=== PATIENT | male | born 1950 | race Two or more races ===

== ENCOUNTER 2016-09-22 08:16 | Outpatient (CLI) | payer OTHER ==
[2016-09-22] MEDS ORDERED: CEFTRIAXONE 1 G VIAL IM ONE (11:00)
[2016-09-23] MEDS ORDERED: HYDR25TA4 PO (12:36)
== END 2016-09-22 23:59 | disposition home or self-care (01) ==
LOC: WOU 08:16
PROVIDERS: ATTEND Podiatrist Foot & Ankle Surgery
DX: L89.624 Pressure ulcer of left heel, stage 4 (principal); B35.1 Tinea unguium; M20.5X2 Other deformities of toe(s) (acquired), left foot; R26.9 Unspecified abnormalities of gait and mobility; L03.116 Cellulitis of left lower limb; M10.9 Gout, unspecified; K50.90 Crohn's disease, unspecified, without complications
CPT/HCPCS: 11044; 11047; 87070; 87077; 87186 ×2; 96372; A6402; J0696; J3490

== ENCOUNTER 2016-09-23 09:22 | Inpatient (IN) | payer MEDICARE, OTHER ==
[~2016-09-23] VITALS: Ht 182.9 cm; Wt 99.8 kg
--- NOTE | 2016-09-23 09:41 | NUR ---
pt came in from home, BRIB self c/o L heel ulcer, noted 6x6 ulcer without discharge, VS stable, a/o x 4, Addendum: 09/23/16 at 1112 by HFOX skin warm, non diaphoretic, resp even/unlabored, ambulatory with pain, pulses intact, noted with ortho boot
[2016-09-23] MEDS ORDERED: VANCOMYCIN 1 GM in IV D5W 250 ML IV ONE (10:00)
[2016-09-23] MEDS ORDERED: PIPERACILLIN /TAZOBACTAM 3.375 G in IV D5W 50 ML IV ONE (10:00)
[2016-09-23] MEDS ORDERED: IV NS 0.9% 1,000 ML BAG IV ONE (10:00)
[2016-09-23 10:14] LABS: BASOPHILS % (AUTO) 0.7 % (0.0-2.0); EOSINOPHILS # (AUTO) 0.1 /CMM (0.0-0.7); EOSINOPHILS % (AUTO) 2.5 % (0.0-6.0); HEMATOCRIT 31 % (39-51); HEMOGLOBIN 10.3 g/dL (13.5-17.5); LYMPHOCYTES # (AUTO) 0.4 /CMM (0.8-4.8); LYMPHOCYTES % (AUTO) 16.9 % (20.0-44.0); MEAN CORPUSCULAR HEMOGLOBIN 27 PG (26.0-33.0); MEAN CORPUSCULAR HGB CONC 33 g/dl (31.0-36.0); MEAN CORPUSCULAR VOLUME 82 fL (80-96); MONOCYTES # (AUTO) 0.7 /CMM (0.1-1.30); MONOCYTES % (AUTO) 29.1 % (2.0-12.0); NEUTROPHILS # (AUTO) 1.1 /CMM (1.8-8.9); NEUTROPHILS % (AUTO) 50.8 % (43.0-81.0); PLATELET COUNT (AUTO) 166 /CMM (150-450); RDW COEFFICIENT OF VARIATION 19.8 (11.5-15.0); RED BLOOD CELL COUNT(AUTO) 3.81 MIL/uL (4.5-6.0); WHITE BLOOD COUNT (AUTO) 2.3 K/uL (4.3-11.0)
[2016-09-23] MEDS ORDERED: IV SET PRIMARY 1 EA INFUS.SET MC ONE (10:16)
[2016-09-23] MEDS ORDERED: IV NS 0.9% 3,000 ML ONE (10:16)
[2016-09-23] MEDS ORDERED: IV SET PRIMARY PUMP SET 1 EA INFUS.SET MC ONE (10:16)
[2016-09-23 10:21] LABS: CALCIUM, SERUM 7.7 mg/dL (8.5-10.1); CREATININE 0.9 mg/dL (0.6-1.3); POTASSIUM 3.8 mmol/L (3.5-5.1)
[2016-09-23 10:25] LABS: INR 1.2 (0.87-1.13); PROTHROMBIN TIME 12.6 SECS (9.5-12.7)
--- NOTE | 2016-09-23 10:35 | NUR ---
[facility] P[employer]ATE COMMUNICATIONS SPECIALIST IS DR ROBERTSON
[2016-09-23 10:52] LABS: BAND % (MANUAL) 2 % (0.0-5.0); EOSINOPHILS % (MANUAL) 1 % (0-4); LYMPHOCYTES % (MANUAL) 20 % (16-48); MONOCYTES % (MANUAL) 15 % (0-11.0); NEUTROPHILS % (MANUAL) 62 (42-76)
--- NOTE | 2016-09-23 10:53 | NUR ---
pt dispo: to 203, report to Reema MOJICA verbalized understnading, breating even/unlabored, VS stable, all belongings went with pt to room
--- NOTE | 2016-09-23 11:03 | NUR ---
pt transported to 203, VS stable, NAD noted, all belongings went with pt to room, IVF/ABX on going
[2016-09-23] MEDS ORDERED: FEE PK DOSING 1 MIN EA MC ONE (11:53)
[2016-09-23 12:00] VITALS: BP 133/74
[2016-09-23] MEDS ORDERED: MAGNESIUM HYDROXIDE 30 ML UDC PO PRN (12:00)
[2016-09-23] MEDS ORDERED: Z GUARD REMEDY 2 OZ OINT TP PRN (12:00)
[2016-09-23] MEDS ORDERED: MAG HYDROX/AL HYDROX/SIMETH 30 ML UDC PO PRN (12:00)
[2016-09-23] MEDS ORDERED: ONDANSETRON HCL/PF 4 MG/2 ML VIAL IVP PRN (12:00)
[2016-09-23] MEDS ORDERED: ZOLPIDEM TARTRATE 5 MG TABLET PO PRN (12:00)
[2016-09-23] MEDS ORDERED: ACETAMINOPHEN 325 MG TABLET PO PRN (12:00)
[2016-09-23] MEDS: HYDROCODONE/APAP 5/325MG 1 EACH TABLET PO PRN ×3 (12:19→20:31)
[2016-09-23] MEDS: ENOXAPARIN SODIUM 40 MG/0.4 ML DISP.SYRIN SQ SCH (12:21)
[2016-09-23] MEDS: IV NS 0.9% 1,000 ML IV PRN (12:21)
--- NOTE | 2016-09-23 12:30 | NUR ---
MS RN INITIAL NOTES PATIENT RECEIVED FROM ER IN STABLE CONDITION, NO SOB OR DISTRESS NOTED AT THIS TIME. PATIENT REPORTS TOLERABLE PAIN. PATIENT ORIENTED TO ROOM AND CALL LIGHT. BELONGINGS CHECKED AND VERIFIED. PATIENT HAS 300$ KUHN AND IS REFUSING HAVING HIS WALLET PLACED IN THE SAFE. HE STATES THAT WHEN HIS COMES TO SEE HIM LATER THAT HE WILL SEND IT HOME WITH HER. BED IS IN A LOW POSITION, CALL LIGHT WITHIN PATIENT REACH. WILL CONTINUE TO MONITOR.
[2016-09-23] MEDS ORDERED: HYDR25TA4 PO (12:36)
[2016-09-23] MEDS ORDERED: VANCOMYCIN 1.25 GM in IV D5W 500 ML IV SCH (13:00)
[2016-09-23 16:00] VITALS: BP 146/74
--- NOTE | 2016-09-23 16:06 | NUR ---
RN NOTES CALLED DR ROBERTSON AND INFORMED HER THAT THE MED REC NURSE WAS ABLE TO VERIFY THE PATIENT'S ONE HOME MED. RECEIVED TELEPHONE ORDER TO CONTINUE THE MED. FAXED HOME MED SHEET WITH ORDERS TO PHARMACY.
[2016-09-23] MEDS ORDERED: SECONDARY IV SET 1 EA INFUS.SET MC ONE ×2 (17:50→20:14)
[2016-09-23] MEDS: PIPERACILLIN /TAZOBACTAM 3.375 G in IV D5W 50 ML IV SCH ×2 (18:08→23:18)
--- NOTE | 2016-09-23 18:36 | NUR ---
MS RN CLOSING NOTES NO SIGNIFICANT CHANGES IN PATIENT CONDITION THROUGHOUT THE SHIFT. NO SOB OR DISTRESS NOTED AT THIS TIME. PATIENT DENIES SIGNIFICANT PAIN. BED IN A LOW POSITION, CALL LIGHT WITHIN PATIENT REACH. HAS NOT YET COME TO ASSISTANT ATTORNEY GENERAL PATIENT'S WALLET. WILL ENDORSE FOR KEV.
--- NOTE | 2016-09-23 19:15 | NUR ---
RN INITIAL NOTES: RECEIVED REPORT FROM LALO MOJICA, PT IN BED, SLEEPING, AROUSES TO TACTILE STIMULI, RESPIRATION EVEN AND UNLABORED, RIGHT FA IV ACCESS PATENT AND FLUSHING WELL, INFUSING WITH NS AT 75ML/HR, NO S/S OF REDNESS OR INFILTRATION NOTED, LEFT HEEL WOUND COVERED WITH DRESSING, ELEVATED ON PILLOW, PER DAY RN MRI LEFT FOOT DONE AWAITING RESULT, URINAL WITHIN REACH, SAFETY PRECAUTIONS FOR FALL INITIATED CALL LIGHT IN REACH WILL CONTINUE TO MONITOR
[2016-09-23 20:00] VITALS: BP 116/57
[2016-09-23] MEDS ORDERED: SET RED CAP 1 EA INFUS.SET MC ONE (20:14)
[2016-09-23] MEDS: VANCOMYCIN 1.25 GM in IV D5W 500 ML IV SCH (20:16)
[2016-09-23] MEDS: GENTAMICIN 0.1% OINT 15 GM TUBE TP SCH ×2 (20:17→21:07)
--- NOTE | 2016-09-23 20:17 | NUR ---
REFUSAL FOR DRESSING CHANGE AND GENTAMICIN OINTMENT: INFORMED PT ABOUT OINTMENT CALLED GENTAMICIN TO BE APPLIED TO THE WOUND, AND THE NEED FOR NEW DRESSING CHANGE, PER PT DAY YUNIOR JURADO DID DRESSING CHANGED TWICE TODAY AND HE DOESNT WANT ANOTHER DRESSING CHANGE AT THIS TIME, INFORMED PT ABOUT IMPORTANCE OF CLEANING THE WOUND AND MEDICATION COMPLIANCE BUT PT REFUSED, PT IS ALERT ORIENTED X4, WILL OFFER AGAIN DRESSING CHANGE AND OINTMENT LATER
--- NOTE | 2016-09-23 20:31 | NUR ---
PRN NORCO: PT C/O 10/05 PAIN ON LEFT FOOT AND HEEL, REQUESTING FOR NORCO, PRN NORCO 5/325 MG TAB PO ADMINISTERED TO THE PT AT TIS TIME, EDUCATE PT REGARDING MEDICATION SIDE EFFECT, WILL CONTINUE TO MONITOR AND REASSESS
--- NOTE | 2016-09-23 21:24 | NUR ---
WOUND CARE: WOUND CARE DONE ORDERED, PT TOLERATED DRESSING CHANGE WELL, KEPT LLE OFFLOADED ON PILLOW
--- NOTE | 2016-09-23 21:36 | NUR ---
reassessment: pt stated he's pain is lessened from 10/05 to 07/06, after norco and dressing changed, but he's requesting for his a stronger medication to help alleviate his pain in left foot and heel
--- NOTE | 2016-09-23 22:14 | NUR ---
EPIC LOOM FIXER HELPER: CONTACTED DR STOKES REGARDING PT'S C/O PAIN DESPITE GETTING NORCO PRN Q4HR, PER MD TO GIVE MORPHINE 2MG IVP Q4HR PRN FOR PAIN -01/05
--- NOTE | 2016-09-23 23:00 | NUR ---
rn notes: seen pt sleeping at this time, appears calm and comfortable
[2016-09-24] MEDS: HYDROCODONE/APAP 5/325MG 1 EACH TABLET PO PRN ×5 (04:33→21:20)
--- NOTE | 2016-09-24 04:33 | NUR ---
prn norco: pt c/o 09/05 pain on his left foot requesting for pain medication, prn norco 5/325 mg tab po administered to the pt at this time, will cotninue to monitor and reasses
--- NOTE | 2016-09-24 04:53 | NUR ---
hearing aid left ear: pt noted to have hearing aid on left ear, he removed it when sleeping, and put it back on when awake, informed pt to put it in a cap to make sure its not misplace or something, but pt stated its okay for him to put the hearing aid in the bed side table,
[2016-09-24] MEDS: PIPERACILLIN /TAZOBACTAM 3.375 G in IV D5W 50 ML IV SCH ×3 (05:00→17:19)
[2016-09-24 06:42] LABS: BASOPHILS % (AUTO) 0.8 % (0.0-2.0); EOSINOPHILS # (AUTO) 0.1 /CMM (0.0-0.7); EOSINOPHILS % (AUTO) 6.9 % (0.0-6.0); HEMATOCRIT 30 % (39-51); HEMOGLOBIN 9.9 g/dL (13.5-17.5); LYMPHOCYTES # (AUTO) 0.4 /CMM (0.8-4.8); LYMPHOCYTES % (AUTO) 20.9 % (20.0-44.0); MEAN CORPUSCULAR HEMOGLOBIN 27 PG (26.0-33.0); MEAN CORPUSCULAR HGB CONC 34 g/dl (31.0-36.0); MEAN CORPUSCULAR VOLUME 82 fL (80-96); MONOCYTES # (AUTO) 0.5 /CMM (0.1-1.30); MONOCYTES % (AUTO) 28.5 % (2.0-12.0); NEUTROPHILS # (AUTO) 0.7 /CMM (1.8-8.9); NEUTROPHILS % (AUTO) 42.9 % (43.0-81.0); PLATELET COUNT (AUTO) 124 /CMM (150-450); RDW COEFFICIENT OF VARIATION 21.3 (11.5-15.0); RED BLOOD CELL COUNT(AUTO) 3.62 MIL/uL (4.5-6.0)
--- NOTE | 2016-09-24 06:43 | NUR ---
RN CLOSING NOTES: PT IN BED, AWAKE, LAST PAIN MEDS GIVEN AT 0433am, NO SOB NOTED, RFA IV ACCESS REMAINS PATENT AND FLUSHING WELL, ON HL, PT STILL REFUSED TO BE CONNECTED TO IVF,EDUCATION PROVIDED TO THE PT, LEFT FOOT REMAINS ELEVATED ON PILLOW, NO UNTOWARD EVENT HAPPENED THROUGHOUT THE SHIFT, VS REMAINS STABLE, NEEDS ATTENDED, SAFETY PRECAUTIONS FOR FALL REMAINS ENGAGED, CALL LIGHT IN REACH, WILL ENDORSE TO DAY RN FOR KEV.
[2016-09-24 06:57] LABS: CALCIUM, SERUM 7.7 mg/dL (8.5-10.1); CREATININE 0.8 mg/dL (0.6-1.3); MAGNESIUM 1.5 mg/dL (1.8-2.4); PHOSPHORUS 3.6 mg/dL (2.5-4.9); POTASSIUM 3.5 mmol/L (3.5-5.1)
--- NOTE | 2016-09-24 07:03 | NUR ---
CRITICAL LAB: SEEN LAB RESULT WBC 1.7, PREVIOUS RESULT FROM YESTERDAY WAS 2.3, NO CALL RECEIVE FROM LAB REGARDING RESULT, RN JUST SAW THE RESULT IN THE COMPUTER, CONTACTED [facility] ENDODONTIST, DR ROBERTSON FOR THIS AM, AWAITING FOR CALL BACK
[2016-09-24 07:25] LABS: WHITE BLOOD COUNT (AUTO) 1.7 K/uL (4.3-11.0)
--- NOTE | 2016-09-24 07:26 | NUR ---
RN NOTES RECEIVED CALL FROM LAB ON THE CRITICAL LAB RESULT OF WBC OF 1.7. [facility] WAS CALLED AT 0703 BY MERGERS AND ACQUISITIONS CONSULTANT. STILL NO CALL BACK FROM DR ROBERTSON. WILL ATTEMPT SECOND CALL.
--- NOTE | 2016-09-24 07:38 | NUR ---
MS RN NOTES CALLED [facility] AGAIN AND THEY ARE PAGING DR ROBERTSON ABOUT THE CRITICAL WBC OF 1.7. WAITING FOR A RETURN CALL.
--- NOTE | 2016-09-24 07:41 | NUR ---
RN NOTES RECEIVED CALL FROM DR ROBERTSON. STATES THAT SHE WILL HAVE DR PERALTA SEE THE PATIENT ABOUT THE DROP IN WHITE BLOOD CELLS. NO NEW ORDERS. Addendum: 09/24/16 at 0743 by SAY PATRICK RN PLACED CONSULT FOR DR PERALTA
[2016-09-24 07:58] VITALS: BP 144/74
[2016-09-24] MEDS: PANTOPRAZOLE 40 MG TABLET.DR PO SCH (08:03)
[2016-09-24] MEDS: ENOXAPARIN SODIUM 40 MG/0.4 ML DISP.SYRIN SQ SCH (08:03)
[2016-09-24] MEDS: HYDROCHLOROTHIAZIDE 25 MG TABLET PO SCH (08:03)
[2016-09-24] MEDS: FLUCONAZOLE (100 MG) 100 MG TABLET PO SCH (08:03)
[2016-09-24] MEDS: VANCOMYCIN 1.25 GM in IV D5W 500 ML IV SCH (08:03)
[2016-09-24] MEDS: DAKINS QUARTER STRENGTH (0.125%) 480 ML BOTTLE TOP SCH (08:04)
[2016-09-24] MEDS: MUPIROCIN OINT 2% 22 GM TUBE TP SCH (08:05)
[2016-09-24 08:15] LABS: BAND % (MANUAL) 3 % (0.0-5.0); EOSINOPHILS % (MANUAL) 6 % (0-4); LYMPHOCYTES % (MANUAL) 22 % (16-48); MONOCYTES % (MANUAL) 17 % (0-11.0); NEUTROPHILS % (MANUAL) 52 (42-76)
[2016-09-24] MEDS ORDERED: GENTAMICIN 0.1% OINT 15 GM TUBE TP SCH (09:00)
[2016-09-24] MEDS: IV NS 0.9% 1,000 ML IV PRN (11:16)
[2016-09-24] MEDS ORDERED: SECONDARY IV SET 1 EA INFUS.SET MC ONE ×3 (12:02→18:13)
[2016-09-24] MEDS: Magnesium 1GM/D5W 100ML PREMIX 100 ML IV SCH ×2 (12:07→13:07)
[2016-09-24] MEDS: SOD FERRIC GLUC 125 MG in IV NS 0.9% 100 ML IV SCH (14:53)
[2016-09-24 16:00] VITALS: BP 150/80
[2016-09-24] MEDS: LEVOFLOXACIN (500MG) 500 MG TABLET PO SCH (18:47)
--- NOTE | 2016-09-24 19:08 | NUR ---
MS RN CLOSING NOTES NO SIGNIFICANT CHANGES IN PATIENT CONDITION THROUGHOUT THE SHIFT. NO SOB OR DISTRESS NOTED, PATIENT DENIES PAIN AT THIS TIME. BED IN A LOW POSITION, CALL LIGHT WITHIN PATIENT REACH. WILL ENDORSE FOR KEV. STILL WAITING FOR PHARMACY TO DELIVER ROCEPHIN DUE AT 1830. WILL HANG IF DELIVERED BEFORE 1930.
--- NOTE | 2016-09-24 19:20 | NUR ---
RN INITIAL NOTES: RECEIVED REPORT FROM SAY MOJICA, PT IS AWAKE, A/O X4, C/O 4/10 PAIN ON LEFT FOOT, STATED HE WILL WAIT FOR HIS PAIN MEDS AT 2100. RESPIRATION EVEN AND UNLABORED, RIGHT FA IV ACCESS PATENT AND FLUSHING WELL, INFUSING WITH NS AT 75ML/HR, NO S/S OF REDNESS OR INFILTRATION NOTED, LEFT HEEL WOUND COVERED WITH DRESSING, ELEVATED ON PILLOW, URINAL WITHIN REACH, SAFETY PRECAUTIONS FOR FALL INITIATED CALL LIGHT IN REACH WILL CONTINUE TO MONITOR
[2016-09-24] MEDS: CEFTRIAXONE 1 G in IV D5W 50 ML IV SCH (19:32)
--- NOTE | 2016-09-24 19:59 | NUR ---
dr rodrigues coinsultation: dr rodrigues came to see the pt, with new orders for labs and us abdomen complete for tomorrow 09/25/16
[2016-09-24 20:00] VITALS: BP 142/70
--- NOTE | 2016-09-24 21:21 | NUR ---
PRN NORCO: PT C/O 09/05 LEFT FOOT PAIN REQUESTING FOR NOROC, PRN NORCO 5/325 MG TAB PO ADMINISTERED TO THE PT AT THIS TIME, EDUCATE PT REGARDING MEDICATION SIDE EFFECT, WILL CONTINUE TO MONITOR AND REASSESS
--- NOTE | 2016-09-24 21:56 | NUR ---
REFUSAL FOR IVF: PT REFUSED TO BE CONNECTED WITH IVF, EXPLAINED TO THE PT ABOUT IMPORTANCE RISK AND BENEFITS OF IV HYDRATION, PER PT HE DOESNT NEED IT AND HE'S DRINKING WELL, ADEQUATE, INFORMED PT HE WILL BE NPO XMEDS AT MEDNIGHT AND THUS HE NEEDS IVF HYDRATION, PER PT HE DOESNT WANT IT,
[2016-09-24] MEDS: GENTAMICIN 0.1% OINT 15 GM TUBE TP SCH (22:06)
[2016-09-25] VITALS (9 sets, daily range): BP systolic 148–176; BP diastolic 69–94
--- NOTE | 2016-09-25 | NUR ---
RN NOTES: SEEN PT SLEEPING AT THIS TIME, APPEARS COMFORTABLE, NO FACIAL GRIMACE NOTED NOT IN ANY APPARENT DISTRESS WILL CONTINUE TO MONITOR
[2016-09-25] MEDS: HYDROCODONE/APAP 5/325MG 1 EACH TABLET PO PRN ×3 (04:20→15:44)
--- NOTE | 2016-09-25 04:20 | NUR ---
PRN NORCO: PT C/O 10/05 PAIN IN HIS LEFT FOOT REQUESTING FOR MEDICATION, PRN NORCO 5/325 MG TAB PO ADMINISTERED TO THE PT AT THIS TIME, WILL CONTINUE TO MONITOR AND REASSESS
--- NOTE | 2016-09-25 05:02 | NUR ---
WOUND CARE: WOUND CARE DONE ORDERED, PT REQUESTED FOR DRESSING CHANGE
[2016-09-25 06:30] LABS: EOSINOPHILS # (AUTO) 0.1 /CMM (0.0-0.7); EOSINOPHILS % (AUTO) 6.4 % (0.0-6.0); HEMATOCRIT 31 % (39-51); HEMOGLOBIN 10.3 g/dL (13.5-17.5); LYMPHOCYTES # (AUTO) 0.4 /CMM (0.8-4.8); LYMPHOCYTES % (AUTO) 27.5 % (20.0-44.0); MEAN CORPUSCULAR HEMOGLOBIN 28 PG (26.0-33.0); MEAN CORPUSCULAR HGB CONC 34 g/dl (31.0-36.0); MEAN CORPUSCULAR VOLUME 82 fL (80-96); MONOCYTES # (AUTO) 0.4 /CMM (0.1-1.30); MONOCYTES % (AUTO) 24.6 % (2.0-12.0); NEUTROPHILS # (AUTO) 0.6 /CMM (1.8-8.9); NEUTROPHILS % (AUTO) 40.5 % (43.0-81.0); PLATELET COUNT (AUTO) 133 /CMM (150-450); RDW COEFFICIENT OF VARIATION 20.8 (11.5-15.0); RED BLOOD CELL COUNT(AUTO) 3.73 MIL/uL (4.5-6.0)
--- NOTE | 2016-09-25 06:30 | NUR ---
STOOL OB: PT HAD BM, TOOK SAMPLE AND SEND IT TO LAB,
--- NOTE | 2016-09-25 06:39 | NUR ---
RN CLOSING NOTES: PT IN BED, AWAKE, DENIES ANY SOB AT THIS TIME, LAST PAIN MEDS GIVEN AT 0430, PT KEPT REFUSING FOR IVF, PT NPO EXCEPT MEDS, FOR LEFT FOOT DEBRIDEMENT WITH POSSIBLE WOUND VAC PLACEMENT AND ALLOGRAFT, CONSENT SECURED AND CHECKLIST COMPLETED, VS REMAINS STABLE, NEEDS ATTENDED, SAFETY PRECAUTIONS FOR FALL REMAINS ENGAGED, CALL LIGHT IN REACH, WILL ENDORSE TO DAY RN FOR KEV.
[2016-09-25 06:47] LABS: ALBUMIN 2.4 g/dL (3.4-5.0); BILIRUBIN,DIRECT 0.2 mg/dL (0.0-0.2); BILIRUBIN,TOTAL 0.5 mg/dL (0.2-1.0); TOTAL PROTEIN, SERUM 7.1 g/dL (6.4-8.2)
[2016-09-25 06:55] LABS: CALCIUM, SERUM 8.1 mg/dL (8.5-10.1); CREATININE 0.8 mg/dL (0.6-1.3); MAGNESIUM 1.7 mg/dL (1.8-2.4); POTASSIUM 3.4 mmol/L (3.5-5.1)
[2016-09-25 07:12] LABS: WHITE BLOOD COUNT (AUTO) 1.6 K/uL (4.3-11.0)
--- NOTE | 2016-09-25 07:12 | NUR ---
CRITICAL LAB: RECEIVED CRITICAL LAB RESULT FOR WBC OF 1.6, REPORTED BY LAB DRAKE JAIMES, PT ALREADY HAVE CONSULT WITH DR PERALTA REGARDING THIS PROBLEM (WBC LOW), DR PERALTA HAVE ORDERED LABS FOR TODAY INCLUDING PANCYTOPENIA WORK UP, LFT'S STOOL OB, TSH B12 FERRITIN FREE T4 AND US ABDOMEN COMPLETE, ENDORSED TO DAY YUNIOR LOGAN
--- NOTE | 2016-09-25 07:46 | NUR ---
RN MS NOTES PATIENT IS IN BED, ALERT AND ORIENTED, AMBULATE INDEPENDENTLY, NPO EXCEPT MEDS TODAY FOR WOUND DEBRIDEMENT WITH DR. JUNE, CONSENT AND CHECKLIST COMPLETED, PATIENT WITH NO COMPLAINT OF PAIN AT THIS TIME, ASSISTED WITH ADLS, PIV ON RFA PATENT AND INTACT, FLUSHES WELL, NO S/SX OF INFILTRATION, ALL NEEDS ATTENDED, CALL LIGHT WITHIN REACH, WILL CONTINUE TO MONITOR.
[2016-09-25 08:17] LABS: INR 1.2 (0.87-1.13)
[2016-09-25] MEDS: ENOXAPARIN SODIUM 40 MG/0.4 ML DISP.SYRIN SQ SCH (08:20)
[2016-09-25] MEDS: HYDROCHLOROTHIAZIDE 25 MG TABLET PO SCH (08:23)
[2016-09-25] MEDS: PANTOPRAZOLE 40 MG TABLET.DR PO SCH (08:23)
[2016-09-25] MEDS: MUPIROCIN OINT 2% 22 GM TUBE TP SCH (08:24)
[2016-09-25] MEDS: DAKINS QUARTER STRENGTH (0.125%) 480 ML BOTTLE TOP SCH (08:24)
[2016-09-25] MEDS: FLUCONAZOLE (100 MG) 100 MG TABLET PO SCH (08:27)
--- NOTE | 2016-09-25 09:43 | NUR ---
WOUND CARE CONSULT: PT NOT SEEN YET FOR SKIN ASSESSMENT DUE TO PT HAVING PROCEDURE AT THIS TIME. NELLY SCORE CURRENTLY 19. PT AMBULATORY PER NURSING NOTE. DEFER TO DR JUNE FOR LEFT HEEL WOUND. WILL SEE PRN.
[2016-09-25 10:03] LABS: EOSINOPHILS % (MANUAL) 4 % (0-4); LYMPHOCYTES % (MANUAL) 29 % (16-48); MONOCYTES % (MANUAL) 26 % (0-11.0); NEUTROPHILS % (MANUAL) 41 (42-76)
[2016-09-25 10:10] LABS: THYROID STIMULATING HORMONE 2.067 uIU/mL (0.358-3.74)
[2016-09-25] MEDS ORDERED: LIDOCAINE HCL/PF 1% 30 ML SDV ONE (11:39)
[2016-09-25] MEDS ORDERED: BUPIVACAINE MPF 0.5% W/EPI INJ 30 ML VIAL ONE (11:39)
--- NOTE | 2016-09-25 11:50 | NUR ---
RN MS NOTES PATIENT BROUGHT TO OR FOR WOUND DEBRIDEMENT, STABLE CONDITION. PRE-OP CHECKLIST COMPLETED, LAB RESULTS TO ALCOHOL STILL OPERATOR AND WILL RELAY TO DR. JUNE.
[2016-09-25] MEDS ORDERED: HYDROGEN PEROXIDE 480 ML BOTTLE ONE (12:30)
[2016-09-25] MEDS ORDERED: VANCOMYCIN 1 GM VIAL ONE (12:30)
[2016-09-25] MEDS ORDERED: POTASSIUM CHLORIDE 20 MEQ TAB.PRT.SR PO SCH (12:30)
--- NOTE | 2016-09-25 13:30 | NUR ---
RN MS NOTES PATIENT CAME BACK FROM OR IN STABLE CONDITION, ALERT AND ORIENTED, DENIES PAIN AT THIS TIME, VITAL SIGNS STABLE AND WILL BE MONITORED, PLACED COMFORTABLY IN BED, LEFT FOOT ELEVATED, RECEIVED NEW ORDERS FROM DR. JUNE, ORDER NOTED AND TANK WHARTON.
--- NOTE | 2016-09-25 14:50 | NUR ---
RN MS NOTES DRESSING ON LEFT FOOT REINFORCED, PHOTO TAKEN WITH XEROFORM DUE TO THE ALLOGRAFT PLACEMENT, INSTRUCTED PATIENT NOT TO BEAR WEIGHT ON LEFT FOOT, AND VERBALIZED UNDERSTANDING, ELEVATED WITH PILLOWS. CALL LIGHT WITHIN REACH, SAFETY MEASURES IN PLACED, WILL CONTINUE TO MONITOR.
[2016-09-25] MEDS ORDERED: SECONDARY IV SET 1 EA INFUS.SET MC ONE (14:55)
[2016-09-25] MEDS ORDERED: LIDOCAINE 1% INJ 50 ML MDV IJ ONE (15:00)
[2016-09-25] MEDS: Magnesium 1GM/D5W 100ML PREMIX 100 ML IV SCH ×2 (15:09→16:45)
[2016-09-25] MEDS ORDERED: CT SWABBABLE VALVE TRANS SET 1 EA INFUS.SET MC ONE (15:15)
[2016-09-25] MEDS ORDERED: IOHEXOL-300 100 ML VIAL IV ONE (15:15)
[2016-09-25] MEDS ORDERED: IV NS 0.9% 250 ML IV ONE (15:15)
--- NOTE | 2016-09-25 15:15 | NUR ---
YUNIOR MATHEW NOTES PATIENT SEEN BY DR. PERALTA WITH NEW ORDERS, ORDER NOTED AND CARRIED OUT, DISCUSSED CT SCAN OF ABDOMEN AND PELVIC WITH CONTRAST TODAY AND A BONE MARROW BIOPSY FOR TOMORROW. PATIENT AGREED AND SIGNED CONSENT, PATIENT WAS THEN BROUGHT DOWN TO RADIOLOGY FOR CT SCAN VIA WHEELCHAIR. Addendum: 09/25/16 at 1632 by VANESA PATRICIA RN WRONG TIME DOCUMENTED: CORRECT TIME IS 1400.
[2016-09-25] MEDS: SOD FERRIC GLUC 125 MG in IV NS 0.9% 100 ML IV SCH (16:42)
--- NOTE | 2016-09-25 17:37 | NUR ---
RN MS NOTES RESULT OF CT SCAN OF ABDOMEN AND PELVIC RELAYED TO DR. PERALTA AND DR. ROBERTSON, NO NEW ORDER AT THIS TIME.
--- NOTE | 2016-09-25 18:48 | NUR ---
RN MS NOTES PATIENT IN BED, LEFT FOOT ELEVATED, KEPT DRESSING C/D/I, DENIES PAIN OR DISCOMFORT AT THIS TIME, PIV ON RFA PATENT AND INTACT, ATE DINNER AND TOLERATED WELL, ALL NEEDS ATTENDED, CALL LIGHT WITHIN REACH, SAFETY MEASURES IN PLACED, WALKER AND CRUTCHES AT BEDSIDE AVAILABLE FOR USE, WILL ENDORSE TO PLANT AND INSTRUMENT ENGINEER FOR KEV.
[2016-09-25] MEDS: LEVOFLOXACIN (500MG) 500 MG TABLET PO SCH (18:59)
[2016-09-25] MEDS: CEFTRIAXONE 1 G in IV D5W 50 ML IV SCH (18:59)
--- NOTE | 2016-09-25 19:30 | NUR ---
MS RN OPENING NOTES: PATIENT IN BED, AOX4, ON ROOM AIR, BREATHING EVEN AND UNLABORED, APPEARS CALM AND IN NO DISTRESS, JUST STATED THAT HE HAS SLIGHT TINGLING PAIN OVER HIS LEFT FOOT SCALED AT 2/10. NOTED LEFT FOOT WITH CLEAN, INTACT DRESSING, ELEVATED ON PILLOW. PIV OVER RFA G 18 INTACT AND PATENT, INFUSING WELL WITH NS RUNNING AT 75 ML/HR. PROVIDED FOR COMFORT AND SAFETY. ADVISED ON NWB AT ALL TIMES FOR LEFT FOOT. WILL CONT TO MONITOR.
[2016-09-25] MEDS: MORPHINE SULFATE INJ 2 MG/ML DISP.SYRIN IV PRN (20:59)
--- NOTE | 2016-09-25 21:05 | NUR ---
RN NOTES: PATIENT COMPLAINED OF 8/10 PAIN OVER LEFT FOOT. ADMINISTERED MORPHINE 2 MG IV PRN. NON PHARM MEASURES FOR PAIN RELIEF ALSO GIVEN (DISTRACTION, SNACKS AND POSITIONED FOR COMFORT). WILL CONT TO MONITOR.
[2016-09-25] MEDS: GENTAMICIN 0.1% OINT 15 GM TUBE TP SCH (21:45)
[2016-09-26] MEDS: IV NS 0.9% 1,000 ML IV PRN (03:18)
[2016-09-26] MEDS: HYDROCODONE/APAP 5/325MG 1 EACH TABLET PO PRN (05:15)
--- NOTE | 2016-09-26 05:15 | NUR ---
RN NOTES: PATIENT C/O 6/10 PAIN OVER LEFT FOOT, AND ASKED FOR NORCO, SAYING THAT HE FEELS THAT ITS ANALGESIC EFFECT LASTS LONGER THAN THE MORPHINE. ADMINISTERED NORCO 5-325 MG 1 TAB PO PRN.
--- NOTE | 2016-09-26 06:37 | NUR ---
MS RN CLOSING NOTES: PATIENT IN BED, AOX4, ON ROOM AIR, BREATHING EVEN AND UNLABORED. PIV OVER RFA G 18 INTACT AND PATENT , INFUSING WELL WITH NS RUNNING AT 75 ML/HR. REPLACED DRESSING ON LEFT FOOT, MAINTAINED ON NWB STATUS. PROVIDED FOR COMFORT AND SAFETY. DUE MEDS GIVEN. NO ACUTE CHANGE IN CONDITION NOTED THROUGH SHIFT. WILL ENDORSE TO AM RN FOR KEV.
[2016-09-26 06:47] LABS: BASOPHILS % (AUTO) 0.3 % (0.0-2.0); EOSINOPHILS % (AUTO) 2.4 % (0.0-6.0); HEMATOCRIT 31 % (39-51); HEMOGLOBIN 10.2 g/dL (13.5-17.5); LYMPHOCYTES # (AUTO) 0.5 /CMM (0.8-4.8); LYMPHOCYTES % (AUTO) 33.6 % (20.0-44.0); MEAN CORPUSCULAR HEMOGLOBIN 27 PG (26.0-33.0); MEAN CORPUSCULAR HGB CONC 33 g/dl (31.0-36.0); MEAN CORPUSCULAR VOLUME 82 fL (80-96); MONOCYTES # (AUTO) 0.3 /CMM (0.1-1.30); MONOCYTES % (AUTO) 19.8 % (2.0-12.0); NEUTROPHILS # (AUTO) 0.7 /CMM (1.8-8.9); NEUTROPHILS % (AUTO) 43.9 % (43.0-81.0); PLATELET COUNT (AUTO) 131 /CMM (150-450); RDW COEFFICIENT OF VARIATION 21.2 (11.5-15.0); RED BLOOD CELL COUNT(AUTO) 3.75 MIL/uL (4.5-6.0)
[2016-09-26 06:53] LABS: CALCIUM, SERUM 8.1 mg/dL (8.5-10.1); CREATININE 0.8 mg/dL (0.6-1.3); MAGNESIUM 1.8 mg/dL (1.8-2.4); PHOSPHORUS 4.3 mg/dL (2.5-4.9); POTASSIUM 3.6 mmol/L (3.5-5.1)
[2016-09-26 06:58] LABS: INR 1.19 (0.87-1.13); PROTHROMBIN TIME 12.9 SECS (9.5-12.7)
--- NOTE | 2016-09-26 07:15 | NUR ---
ms rn initial notes Received patient in bed, awake, head of bed elevated, no SOB or distress noted, on room air and tolerated well. IV intact with IVF infusing well. Alert and oriented x 4 verbally responsive and able to make needs known. Kept patient clean and comfortable in bed call light with in patient reach, will continue to monitor accordingly.
[2016-09-26 07:45] LABS: WHITE BLOOD COUNT (AUTO) 1.6 K/uL (4.3-11.0)
[2016-09-26 08:00] VITALS: BP 148/71
[2016-09-26] MEDS: HYDROCHLOROTHIAZIDE 25 MG TABLET PO SCH (08:14)
[2016-09-26] MEDS: PANTOPRAZOLE 40 MG TABLET.DR PO SCH (08:14)
[2016-09-26] MEDS: FLUCONAZOLE (100 MG) 100 MG TABLET PO SCH (08:15)
[2016-09-26] MEDS: ENOXAPARIN SODIUM 40 MG/0.4 ML DISP.SYRIN SQ SCH (08:17)
[2016-09-26] MEDS: DAKINS QUARTER STRENGTH (0.125%) 480 ML BOTTLE TOP SCH (08:18)
[2016-09-26] MEDS: MUPIROCIN OINT 2% 22 GM TUBE TP SCH (08:18)
[2016-09-26 08:26] LABS: BAND % (MANUAL) 3 % (0.0-5.0); EOSINOPHILS % (MANUAL) 3 % (0-4); LYMPHOCYTES % (MANUAL) 32 % (16-48); MONOCYTES % (MANUAL) 15 % (0-11.0); NEUTROPHILS % (MANUAL) 45 (42-76); REACTIVE LYMPHOCYTES 2 % (0-0)
[2016-09-26] MEDS ORDERED: FLUCONAZOLE (100 MG) 100 MG TABLET PO SCH (09:00)
[2016-09-26] MEDS: SOD FERRIC GLUC 125 MG in IV NS 0.9% 100 ML IV SCH (14:23)
[2016-09-26 16:00] VITALS: BP 157/79
[2016-09-26] MEDS: LEVOFLOXACIN (500MG) 500 MG TABLET PO SCH (16:58)
[2016-09-26] MEDS: CEFTRIAXONE 1 G in IV D5W 50 ML IV SCH (17:43)
[2016-09-26] MEDS: MORPHINE SULFATE INJ 2 MG/ML DISP.SYRIN IV PRN ×2 (17:44→21:46)
--- NOTE | 2016-09-26 19:12 | NUR ---
ms rn closing notes All needs provided, attended, and anticipated. Kept patient clean and comfortable in bed, call light with in patient reach. Endorsed to next shift RN to continue care.
--- NOTE | 2016-09-26 19:35 | NUR ---
RN INITIAL NOTES: RECEIVED REPORT FROM OEF MOJICA, PT IS AWAKE, A/O X4, S/P BONE MARROW BIOPSY TODAY, WITH DRESSING IN PLACED, WITH SCANTY AMOUNT OF FRESH BLOOD, RESPIRATION EVEN AND UNLABORED, RIGHT FA IV ACCESS PATENT AND FLUSHING WELL, ON HL, PT HAS PICC LINE ON BRAN, WITH DOUBLE LUMEN, INFUSING WITH NS AT 75ML/HR, NO S/S OF REDNESS OR INFILTRATION NOTED, S/P LEFT FOOT DEBRIDEMENT ON Wednesday09/25/[address]UNE, LEFT FOOT COVERED WITH DRESSING,C/D/I, NO ACTIVE BLEEDING NOTED, ELEVATED ON PILLOW, URINAL WITHIN REACH, SAFETY PRECAUTIONS FOR FALL INITIATED CALL LIGHT IN REACH WILL CONTINUE TO MONITOR
[2016-09-26 20:00] VITALS: BP 166/86
--- NOTE | 2016-09-26 20:20 | NUR ---
S/P BONE MARROW BIOPSY: PT S/P BONE MARROW BIOPSY AT 1300, DRESSING CAME OFF, NOTED SOME BLEEDING, AND DRY BLOOD IN THE LINEN, INSTRUCTED PT TO BE FLAT ON BED FOR 8HRS TILL 2100, PT AGREE, DRESSING ON LOWER BACK WAS CHANGED, WILL CONTINUE TO MONITOR FOR ANY BLEEDING
[2016-09-26] MEDS: GENTAMICIN 0.1% OINT 15 GM TUBE TP SCH (21:47)
--- NOTE | 2016-09-26 21:49 | NUR ---
PRN MORPHINE: PT C/O 11/05 PAIN ON HIS LEFT FOOT, REQUESTING FOR MORPHINE, PRN MORPHINE 2MG IVP ADMINISTERED TO THE PT AT THIS TIME, EDUCATE PT REGARDING MEDICATION SIDE EFFECT, WILL COTNINUE TO MONITOR AND REASSESS
[2016-09-26 23:00] VITALS: BP 156/79
[2016-09-27] MEDS: MORPHINE SULFATE INJ 2 MG/ML DISP.SYRIN IV PRN (01:51)
--- NOTE | 2016-09-27 01:51 | NUR ---
PRN MORPHINE: PT C/O 11/05 LEFT FOOT PAIN REQUESTING FOR MORPHINE, PRN MORPHINE 2MG IVP ADMINISTERED TO THE PT AT THIS TIME, WILL CONTINUE TO MONITOR AND REASSESS
[2016-09-27 06:41] LABS: CALCIUM, SERUM 7.9 mg/dL (8.5-10.1); CREATININE 0.9 mg/dL (0.6-1.3); POTASSIUM 3.5 mmol/L (3.5-5.1)
--- NOTE | 2016-09-27 06:50 | NUR ---
RN CLOSING NOTES: PT IN BED, AWAKE, LAST PAIN MEDS ADMINISTERED AT 0146AM, BRAN PICC LINE REMAINS PATENT AND FLUSHING WELL, INFUSING WITH NS AT 75ML/HR, LEFT FOOT DRESSING REMAINS C/D/I, NO ACTIVE BLEEDING NOTED, LEG ELEVATED ON PILLOW, LEFT POSTERIOR ILIAC CREST DRESSING REMAINS IN PLACED, NO ACTIVE BLEEDING NOTED, VS REMAINS STABLE, NEEDS ATTENDED, NO UNTOWARD EVENT HAPPENED THROUGHOUT THE SHIFT, BED BRAKES ENGAGED, CALL LIGHT IN REACH, WILL ENDORSE TO DAY RN FOR KEV.
--- NOTE | 2016-09-27 07:15 | NUR ---
ms rn initial notes Received patient in bed, asleep, head of bed elevated, no SOB or distress noted. On room air and tolerated well. Alert and oriented x 4, verbally responsive and able to make needs known. Dressing intact on the left foot. BRAN picc line in placed and patent. Kept patient clean and comfortable in bed, call light with in patient reach, will continue to monitor accordingly.
[2016-09-27 08:00] VITALS: BP 144/72
[2016-09-27 08:06] LABS: IMMUNOGLOBULIN G, SERUM 1228 mg/dL (700-1600); IMMUNOGLOBULIN M, SERUM 296 mg/dL (20-172)
[2016-09-27] MEDS: HYDROCHLOROTHIAZIDE 25 MG TABLET PO SCH (08:17)
[2016-09-27] MEDS: PANTOPRAZOLE 40 MG TABLET.DR PO SCH (08:17)
[2016-09-27] MEDS: ENOXAPARIN SODIUM 40 MG/0.4 ML DISP.SYRIN SQ SCH (08:18)
[2016-09-27] MEDS: FLUCONAZOLE (100 MG) 100 MG TABLET PO SCH (08:18)
[2016-09-27] MEDS: MUPIROCIN OINT 2% 22 GM TUBE TP SCH (08:19)
[2016-09-27] MEDS: DAKINS QUARTER STRENGTH (0.125%) 480 ML BOTTLE TOP SCH (08:19)
[2016-09-27] MEDS: HYDROCODONE/APAP 5/325MG 1 EACH TABLET PO PRN ×2 (08:37→14:40)
[2016-09-27] MEDS: SOD FERRIC GLUC 125 MG in IV NS 0.9% 100 ML IV SCH (14:28)
[2016-09-27 16:00] VITALS: BP 152/78
[2016-09-27] MEDS: LEVOFLOXACIN (500MG) 500 MG TABLET PO SCH (17:31)
[2016-09-27] MEDS: IV NS 0.9% 1,000 ML IV PRN (17:31)
[2016-09-27] MEDS: CEFTRIAXONE 1 G in IV D5W 50 ML IV SCH (17:31)
[2016-09-27 18:34] VITALS: BP 152/78
--- NOTE | 2016-09-27 19:20 | NUR ---
RN INITIAL NOTES: RECEIVED REPORT FROM OFE MOJICA, PT IS AWAKE, A/O X4, S/P LEFT LEG CAST APPLICATION TODAY 09/27/16, CAST C/D/I, LEG ELEVATED ON PILLOW, RESPIRATION EVEN AND UNLABORED, PT HAS PICC LINE ON BRAN, WITH DOUBLE LUMEN, PT REFUSED IVF, EDUCATE PT REGARDING RISK AND BENEFIT, URINAL WITHIN REACH, SAFETY PRECAUTIONS FOR FALL INITIATED CALL LIGHT IN REACH WILL CONTINUE TO MONITOR
[2016-09-27 20:00] VITALS: BP 179/82
--- NOTE | 2016-09-27 21:00 | NUR ---
PAIN ASSESSMENT: PER PATIENT, HE DOESN'T HAVE ANY PAIN AT THIS TIME, ALSO RECHECK VS PLEASE SEE VITAL SIGN SHORT FORM
[2016-09-27 21:58] VITALS: BP 166/72
[2016-09-27] MEDS: GENTAMICIN 0.1% OINT 15 GM TUBE TP SCH (22:00)
--- NOTE | 2016-09-27 22:22 | NUR ---
NON ADMINISTRATION OF GENTAMICIN OINTMENT: GENTAMICIN OINTMENT NOT ADMINISTERED AT THIS TIME PT'S LEFT FOOT AND LEG ON A CAST, PT S/P LEFT LEG CAST APPLICATION AT THIS TIME,
[2016-09-28] VITALS: BP 152/86
[2016-09-28] MEDS: MORPHINE SULFATE INJ 2 MG/ML DISP.SYRIN IV PRN (05:55)
[2016-09-28 06:35] LABS: BASOPHILS % (AUTO) 0.9 % (0.0-2.0); EOSINOPHILS # (AUTO) 0.1 /CMM (0.0-0.7); EOSINOPHILS % (AUTO) 5.2 % (0.0-6.0); HEMATOCRIT 30 % (39-51); HEMOGLOBIN 10.2 g/dL (13.5-17.5); LYMPHOCYTES # (AUTO) 0.5 /CMM (0.8-4.8); LYMPHOCYTES % (AUTO) 29.1 % (20.0-44.0); MEAN CORPUSCULAR HEMOGLOBIN 28 PG (26.0-33.0); MEAN CORPUSCULAR HGB CONC 34 g/dl (31.0-36.0); MEAN CORPUSCULAR VOLUME 83 fL (80-96); MONOCYTES # (AUTO) 0.3 /CMM (0.1-1.30); MONOCYTES % (AUTO) 18.4 % (2.0-12.0); NEUTROPHILS # (AUTO) 0.8 /CMM (1.8-8.9); NEUTROPHILS % (AUTO) 46.4 % (43.0-81.0); PLATELET COUNT (AUTO) 135 /CMM (150-450); RED BLOOD CELL COUNT(AUTO) 3.64 MIL/uL (4.5-6.0)
--- NOTE | 2016-09-28 06:40 | NUR ---
RN CLOSING NOTES: PT IN BED, AWAKE, DENIES ANY PAIN OR DISCOMFORT AT THIS TIME, DENIES ANY SOB, BRAN PICC LINE REMAINS PATENT AND FLUSHING WELL, ON HL, PT REFUSED IVF, LEFT CAST REMAINS IN PLACED , PT DENIES ANY TINGLING NUMBNESS IN THE LEG, KEPT OFFLOADED ON PILLOW. VS REMAINS STABLE, NEEDS ATTENDED, SAFETY PRECAUTIONS FOR FALL REMAINS ENGAGED, CALL LIGHT IN REACH, WILL ENDORSE TO DAY RN FOR KEV.
[2016-09-28 06:50] LABS: CALCIUM, SERUM 8.4 mg/dL (8.5-10.1); CREATININE 0.9 mg/dL (0.6-1.3); MAGNESIUM 1.6 mg/dL (1.8-2.4); PHOSPHORUS 3.9 mg/dL (2.5-4.9); POTASSIUM 3.5 mmol/L (3.5-5.1)
--- NOTE | 2016-09-28 07:30 | NUR ---
RN AM NOTES: RECEIVED PT IN BED, AWAKE, A/O X4, S/P LEFT LEG CAST APPLICATION TODAY 09/27/16, C/D/I, LEG ELEVATED ON PILLOW, ON ROOM AIR, DENIES SOB OR ANY PAIN, PICC LINE ON BRAN, WITH DOUBLE LUMEN, FLUSHES WELL, SITE CLEAR, CDI DRESSING, PT REFUSED IVF, EDUCATE PT REGARDING RISK AND BENEFIT, ON CCHO DIET. URINAL WITHIN REACH, SAFETY PRECAUTIONS IN PLACE, CALL LIGHT IN REACH WILL CONTINUE TO MONITOR
[2016-09-28 07:47] LABS: WHITE BLOOD COUNT (AUTO) 1.8 K/uL (4.3-11.0)
[2016-09-28 08:00] VITALS: BP 157/74
[2016-09-28] MEDS: PANTOPRAZOLE 40 MG TABLET.DR PO SCH (08:35)
[2016-09-28] MEDS: HYDROCHLOROTHIAZIDE 25 MG TABLET PO SCH (08:35)
[2016-09-28] MEDS: FLUCONAZOLE (100 MG) 100 MG TABLET PO SCH (08:35)
[2016-09-28] MEDS: MUPIROCIN OINT 2% 22 GM TUBE TP SCH (08:36)
[2016-09-28] MEDS: DAKINS QUARTER STRENGTH (0.125%) 480 ML BOTTLE TOP SCH (08:36)
[2016-09-28] MEDS: ENOXAPARIN SODIUM 40 MG/0.4 ML DISP.SYRIN SQ SCH (08:37)
--- NOTE | 2016-09-28 09:30 | NUR ---
MS RN NOTES ADMINISTERED DUE MEDS.
[2016-09-28 09:31] LABS: LYMPHOCYTES % (MANUAL) 30 % (16-48); MONOCYTES % (MANUAL) 14 % (0-11.0); NEUTROPHILS % (MANUAL) 48 (42-76)
[2016-09-28 09:32] LABS: EOSINOPHILS % (MANUAL) 8 % (0-4)
[2016-09-28] MEDS ORDERED: SECONDARY IV SET 1 EA INFUS.SET MC ONE ×2 (11:53→15:23)
[2016-09-28] MEDS: Magnesium 1GM/D5W 100ML PREMIX 100 ML IV SCH ×2 (12:00→13:05)
--- NOTE | 2016-09-28 12:00 | NUR ---
RN NOTES STARTED MAGNESIUM IV BAG #1.
[2016-09-28 12:11] LABS: *SPE A/G RATIO 0.8 (0.7-1.7); *SPE ALBUMIN 2.9 g/dL (2.9-4.4); *SPE ALPHA-1-GLOBULIN 0.3 g/dL (0.0-0.4); *SPE ALPHA-2-GLOBULIN 0.6 g/dL (0.4-1.0); *SPE BETA GLOBULIN 0.9 g/dL (0.7-1.3); *SPE GLOBULIN, TOTAL 3.6 g/dL (2.2-3.9); *SPE M-SPIKE Not Observed g/dL (Not Observed); *SPE PROTEIN TOTAL 6.5 g/dL (6.0-8.5); *SPEGAMMA GLOBULIN 1.8 g/dL (0.4-1.8)
--- NOTE | 2016-09-28 13:05 | NUR ---
RN NOTES STARTED MAGNESIUM IV BAG #2.
--- NOTE | 2016-09-28 14:45 | NUR ---
RN NOTES 2ND CALL [place] [facility] [place] SCHED AT 1400.
[2016-09-28] MEDS: SOD FERRIC GLUC 125 MG in IV NS 0.9% 100 ML IV SCH (15:27)
--- NOTE | 2016-09-28 15:27 | NUR ---
RN NOTES STARTED BHAVYAIT IV.
[2016-09-28 16:00] VITALS: BP 174/79
--- NOTE | 2016-09-28 16:19 | NUR ---
RN NOTES PATIENT REFUSED FURTHER TREATMENT. WENT AMA TODAY, DESPITE EXPLAINING THE RISK, PER PATIENT HE HAS HIS OWN GI DOCTOR AND WILL GO FOR COLONOSCOPY AND STATED THAT HE CAME HERE FOR HIS FOOT AND NOT FOR HIS GI PROBLEM. PROVIDED DC INSTRUCTIONS, HEALTH TEACHINGS. PATIENT REFUSED TO HAVE HIS PICC LINE REMOVED AND SAID THAT SOMEONE WILL GO TO HIM FOR HIS IV ANTIBIOTICS. MD AWARE. ALL BELONGINGS CHECKED AND RETURNED. ALL PAPERWORKS SIGNED. ADVISED PATIENT TO SEE HIS PRIMARY DOCTOR CALVIN. UNABLE TO TAKE PHOTOS OF HIS WOUND DUE TO CAST PRESENT. DR MJ DEAL AND NURSING EXTRUDING DEPARTMENT SUPERVISOR AWARE. Addendum: 09/28/16 at 1624 by RAMIRO GARCIA RN ADDENDUM: PATIENT WILL GO HOME VIA PRIVATE CAR BY . Addendum: 09/28/16 at 1639 by RAMIRO GARCIA RN INCIDENT REPORT ON FILE Unique Id: [id number]
[2016-09-30 12:13] LABS: IMMUNOGLOBULIN A, SERUM 961 mg/dL (61-437)
== END 2016-09-28 16:40 | disposition left against medical advice (07) | DRG 464 ==
LOC: EDUNIT# 09:22 → ER 09:24 → MEDSG2 10:32
PROVIDERS: ADMIT Internal Medicine; ATTEND Internal Medicine
PROC: 0QBM0ZZ Excision of Left Tarsal, Open Approach (ICD-10-PCS; 2016-09-25)
PROC: 0HRNXK3 Replacement of Left Foot Skin with Nonautologous Tissue Substitute, Full Thickness, External Approach (ICD-10-PCS; principal; 2016-09-25 12:24)
PROC: 07DR0ZX Extraction of Iliac Bone Marrow, Open Approach, Diagnostic (ICD-10-PCS; 2016-09-26)
PROC: 02HV33Z Insertion of Infusion Device into Superior Vena Cava, Percutaneous Approach (ICD-10-PCS; 2016-09-26)
PROC: B548ZZA Ultrasonography of Superior Vena Cava, Guidance (ICD-10-PCS; 2016-09-26)
DX: M86.8X7 Other osteomyelitis, ankle and foot (principal); E44.1 Mild protein-calorie malnutrition; E87.1 Hypo-osmolality and hyponatremia; D61.818 Other pancytopenia; L03.116 Cellulitis of left lower limb; L97.529 Non-pressure chronic ulcer of other part of left foot with unspecified severity; E66.9 Obesity, unspecified; I73.9 Peripheral vascular disease, unspecified; E78.5 Hyperlipidemia, unspecified; I10 Essential (primary) hypertension; D63.8 Anemia in other chronic diseases classified elsewhere; Z68.29 Body mass index [BMI] 29.0-29.9, adult; R70.0 Elevated erythrocyte sedimentation rate; F10.10 Alcohol abuse, uncomplicated; B95.62 Methicillin resistant Staphylococcus aureus infection as the cause of diseases classified elsewhere; B96.20 Unspecified Escherichia coli [E. coli] as the cause of diseases classified elsewhere; B96.89 Other specified bacterial agents as the cause of diseases classified elsewhere; D72.821 Monocytosis (symptomatic); E53.8 Deficiency of other specified B group vitamins; E83.42 Hypomagnesemia; K70.10 Alcoholic hepatitis without ascites; R26.9 Unspecified abnormalities of gait and mobility; K76.9 Liver disease, unspecified
CPT/HCPCS: 36415; 36569; 71010-TC; 73630-TC; 73718-TC; 76700-TC; 80048-TC; 80061-TC; 80076-TC; 82272-TC; 82728-TC; 82746; 82784; 83540-TC; 83605-TC; 83735-TC; 84100-TC; 84155; 84165; 84439-TC; 84443-TC; 85025-TC; 85610-TC; 85652-TC; 85730-TC; 86140-TC; 86334; 87040-TC; 87070-TC; 87081-TC; 88305-TC; 88311-TC; 93925-TC; 97001-TC; A4606; A6209; A6253; A6402; A6403; J0696; J1100; J1650; J2001; J2270; J2405; J2543; J2704; J2916; J3370; J3475; J3490; J7030; J7050; J7060; Q9967; Z7610

== ENCOUNTER 2016-09-30 14:00 | Outpatient (CLI) | payer OTHER, MEDICARE ==
[~2016-09-30 14:00] MED LIST: HYDR25TA4 PO
== END 2016-09-30 23:59 | disposition home or self-care (01) ==
LOC: WOU 14:00
PROVIDERS: ATTEND Specialist
DX: L89.624 Pressure ulcer of left heel, stage 4 (principal); K50.90 Crohn's disease, unspecified, without complications; Z87.891 Personal history of nicotine dependence; D61.818 Other pancytopenia; M86.372 Chronic multifocal osteomyelitis, left ankle and foot
CPT/HCPCS: 29730; A6402; G0463

== ENCOUNTER 2016-10-15 12:50 | Outpatient (CLI) | payer OTHER, MEDICARE | END 2016-10-15 23:59 | disposition home or self-care (01) | LOC: WOU 12:50 | PROVIDERS: ATTEND Podiatrist Foot & Ankle Surgery | DX: M86.671 Other chronic osteomyelitis, right ankle and foot (principal); T85.628A Displacement of other specified internal prosthetic devices, implants and grafts, initial encounter | CPT/HCPCS: 36569; C1751 ==

== ENCOUNTER 2016-10-21 08:00 | Outpatient (CLI) | payer OTHER, MEDICARE | END 2016-10-21 23:59 | disposition home health service (06) | LOC: WOU 08:00 | PROVIDERS: ATTEND Podiatrist Foot & Ankle Surgery | DX: L89.624 Pressure ulcer of left heel, stage 4 (principal); G62.9 Polyneuropathy, unspecified; L97.521 Non-pressure chronic ulcer of other part of left foot limited to breakdown of skin; M86.672 Other chronic osteomyelitis, left ankle and foot; Z87.891 Personal history of nicotine dependence; Z83.3 Family history of diabetes mellitus; Z80.9 Family history of malignant neoplasm, unspecified; D61.818 Other pancytopenia; K50.018 Crohn's disease of small intestine with other complication | CPT/HCPCS: 11042; A6402 ==

== ENCOUNTER 2016-10-28 09:24 | Outpatient (CLI) | payer OTHER, MEDICARE | END 2016-10-28 23:59 | disposition home health service (06) | LOC: WOU 09:24 | PROVIDERS: ATTEND Podiatrist Foot & Ankle Surgery | DX: L89.624 Pressure ulcer of left heel, stage 4 (principal); L97.521 Non-pressure chronic ulcer of other part of left foot limited to breakdown of skin; Z87.891 Personal history of nicotine dependence; M86.372 Chronic multifocal osteomyelitis, left ankle and foot; D61.818 Other pancytopenia; K50.018 Crohn's disease of small intestine with other complication | CPT/HCPCS: 11042; A6402; G0463 ==

== ENCOUNTER 2016-11-11 13:36 | Outpatient (CLI) | payer OTHER, MEDICARE | END 2016-11-11 23:59 | disposition home health service (06) | LOC: WOU 13:36 | PROVIDERS: ATTEND Podiatrist Foot & Ankle Surgery | DX: G62.9 Polyneuropathy, unspecified (principal); L97.521 Non-pressure chronic ulcer of other part of left foot limited to breakdown of skin; L89.624 Pressure ulcer of left heel, stage 4; M20.42 Other hammer toe(s) (acquired), left foot; L03.032 Cellulitis of left toe; M86.672 Other chronic osteomyelitis, left ankle and foot | CPT/HCPCS: 11042; A6402 ==

== ENCOUNTER 2016-11-18 10:51 | Outpatient (CLI) | payer OTHER, MEDICARE | END 2016-11-18 23:59 | disposition home or self-care (01) | LOC: MRI 10:51 | PROVIDERS: ATTEND Podiatrist Foot & Ankle Surgery | DX: Z75.3 Unavailability and inaccessibility of health-care facilities (principal) ==

== ENCOUNTER 2016-11-18 12:28 | Outpatient (CLI) | payer OTHER, MEDICARE | END 2016-11-18 23:59 | disposition home health service (06) | LOC: WOU 12:28 | PROVIDERS: ATTEND Podiatrist Foot & Ankle Surgery | DX: G62.9 Polyneuropathy, unspecified (principal); L89.624 Pressure ulcer of left heel, stage 4; L97.521 Non-pressure chronic ulcer of other part of left foot limited to breakdown of skin; M20.42 Other hammer toe(s) (acquired), left foot; L03.032 Cellulitis of left toe; B35.3 Tinea pedis | CPT/HCPCS: 11042; 73718; A6402 ×2 ==

== ENCOUNTER 2016-11-25 10:00 | Outpatient (CLI) | payer OTHER, MEDICARE | END 2016-11-25 23:59 | disposition home or self-care (01) | LOC: WOU 10:00 | PROVIDERS: ATTEND Podiatrist Foot & Ankle Surgery | DX: L89.624 Pressure ulcer of left heel, stage 4 (principal); M20.5X9 Other deformities of toe(s) (acquired), unspecified foot; Z87.891 Personal history of nicotine dependence; M86.372 Chronic multifocal osteomyelitis, left ankle and foot; K50.018 Crohn's disease of small intestine with other complication; G62.9 Polyneuropathy, unspecified | CPT/HCPCS: 11042; 87070-TC; 87186-TC; A6209; A6402; G0463 ==

== ENCOUNTER 2016-12-04 09:46 | Outpatient (CLI) | payer OTHER, MEDICARE | END 2016-12-04 23:59 | disposition home health service (06) | LOC: WOU 09:46 | PROVIDERS: ATTEND Podiatrist Foot & Ankle Surgery | DX: L89.624 Pressure ulcer of left heel, stage 4 (principal); L89.891 Pressure ulcer of other site, stage 1; M20.5X9 Other deformities of toe(s) (acquired), unspecified foot; M86.672 Other chronic osteomyelitis, left ankle and foot; B35.1 Tinea unguium | CPT/HCPCS: 11042; A6209; A6402 ==

== ENCOUNTER 2016-12-11 10:08 | Outpatient (CLI) | payer OTHER, MEDICARE | END 2016-12-11 23:59 | disposition home health service (06) | LOC: WOU 10:08 | PROVIDERS: ATTEND Podiatrist Foot & Ankle Surgery | DX: L89.624 Pressure ulcer of left heel, stage 4 (principal); M86.372 Chronic multifocal osteomyelitis, left ankle and foot; G62.9 Polyneuropathy, unspecified; M20.5X9 Other deformities of toe(s) (acquired), unspecified foot; B35.1 Tinea unguium; L84 Corns and callosities; R26.9 Unspecified abnormalities of gait and mobility; S91.205A Unspecified open wound of left lesser toe(s) with damage to nail, initial encounter; X58.XXXA Exposure to other specified factors, initial encounter; Y92.89 Other specified places as the place of occurrence of the external cause; K50.018 Crohn's disease of small intestine with other complication; D61.818 Other pancytopenia | CPT/HCPCS: 11042; A6207; A6209 ×2; A6402 ==

== ENCOUNTER 2016-12-18 09:59 | Outpatient (CLI) | payer OTHER, MEDICARE | END 2016-12-18 23:59 | disposition home health service (06) | LOC: WOU 09:59 | PROVIDERS: ATTEND Podiatrist Foot & Ankle Surgery | DX: L89.624 Pressure ulcer of left heel, stage 4 (principal); M86.372 Chronic multifocal osteomyelitis, left ankle and foot; R53.1 Weakness | CPT/HCPCS: 11043; 87070; 87075; 87077; 87186 ×2; A6209; A6402 ×2 ==

== ENCOUNTER 2016-12-25 08:12 | Outpatient (CLI) | payer OTHER, MEDICARE | END 2016-12-25 23:59 | disposition home health service (06) | LOC: WOU 08:12 | PROVIDERS: ATTEND Podiatrist Foot & Ankle Surgery | DX: L89.624 Pressure ulcer of left heel, stage 4 (principal); L89.894 Pressure ulcer of other site, stage 4; L03.031 Cellulitis of right toe; M20.5X2 Other deformities of toe(s) (acquired), left foot; M20.5X1 Other deformities of toe(s) (acquired), right foot; R26.9 Unspecified abnormalities of gait and mobility; L60.0 Ingrowing nail; B95.2 Enterococcus as the cause of diseases classified elsewhere; B95.7 Other staphylococcus as the cause of diseases classified elsewhere; M86.8X7 Other osteomyelitis, ankle and foot | CPT/HCPCS: 11043; 11730; 87070-TC; 87186-TC; A6209; A6402; J3490 ==

== ENCOUNTER 2016-12-28 08:20 | Outpatient (CLI) | payer OTHER, MEDICARE ==
[2016-12-28 08:56] LABS: BASOPHILS % (AUTO) 0.7 % (0.0-2.0); EOSINOPHILS # (AUTO) 0.1 /CMM (0.0-0.7); EOSINOPHILS % (AUTO) 5.1 % (0.0-6.0); HEMATOCRIT 37 % (39-51); HEMOGLOBIN 12.8 g/dL (13.5-17.5); LYMPHOCYTES # (AUTO) 0.7 /CMM (0.8-4.8); LYMPHOCYTES % (AUTO) 23.8 % (20.0-44.0); MEAN CORPUSCULAR HEMOGLOBIN 33 PG (26.0-33.0); MEAN CORPUSCULAR HGB CONC 35 g/dl (31.0-36.0); MEAN CORPUSCULAR VOLUME 95 fL (80-96); MONOCYTES # (AUTO) 0.5 /CMM (0.1-1.30); MONOCYTES % (AUTO) 17.1 % (2.0-12.0); NEUTROPHILS # (AUTO) 1.5 /CMM (1.8-8.9); NEUTROPHILS % (AUTO) 53.3 % (43.0-81.0); PLATELET COUNT (AUTO) 153 /CMM (150-450); RDW COEFFICIENT OF VARIATION 15.5 (11.5-15.0); RED BLOOD CELL COUNT(AUTO) 3.83 MIL/uL (4.5-6.0); WHITE BLOOD COUNT (AUTO) 2.8 K/uL (4.3-11.0)
[2016-12-28 08:58] LABS: C-REACTIVE PROTEIN 0.4 mg/dL (0.0-0.9)
[2016-12-28 09:06] LABS: ALBUMIN 3.2 g/dL (3.4-5.0); BILIRUBIN,TOTAL 0.5 mg/dL (0.2-1.0); CALCIUM, SERUM 8.3 mg/dL (8.5-10.1); CREATININE 0.8 mg/dL (0.6-1.3); POTASSIUM 4.1 mmol/L (3.5-5.1); TOTAL PROTEIN, SERUM 7.9 g/dL (6.4-8.2)
[2016-12-28 10:41] LABS: EOSINOPHILS % (MANUAL) 5 % (0-4); LYMPHOCYTES % (MANUAL) 26 % (16-48); MONOCYTES % (MANUAL) 11 % (0-11.0); NEUTROPHILS % (MANUAL) 58 (42-76)
== END 2016-12-28 23:59 | disposition home or self-care (01) ==
LOC: LAB 08:20
PROVIDERS: ATTEND Podiatrist Foot & Ankle Surgery
DX: M86.8X7 Other osteomyelitis, ankle and foot (principal); R79.89 Other specified abnormal findings of blood chemistry
CPT/HCPCS: 36415; 80053-TC; 85025-TC; 85652-TC; 86140-TC

== ENCOUNTER 2016-12-30 08:00 | Outpatient (CLI) | payer OTHER, MEDICARE | END 2016-12-30 23:59 | disposition home health service (06) | LOC: WOU 08:00 | PROVIDERS: ATTEND Podiatrist Foot & Ankle Surgery | DX: L89.624 Pressure ulcer of left heel, stage 4 (principal); L89.894 Pressure ulcer of other site, stage 4; L89.893 Pressure ulcer of other site, stage 3; L60.0 Ingrowing nail; M86.8X7 Other osteomyelitis, ankle and foot; M20.5X2 Other deformities of toe(s) (acquired), left foot; L03.032 Cellulitis of left toe | CPT/HCPCS: 11042; 11045; A6209; A6253; A6402 ==

== ENCOUNTER 2016-12-31 08:51 | Outpatient (CLI) | payer OTHER, MEDICARE | END 2016-12-31 23:59 | disposition home or self-care (01) | LOC: MRI 08:51 | PROVIDERS: ATTEND Podiatrist Foot & Ankle Surgery | DX: M25.475 Effusion, left foot (principal); L97.421 Non-pressure chronic ulcer of left heel and midfoot limited to breakdown of skin; M19.072 Primary osteoarthritis, left ankle and foot; M89.8X7 Other specified disorders of bone, ankle and foot; R60.0 Localized edema | CPT/HCPCS: 73718-TC ==

== ENCOUNTER 2017-01-08 08:00 | Outpatient (CLI) | payer OTHER, MEDICARE | END 2017-01-08 23:59 | disposition home health service (06) | LOC: WOU 08:00 | PROVIDERS: ATTEND Podiatrist Foot & Ankle Surgery | DX: L89.624 Pressure ulcer of left heel, stage 4 (principal); L89.894 Pressure ulcer of other site, stage 4; G60.9 Hereditary and idiopathic neuropathy, unspecified; M86.8X7 Other osteomyelitis, ankle and foot; R26.9 Unspecified abnormalities of gait and mobility; M20.5X2 Other deformities of toe(s) (acquired), left foot; M20.5X1 Other deformities of toe(s) (acquired), right foot | CPT/HCPCS: 11043; 11046; A6197; A6253; A6402; A6452 ==

== ENCOUNTER 2017-01-10 08:34 | Inpatient (IN) | payer OTHER, MEDICARE ==
[~2017-01-10] VITALS: Ht 182.9 cm; Wt 99.3 kg
--- NOTE | 2017-01-10 08:50 | NUR ---
PRESENTS SELF TO ED DT LEFT FOOT OPEN WOUND-- SENT HERE BY MD TERRELL FOR ADMISSION. PT IS AAO4. APPEARS IN NO APPARENT DISTRESS. RESPIRATION EVEN AND UNLABORED. VS S
[2017-01-10] MEDS ORDERED: PIPERACILLIN /TAZOBACTAM 3.375 G in IV D5W 50 ML IV ONE (09:00)
[2017-01-10] MEDS ORDERED: LEVO500T15 PO (09:10)
[2017-01-10] MEDS ORDERED: HYDR25TA4 PO (09:10)
[2017-01-10 09:14] LABS: BASOPHILS % (AUTO) 0.5 % (0.0-2.0); EOSINOPHILS # (AUTO) 0.3 /CMM (0.0-0.7); EOSINOPHILS % (AUTO) 7.8 % (0.0-6.0); HEMATOCRIT 38 % (39-51); HEMOGLOBIN 12.9 g/dL (13.5-17.5); LYMPHOCYTES # (AUTO) 0.7 /CMM (0.8-4.8); LYMPHOCYTES % (AUTO) 21.5 % (20.0-44.0); MEAN CORPUSCULAR HEMOGLOBIN 33 PG (26.0-33.0); MEAN CORPUSCULAR HGB CONC 34 g/dl (31.0-36.0); MEAN CORPUSCULAR VOLUME 97 fL (80-96); MONOCYTES # (AUTO) 0.6 /CMM (0.1-1.30); MONOCYTES % (AUTO) 17.9 % (2.0-12.0); NEUTROPHILS # (AUTO) 1.7 /CMM (1.8-8.9); NEUTROPHILS % (AUTO) 52.3 % (43.0-81.0); PLATELET COUNT (AUTO) 139 /CMM (150-450); RDW COEFFICIENT OF VARIATION 14.5 (11.5-15.0); RED BLOOD CELL COUNT(AUTO) 3.88 MIL/uL (4.5-6.0); WHITE BLOOD COUNT (AUTO) 3.2 K/uL (4.3-11.0)
[2017-01-10 09:28] LABS: CALCIUM, SERUM 8.2 mg/dL (8.5-10.1); CREATININE 0.8 mg/dL (0.6-1.3); POTASSIUM 3.7 mmol/L (3.5-5.1)
[2017-01-10 09:31] LABS: INR 1.11 (0.87-1.13); PROTHROMBIN TIME 11.6 SECS (9.5-12.7)
[2017-01-10 09:32] LABS: EOSINOPHILS % (MANUAL) 9 % (0-4); LYMPHOCYTES % (MANUAL) 16 % (16-48); MONOCYTES % (MANUAL) 14 % (0-11.0); NEUTROPHILS % (MANUAL) 61 (42-76)
--- NOTE | 2017-01-10 11:40 | NUR ---
MS RN OPENING NOTES RECEIVED PT FROM ER NURSE IN STABLE CONDITION. PT WAS GIVEN ZOSYN IN THE ER AND WILL BE ADMITTED UNDER DR. NANCE. HE IS A/O X4. NO SOB OR SIGNS OF DISTRESS NOTED. BREATHING IS EVEN AND UNLABORED. ULCER NOTED ON LEFT HEEL, CURRENTLY WRAPPED IN KERLIX BUT SOILED. WILL CHANGE DRESSING. HE DENIES ANY PAIN AT THIS TIME. IV PRESENT ON RIGHT FOREARM 20G. IV IS PATENT AND INTACT. NO REDNESS OR SIGNS OF INFILTRATION NOTED. PT WAS ORIENTED TO THE ROOM AND INSTRUCTED TO CALL FOR ASSISTANCE. HE VERBALIZED UNDERSTANDING OF INSTRUCTIONS. BED N LOW LOCKED POSITION, SIDE RAILS UP X2, CALL LIGHT WITHIN REACH. WILL CONTINUE TO MONITOR
[2017-01-10 12:00] VITALS: BP 128/70
[2017-01-10] MEDS ORDERED: ACETAMINOPHEN 325 MG TABLET PO PRN (12:00)
[2017-01-10] MEDS ORDERED: VANCOMYCIN 1 GM in IV D5W 250 ML IV ONE (12:00)
[2017-01-10] MEDS ORDERED: METOPROLOL TARTRATE 25 MG TABLET PO ONE (12:00)
[2017-01-10 12:30] VITALS: BP 128/71
[2017-01-10] MEDS ORDERED: FEE PK DOSING 1 MIN EA MC ONE (12:36)
[2017-01-10 12:41] LABS: IRON, SERUM 127 ug/dl (50-175); TOTAL IRON BINDING CAPACITY 313 ug/dl (250-450)
[2017-01-10 13:07] LABS: ALBUMIN 3.1 g/dL (3.4-5.0); BILIRUBIN,DIRECT 0.4 mg/dL (0.0-0.2); BILIRUBIN,TOTAL 0.9 mg/dL (0.2-1.0); CALCIUM, SERUM 8.4 mg/dL (8.5-10.1); CREATININE 0.8 mg/dL (0.6-1.3); POTASSIUM 4.4 mmol/L (3.5-5.1); TOTAL PROTEIN, SERUM 7.5 g/dL (6.4-8.2)
[2017-01-10] MEDS: MEROPENEM 1 G in IV NS 0.9% 100 ML IV SCH ×2 (13:58→20:34)
[2017-01-10] MEDS: IV NS 0.9% 1,000 ML IV PRN (13:59)
[2017-01-10] MEDS: VANCOMYCIN 1 GM in IV D5W 250 ML IV SCH (14:58)
[2017-01-10] MEDS: MORPHINE SULFATE INJ 2 MG/ML DISP.SYRIN IV PRN ×2 (15:42→20:42)
[2017-01-10 16:00] VITALS: BP 154/71
--- NOTE | 2017-01-10 18:06 | NUR ---
MS RN CLOSING NOTES PT REMAINS STABLE SINCE TIME OF ADMISSION. ALL NEEDS ANTICIPATED FOR AND MET. ALL DUE MEDS GIVEN. ALL SAFETY MEASURES IN PLACE. DRESSING CHANGED, DRY, AND INTACT. NS INFUSION RUNNING AT 75ML/HR. PT TOLERATING INFUSION WELL. NO REDNESS OR SIGNS OF INFILTRATION NOTED TO SITE. WILL ENDORSE TO NIGHTSHIFT NURSE FOR KEV
--- NOTE | 2017-01-10 19:45 | NUR ---
MS RN NOTE RECEIVED PATIENT FROM RN FOR KEV, PATIENT IS ALERT AND ORIENTEDX3, DENIES RESPIRATORY DISTRESS AND COMPLAINS OF MILD PAIN ON HIS FEET, DRESSINGS ARE COVERED AT THIS TIME. IV ON RIGHT FA IS PATENT AND INTACT, FLUID IS RUNNING. SRX2, BED IN LOW POSITION, CALL LIGHT WITHIN REACH, WILL CONTINUE TO MONITOR PATIENT.
[2017-01-10 19:51] VITALS: BP 133/62
--- NOTE | 2017-01-10 20:45 | NUR ---
MS RN NOTE PATIENT COMPLAINS OF PAIN ON HIS FEET DUE TO WOUNDS 11/05, MORPHINE 2MG IVP GIVEN PER PT'S REQUEST. WILL MONITOR EFFECTIVENESS.
[2017-01-11] MEDS: VANCOMYCIN 1 GM in IV D5W 250 ML IV SCH ×2 (00:32→13:13)
[2017-01-11] MEDS: MEROPENEM 1 G in IV NS 0.9% 100 ML IV SCH ×2 (05:01→11:53)
[2017-01-11] MEDS: IV NS 0.9% 1,000 ML IV PRN ×2 (05:14→20:48)
[2017-01-11 06:21] VITALS: BP 136/71
[2017-01-11 06:30] LABS: EOSINOPHILS # (AUTO) 0.2 /CMM (0.0-0.7); EOSINOPHILS % (AUTO) 11.2 % (0.0-6.0); HEMATOCRIT 37 % (39-51); HEMOGLOBIN 12.9 g/dL (13.5-17.5); LYMPHOCYTES # (AUTO) 0.6 /CMM (0.8-4.8); LYMPHOCYTES % (AUTO) 29.5 % (20.0-44.0); MEAN CORPUSCULAR HEMOGLOBIN 34 PG (26.0-33.0); MEAN CORPUSCULAR HGB CONC 35 g/dl (31.0-36.0); MEAN CORPUSCULAR VOLUME 96 fL (80-96); MONOCYTES # (AUTO) 0.4 /CMM (0.1-1.30); MONOCYTES % (AUTO) 18.8 % (2.0-12.0); NEUTROPHILS # (AUTO) 0.8 /CMM (1.8-8.9); NEUTROPHILS % (AUTO) 39.5 % (43.0-81.0); PLATELET COUNT (AUTO) 107 /CMM (150-450); RDW COEFFICIENT OF VARIATION 14.6 (11.5-15.0); RED BLOOD CELL COUNT(AUTO) 3.82 MIL/uL (4.5-6.0); WHITE BLOOD COUNT (AUTO) 2.1 K/uL (4.3-11.0)
[2017-01-11 06:49] LABS: APPEARANCE,URINE CLEAR (CLEAR); BILIRUBIN,URINE NEGATIVE (NEGATIVE); BLOOD, URINE NEGATIVE Ery/uL (NEGATIVE); COLOR,URINE YELLOW (YELLOW); KETONES,URINE NEGATIVE (NEGATIVE); LEUKOCYTE ESTERASE ,URINE NEGATIVE (NEGATIVE); NITRITE, URINE NEGATIVE (NEGATIVE); PROTEIN,URINE NEGATIVE (NEGATIVE); UGLUCOSE NEGATIVE (NEGATIVE); UROBILINOGEN,URINE 0.2 EU/dL (0.2)
--- NOTE | 2017-01-11 06:49 | NUR ---
MS RN NOTE PATIENT IS RESTING IN BED COMFORTABLY, DENIES RESPIRATORY DISTRESS OR PAIN AT THIS TIME. IV ON RIGHT FA IS PATENT AND INTACT, FLUID IS RUNNING. NO ACUTE EVENT NOTED THROUGHOUT THE SHIFT, WILL ENDORSE TO DAY SHIFT NURSE FOR KEV.
[2017-01-11 06:57] LABS: INR 1.15 (0.87-1.13)
[2017-01-11 07:04] LABS: ALBUMIN 2.8 g/dL (3.4-5.0); CALCIUM, SERUM 7.8 mg/dL (8.5-10.1); CREATININE 0.9 mg/dL (0.6-1.3); POTASSIUM 3.9 mmol/L (3.5-5.1); TOTAL PROTEIN, SERUM 6.9 g/dL (6.4-8.2)
--- NOTE | 2017-01-11 07:20 | NUR ---
ms rn initial notes Received patient in bed, awake, head of bed elevated, no SOB or distress noted, on room air and tolerated well. IV intact and patent with IVF infusing well. No complaint of pain or discomfort noted. Dressing intact on the left foot. Kept patient clean and comfortable in bed, call light with in patient reach, will continue to monitor accordingly.
[2017-01-11 08:00] VITALS: BP 127/72
[2017-01-11] MEDS: PANTOPRAZOLE 40 MG VIAL IV SCH (08:25)
[2017-01-11 09:38] LABS: CREATINE KINASE MB 0.7 ng/mL (0-3.6); FERRITIN 62 ng/mL (8-388)
[2017-01-11 11:33] LABS: EOSINOPHILS % (MANUAL) 4 % (0-4); LYMPHOCYTES % (MANUAL) 25 % (16-48); MONOCYTES % (MANUAL) 13 % (0-11.0); NEUTROPHILS % (MANUAL) 58 (42-76)
--- NOTE | 2017-01-11 11:51 | NUR ---
WOUND CARE CONSULT: PT REFUSED FULL SKIN ASSESSMENT. PT NOTED TO HAVE FOOT ULCERS INCLUDING LEFT HEEL, LEFT GREAT TOE AND RT 3RD TOE, PRESENT ON ADMISSION. PT TO BE SEEN BY DR JUNE. DEFER TO DPM. PT IS CONTINENT AND AMBULATORY. WILL SEE PRN. IN AGREEMENT WITH PLAN OF CARE. CURRENT NELLY SCORE IS 17.
[2017-01-11 11:56] LABS: RETICULOCYTE COUNT 1.8 % (0.6-2.5)
[2017-01-11] MEDS: MORPHINE SULFATE INJ 2 MG/ML DISP.SYRIN IV PRN ×2 (11:58→20:47)
[2017-01-11] MEDS ORDERED: HYDROGEL DRESSING 90 GM TUBE TP PRN (13:00)
[2017-01-11] MEDS: HYDROGEL DRESSING 90 GM TUBE TP SCH (13:14)
[2017-01-11 16:00] VITALS: BP 136/71
[2017-01-11] MEDS ORDERED: TBO-FILGRASTIM 480 MCG/0.8 ML ML SQ SCH (19:00)
--- NOTE | 2017-01-11 19:09 | NUR ---
ms rn closing notes All needs provided, attended, and anticipated. Kept patient clean and comfortable in bed, call light with in patient reach,endorsed to next shift RN to continue care.
--- NOTE | 2017-01-11 19:15 | NUR ---
MS/RN NOTES RECEIVED PT. LYING IN BED. AWAKE, ALERT AND ORIENTED X4. BREATHING EVEN AND UNLABORED ON ROOM AIR. NO SOB, RESPIRATORY DISTRESS OR COMPLAINTS OF PAIN NOTED AT THIS TIME. PT. WITH RIGHT FOREARM 20 GAUGE PERIPHERAL IV PRESENT, PATENT AND INTACT ADMINISTERING TO PT. NS @ 75 ML/HR. PT. WITH LEFT FOOT DRESSING PRESENT, CLEAN, DRY AND INTACT. NO BLEEDING OR DRAINAGE NOTED. PER DAYSHIFT NURSE PT. IS GOING FOR WOUND DEBRIDEMENT TOMORROW AND WILL BE NPO AFTER MIDNIGHT. EDUCATED PT. ON PLAN OF CARE. PT. VERBALIZED UNDERSTANDING. BED LOCKED AND IN LOWEST POSITION, SIDE RAILS UP X2, CALL LIGHT WITHIN REACH, WILL CONTINUE TO MONITOR.
[2017-01-11 20:00] VITALS: BP 136/70
[2017-01-12] MEDS: VANCOMYCIN 1 GM in IV D5W 250 ML IV SCH ×2 (01:41→14:36)
[2017-01-12] MEDS: MORPHINE SULFATE INJ 2 MG/ML DISP.SYRIN IV PRN ×4 (02:53→20:39)
--- NOTE | 2017-01-12 06:40 | NUR ---
MS/RN NOTES PT. IS LYING IN BED RESTING. BREATHING EVEN AND UNLABORED ON ROOM AIR. NO SOB, RESPIRATORY DISTRESS OR COMPLAINTS OF PAIN NOTED AT THIS TIME. PT. WITH RIGHT FOREARM 20 GAUGE PERIPHERAL IV PRESENT, PATENT AND INTACT ADMINISTERING TO PT. NS @ 75 ML/HR. PT. HAS BEEN NPO SINCE MIDNIGHT PENDING LEFT FOOT WOUND DEBRIDEMENT TODAY. ALL PT. NEEDS MET. BED LOCKED AND IN LOWEST POSITION, SIDE RAILS UP X2, CALL LIGHT WITHIN REACH, WILL ENDORSE TO DAYSHIFT NURSE FOR CONTINUITY OF CARE.
[2017-01-12 07:17] LABS: BASOPHILS % (AUTO) 0.2 % (0.0-2.0); EOSINOPHILS # (AUTO) 0.3 /CMM (0.0-0.7); EOSINOPHILS % (AUTO) 4.6 % (0.0-6.0); HEMATOCRIT 37 % (39-51); HEMOGLOBIN 12.7 g/dL (13.5-17.5); LYMPHOCYTES # (AUTO) 0.5 /CMM (0.8-4.8); LYMPHOCYTES % (AUTO) 8.2 % (20.0-44.0); MEAN CORPUSCULAR HEMOGLOBIN 33 PG (26.0-33.0); MEAN CORPUSCULAR HGB CONC 34 g/dl (31.0-36.0); MEAN CORPUSCULAR VOLUME 96 fL (80-96); MONOCYTES # (AUTO) 0.6 /CMM (0.1-1.30); NEUTROPHILS # (AUTO) 4.4 /CMM (1.8-8.9); PLATELET COUNT (AUTO) 105 /CMM (150-450); RDW COEFFICIENT OF VARIATION 14.3 (11.5-15.0); RED BLOOD CELL COUNT(AUTO) 3.83 MIL/uL (4.5-6.0); WHITE BLOOD COUNT (AUTO) 5.9 K/uL (4.3-11.0)
[2017-01-12 07:34] LABS: CALCIUM, SERUM 8.1 mg/dL (8.5-10.1); CREATININE 0.8 mg/dL (0.6-1.3); MAGNESIUM 1.7 mg/dL (1.8-2.4); PHOSPHORUS 3.8 mg/dL (2.5-4.9); POTASSIUM 3.7 mmol/L (3.5-5.1)
[2017-01-12 07:37] LABS: THYROID STIMULATING HORMONE 1.779 uIU/mL (0.358-3.74)
[2017-01-12 08:00] VITALS: BP 132/68
--- NOTE | 2017-01-12 08:00 | NUR ---
RN NOTES RECEIVED PATIENT IN THE BED, A/O X4, NO RESPIRATORY DISTRESS, IV LINE ON RIGHT FOREARM, INTACT, NO INFILTRATION, V/S TAKEN STABLE, PATIENT MED COMPLIANT, ENCOURAGED TO INCREASE FLUID INTAKE, ALSO EXPRESS FEELINGS AND CONCERNS. PATIENT C/O PAIN ON LEFT HEEL ON PAIN SCALE OF 3 REFUSED PAIN MEDICATION AT THIS TIME, CALL LIGHT WITHIN TO REACH, PATIENT USING URINAL, SAFETY PRECAUTION MAINTAINED ALL THE TIME.
--- NOTE | 2017-01-12 08:10 | NUR ---
RN NOTES CALLED DR. FERRERA TO CLARIFY TIME OF PROCEDURE PER DR. FERRERA PATIENT TO HAVE PROCEDURE TOMORROW 01/13/17 AT 0730 PATIENT TO BE NPO POST MIDNIGHT ON 01/12/17 WILL CONTINUE TO MONITOR AT THIS TIME AND INFORM PATIENT
[2017-01-12] MEDS: PANTOPRAZOLE 40 MG VIAL IV SCH (09:20)
--- NOTE | 2017-01-12 09:23 | NUR ---
RN NOTES ADMINISTERED MORPHINE 2MG/ML LEFT HEEL PAIN 7/10 PER SLIDING SCALE, V/S TAKE BP-132/68, P-77, CALL LIGHT WITHIN TO REACH, SAFETY PRECAUTION MAINTAINED ALL THE TIME.
[2017-01-12] MEDS: HYDROGEL DRESSING 90 GM TUBE TP SCH (10:35)
[2017-01-12] MEDS: Magnesium 1GM/D5W 100ML PREMIX 100 ML IV SCH ×2 (11:35→12:13)
--- NOTE | 2017-01-12 14:45 | NUR ---
RN NOTES PATIENT IN THE BED READING, NO ACUTE DISTRESS, C/O PAIN BILATERAL LOWER LEGS PAIN .ADMINISTERED MORPHINE 2 MG/ML IV PUSH PAIN SCALE OF 7/10 PER PATIENT REQUEST, V/S TAKE BP- 126/70, P-76, CONTINUED MONITORING. ENCOURAGED TO INCREASE FLUID INTAKE. CALL LIGHT WITHIN TO REACH, SAFETY PRECAUTION MAINTAINED ALL THE TIME.
[2017-01-12 16:00] VITALS: BP 126/70
--- NOTE | 2017-01-12 19:00 | NUR ---
RN NOTES PATIENT IN THE BED WATCHING TV, MEDICATION WERE ADMINISTERED FOR PAIN EFFECTIVE, DRESSING CHANGED BY WOUND MD, V/S STABLE, MED COMPLIANT. INFUSING IV ON RIGHT FOREARM, INTACT, NO RESPIRATORY DISTRESS, CALL LIGHT NEAR TO REACH, SAFETY PRECAUTION MAINTAINED ALL THE TIME. REPORT GIVEN ONCOMING NURSE FOR CONTINUATION OF CARE.
--- NOTE | 2017-01-12 19:15 | NUR ---
MS RN OPENING NOTES: RECEIVED PT AND IS IN BED ASLEEP AT THIS TIME. NO SOB NOTED AT THIS TIME. NO S/S OF DISTRESS NOTED AT THIS TIME. PT HAS R FOREARM #22G AND IS BEING INFUSED WITH NS AT 75ML/HR. CALL LIGHT WITHIN PT'S REACH. BED ALARM ACTIVATED. WALKER AND CRUTCHES AT BEDSIDE. BED KEPT IN LOW, LOCKED POSITION, AND SIDE RAILS X 2 UP. WILL CONTINUE TO MONITOR PT.
[2017-01-12 20:00] VITALS: BP 146/96
[2017-01-12 20:24] VITALS: BP 146/96
[2017-01-12] MEDS: MEROPENEM 500 MG in IV NS 0.9% 50 ML IV SCH (20:36)
--- NOTE | 2017-01-12 20:39 | NUR ---
MS RN NOTES: PT COMPLAINING OF 8/10 B FEET AND LOWER BACK PAIN. PT WAS ADMINISTERED MORPHINE 2MG VIA IV. PT'S BP WAS 146/96 HR 79. WILL CONTINUE TO MONITOR PT.
[2017-01-12] MEDS: IV NS 0.9% 1,000 ML IV PRN (21:29)
--- NOTE | 2017-01-12 22:45 | NUR ---
MS RN CLOSING NOTES: ALL NEEDS WERE ATTENDED AND ANTICIPATED FOR. PT IS ASLEEP AT THIS TIME. BLOOD TRANSFUSION CONSENT OBTAINED. NO SOB NOTED AT THIS TIME. NO S/S OF DISTRESS NOTED AT THIS TIME. PT HAS R FOREARM #22G AND IS BEING INFUSED WITH NS AT 75ML/HR. CALL LIGHT WITHIN PT'S REACH. WALKER AND CRUTCHES AT BEDSIDE. BED KEPT IN LOW, LOCKED POSITION, AND SIDE RAILS X 2 UP. ENDORSED TO YUNIOR GREEN, FOR KEV.
[2017-01-13] VITALS (10 sets, daily range): BP systolic 127–158; BP diastolic 63–87
[2017-01-13] MEDS: VANCOMYCIN 1.25 GM in IV D5W 500 ML IV SCH ×3 (00:34→20:26)
--- NOTE | 2017-01-13 02:24 | NUR ---
MS RN OPENING NOTES PT RECEIVED FROM YUNIOR PUENTE PT IN BED ASLEEP NO SOB NOTED AT THIS TIME. NO S/S OF DISTRESS NOTED AT THIS TIME. INFUSING NS AT 75ML/HR. IV SITE PATENT AND FLUSHED. CALL LIGHT WITHIN EASY TO REACH. BED KEPT IN LOW, LOCKED POSITION, AND SIDE RAILS X 2 UP. WILL CONTINUE TO MONITOR. Addendum: 01/13/17 at 0226 by NORMA RAY RN RECEIEVED AT 01/12/2017 AT 9697
[2017-01-13] MEDS: MEROPENEM 500 MG in IV NS 0.9% 50 ML IV SCH ×3 (05:10→20:00)
--- NOTE | 2017-01-13 06:23 | NUR ---
MS RN CLOSING NOTES PATIENT COMFORTABLY ASLEEP AND EASILY AWAKEN. HEAD OF BED ELEVATED FOR BETTER LUNG EXPANSION TOLERATING ROOM AIR 96% IV SITE NO S/S OF INFILTRATED PATENT AND FLUSHED, MAINTAINS NPO AT MIDNIGHT ORDERED. ON ATB WITH NO A/R NOTED. RESPIRATIONS EVEN AND UNLABORED. NO S/S OF ACUTE DISTRESS, AFEBRILE. NURSING CARE RENDERED, NEEDS ATTENDED AND ANTICIPATED, KEPT CLEAN AND DRY AND COMFORTABLE, GOOD SKIN CARE PROVIDED. FREQUENT VISUAL CHECK DONE FOR SAFETY EVERY 2 HOURS. SAFE HAZARD FREE ENVIRONMENT PROVIDED. CALL LIGHT WITHIN EASY TO REACH, ON LOW BED AT ALL TIMES TO ENSURE SAFETY, WILL ENDORSE TO THE NEXT SHIFT CONTINUE PLAN OF CARE. NO COMPLAINS OF PAIN
[2017-01-13 07:04] LABS: BASOPHILS % (AUTO) 0.5 % (0.0-2.0); EOSINOPHILS # (AUTO) 0.2 /CMM (0.0-0.7); EOSINOPHILS % (AUTO) 4.1 % (0.0-6.0); HEMATOCRIT 36 % (39-51); HEMOGLOBIN 12.5 g/dL (13.5-17.5); LYMPHOCYTES # (AUTO) 0.6 /CMM (0.8-4.8); LYMPHOCYTES % (AUTO) 11.7 % (20.0-44.0); MEAN CORPUSCULAR HEMOGLOBIN 34 PG (26.0-33.0); MEAN CORPUSCULAR HGB CONC 35 g/dl (31.0-36.0); MEAN CORPUSCULAR VOLUME 96 fL (80-96); MONOCYTES # (AUTO) 0.5 /CMM (0.1-1.30); MONOCYTES % (AUTO) 10.8 % (2.0-12.0); NEUTROPHILS # (AUTO) 3.6 /CMM (1.8-8.9); NEUTROPHILS % (AUTO) 72.9 % (43.0-81.0); PLATELET COUNT (AUTO) 92 /CMM (150-450); RDW COEFFICIENT OF VARIATION 14.4 (11.5-15.0); RED BLOOD CELL COUNT(AUTO) 3.74 MIL/uL (4.5-6.0)
--- NOTE | 2017-01-13 07:05 | NUR ---
OR NURSE CITRIX ARCHITECT THE PATIENT FROM ROOM 316-1 TO OR SURGERY PT IN STABLE CONDITION VS WNL. WILL ENDORSE TO THE NEXT SHIFT
[2017-01-13 07:18] LABS: CALCIUM, SERUM 8.1 mg/dL (8.5-10.1); CREATININE 0.7 mg/dL (0.6-1.3); MAGNESIUM 1.7 mg/dL (1.8-2.4); POTASSIUM 3.5 mmol/L (3.5-5.1)
[2017-01-13] MEDS ORDERED: LIDOCAINE 2% 50 ML MDV IJ ONE (07:23)
[2017-01-13] MEDS ORDERED: FENTANYL PF 100MCG/2ML AMPUL ONE (07:27)
--- NOTE | 2017-01-13 07:31 | NUR ---
RN NOTES PATIENT IN THE SURGERY AT THIS TIME.
[2017-01-13] MEDS ORDERED: HYDROGEN PEROXIDE 480 ML BOTTLE ONE (07:49)
[2017-01-13] MEDS ORDERED: GELATIN SPONGE,ABSORBABLE 1 SPONGE SPONGE TP ONE (07:51)
--- NOTE | 2017-01-13 09:00 | NUR ---
RN NOTES PATIENT BACK FROM SURGERY AT THIS TIME, A/O X3/4, NO RESPIRATORY DISTRESS, NO SOB, V/S TAKEN BP-127/63, P-68, O2-95 ROOM AIR, R-18, T-97.9, NO ACUTE DISTRESS, MD ORDER KEEP LEFT LEG ELEVATED WITH PILLOW, ACTIVITY WITHOUT WEIGH BARRING EFFECTED LEG, BACK TO CARDIAC DIET, ORDER TAKEN AND CARRIED OUT, PATIENT HAS NO C/O PAIN AT THIS TIME, IV LINE ON RIGHT FOREARM NS 75 ML /HR, INTACT, CALL BROWN WITHIN TO REACH, BED ALARM ON, PATIENT USING URINAL, SAFETY PRECAUTION MAINTAINED ALL THE TIME.
[2017-01-13] MEDS: CYANOCOBALAMIN 500 MCG TABLET PO SCH (09:06)
[2017-01-13] MEDS: PANTOPRAZOLE 40 MG VIAL IV SCH (09:06)
[2017-01-13] MEDS: HYDROGEL DRESSING 90 GM TUBE TP SCH (09:07)
[2017-01-13] MEDS: MORPHINE SULFATE INJ 2 MG/ML DISP.SYRIN IV PRN ×2 (09:49→19:51)
--- NOTE | 2017-01-13 09:49 | NUR ---
RN NOTES ADMINISTERED MORPHINE 2 MG/ML IV PUSH PER PATIENT REQUEST PAIN LEVEL PER SLIDING SCALE 6/10, V/S TAKE BP 158/33, P-77, NO RESPIRATORY DISTRESS, PATIENT WATCHING TV, ADMINISTERED SOME CLEAR LIQUID, PATIENT TOLERATED WELL, NO ASPIRATION PRECAUTION, CALL LIGHT WITHIN THE PATIENT, SAFETY PRECAUTION MAINTAINED ALL THE TIME.
[2017-01-13 10:10] LABS: EOSINOPHILS % (MANUAL) 5 % (0-4); LYMPHOCYTES % (MANUAL) 11 % (16-48); MONOCYTES % (MANUAL) 11 % (0-11.0); NEUTROPHILS % (MANUAL) 73 (42-76)
[2017-01-13] MEDS: Magnesium 1GM/D5W 100ML PREMIX 100 ML IV SCH ×2 (10:58→12:18)
--- NOTE | 2017-01-13 12:07 | NUR ---
RN NOTES PATIENT IN THE ROOM EATING, MEDICATION WERE ADMINISTERED FOR PAIN EFFECTIVE, LEFT LEG KEEP ELEVATED WITH PILLOW, PATIENT USING URINAL, V/S STABLE, IV INFUSING ON RIGHT FOREARM, INTACT, CALL LIGHT WITHIN TO REACH, SAFETY PRECAUTION MAINTAINED ALL THE TIME.
--- NOTE | 2017-01-13 18:38 | NUR ---
RN NOTES PATIENT IN THE ROOM, NO ACUTE DISTRESS, NO RESPIRATORY DISTRESS, REFUSED PAIN AT THIS TIME, IV ON LEFT FOREARM, INTACT, NEEDS ATTENDED AND ANTICIPATED, PATIENT USING URINAL, CALL LIGHT WITHIN TO REACH, SAFETY PRECAUTION MAINTAINED ALL THE TIME. ENDORSED ONCOMING NURSE FOR CONTINUATION OF CARE.
--- NOTE | 2017-01-13 19:00 | NUR ---
MS RN OPENING NOTES: RECEIVED PT AND IS IN BED AWAKE WATCHING TELEVISION AT THIS TIME. PT IS A/OX4. NO SOB NOTED AT THIS TIME. NO S/S OF DISTRESS NOTED AT THIS TIME. PT HAS R FOREARM #22G AND IS CURRENTLY H/L. CALL LIGHT WITHIN PT'S REACH. URINAL AT REACH. WALKER AND CRUTCHES AT BEDSIDE. PT COMPLAINING OF 8/10 L FOOT PAIN. PT IN FORMED NO WEIGHT BEARING EXERCISE/ACTIVITY ON L FOOT.BED KEPT IN LOW, LOCKED POSITION, AND SIDE RAILS X 2 UP. WILL CONTINUE TO MONITOR PT.
--- NOTE | 2017-01-13 19:51 | NUR ---
MS RN NOTES: PT IS COMPLAINING OF 8/10 L FOOT PAIN. PT WAS ADMINISTERED MORPHINE 2MG VIA IV. PT'S PIER HAND WAS 145/75 HR 76. WILL CONTINUE TO MONITOR PT.
[2017-01-14] MEDS: MEROPENEM 500 MG in IV NS 0.9% 50 ML IV SCH ×3 (04:44→21:13)
--- NOTE | 2017-01-14 06:58 | NUR ---
MS RN CLOSING NOTES: ALL NEEDS WERE ATTENDED AND ANTICIPATED FOR. PT IS IN BED AWAKE AND WATCHING TELEVISION AT THIS TIME. PT IS A/OX4. NO SOB NOTED AT THIS TIME. NO S/S OF DISTRESS NOTED AT THIS TIME. PT HAS R FOREARM #22G AND IS CURRENTLY H/L. CALL LIGHT WITHIN PT'S REACH. URINAL AT REACH. WALKER AND CRUTCHES AT BEDSIDE. URINE COLLECTED THIS AM. BED KEPT IN LOW, LOCKED POSITION, AND SIDE RAILS X 2 UP. WILL ENDORSE TO AM NURSE FOR KEV.
[2017-01-14 07:36] LABS: CALCIUM, SERUM 8.1 mg/dL (8.5-10.1); CREATININE 0.8 mg/dL (0.6-1.3); MAGNESIUM 1.8 mg/dL (1.8-2.4); POTASSIUM 3.8 mmol/L (3.5-5.1)
[2017-01-14 08:00] VITALS: BP 146/69
--- NOTE | 2017-01-14 08:05 | NUR ---
MS RN OPENING NOTE PATIENT IS ALERT AND ORIENTED X4. NO PAIN AT THIS TIME. NO SOB OR DISTRESS NOTED. CALL LIGHT WITHIN REACH. SAFETY MEASURES IMPLEMENTED. ABLE TO COMMUNICATE NEEDS. IV ON RIGHT FOREARM INTACT AND PATENT NO REDNESS OR SWELLING NOTED. S/P LEFT FOOT DEBRIDEMENT. POSSIBLE DISCHARGE TODAY. [facility]. WILL CONTINUE TO MONITOR
[2017-01-14] MEDS: HYDROGEL DRESSING 90 GM TUBE TP SCH (09:09)
[2017-01-14] MEDS: CYANOCOBALAMIN 500 MCG TABLET PO SCH (09:09)
[2017-01-14] MEDS: PANTOPRAZOLE 40 MG VIAL IV SCH (09:09)
[2017-01-14] MEDS: VANCOMYCIN 1.25 GM in IV D5W 500 ML IV SCH ×2 (11:45→22:56)
[2017-01-14 16:00] VITALS: BP 155/84
[2017-01-14 16:31] LABS: URINE SODIUM, RANDOM 67 mmol/l (40-220)
[2017-01-14 16:45] LABS: OSMOLALITY,URINE 270 mOS/kg (340-1090)
[2017-01-14] MEDS: MORPHINE SULFATE INJ 2 MG/ML DISP.SYRIN IV PRN ×2 (17:16→21:29)
--- NOTE | 2017-01-14 18:37 | NUR ---
MS RN CLOSING NOTE PATIENT IS ALERT AND ORIENTED X4. NO PAIN AT THIS TIME. NO SOB OR DISTRESS NOTED. CALL LIGHT WITHIN REACH AT ALL TIMES. SAFETY MEASURES IMPLEMENTED. ABLE TO COMMUNICATE NEEDS. IV INTACT AND PATENT NO REDNESS OR SWELLING NOTED. NO IV FLUIDS RUNNING AT THIS TIME. AWAITING FOR MIDLINE TO BE INSERTED FOR PENITENTIARY ANTIBIOTICS. LEFT FOOT WOUND DRESSING INTACT. WILL ENDORSE TO DIGITAL ANALYTICS MANAGER FOR KEV
[2017-01-14 20:00] VITALS: BP 123/70
--- NOTE | 2017-01-15 07:15 | NUR ---
RN OPEN NOTES RECEIVED REPORT FROM BRAZING MACHINE TENDER NURSE. WILL CONTINUE TO MONITOR AND ASSESS PATIENT THROUGH OUT MY SHIFT
[2017-01-15 08:00] VITALS: BP 144/76
[2017-01-15] MEDS ORDERED: ASCORBIC ACID 500 MG TABLET PO SCH (09:00)
[2017-01-15] MEDS ORDERED: MULTIVITAMINS,THERAGRAN 1 UDTAB TABLET PO SCH (09:00)
[2017-01-15] MEDS ORDERED: PROSOURCE / PROSTAT (PYXIS) 30 ML UDC PO SCH (09:00)
--- NOTE | 2017-01-15 09:45 | NUR ---
NO THERAGRAN AT Fwd: Power. PHARMACY NOTIFIED OF THERAGRAN NEEDED.
[2017-01-15] MEDS: CYANOCOBALAMIN 500 MCG TABLET PO SCH (09:46)
[2017-01-15] MEDS: PANTOPRAZOLE 40 MG VIAL IV SCH (09:46)
[2017-01-15] MEDS: HYDROGEL DRESSING 90 GM TUBE TP SCH (09:46)
--- NOTE | 2017-01-15 10:25 | NUR ---
MIDLINE NURSE AT BEDSIDE
[2017-01-15 10:35] LABS: CALCIUM, SERUM 8.3 mg/dL (8.5-10.1); CARBON DIOXIDE 21 mmol/L (21-32); CHLORIDE 101 mmol/L (98-107); CREATININE 0.8 mg/dL (0.6-1.3); GLUCOSE 106 mg/dL (74-106); POTASSIUM 3.7 mmol/L (3.5-5.1); SODIUM SERUM 135 mmol/L (136-145); UREA NITROGEN, BLOOD 7 mg/dL (7-18)
--- NOTE | 2017-01-15 10:45 | NUR ---
MIDLINE INSERTED. 18G ON RIGHT UPPER ARM
[2017-01-15 10:56] LABS: WHITE BLOOD COUNT (AUTO) 2.7 K/uL (4.3-11.0)
[2017-01-15 10:57] LABS: HEMATOCRIT 37 % (39-51); MEAN CORPUSCULAR HEMOGLOBIN 33 PG (26.0-33.0); MEAN CORPUSCULAR HGB CONC 35 g/dl (31.0-36.0); MEAN CORPUSCULAR VOLUME 96 fL (80-96); NEUTROPHILS % (AUTO) 46.9 % (43.0-81.0); PLATELET COUNT (AUTO) 100 /CMM (150-450); RDW COEFFICIENT OF VARIATION 14.3 (11.5-15.0); RED BLOOD CELL COUNT(AUTO) 3.88 MIL/uL (4.5-6.0)
[2017-01-15 10:58] LABS: BASOPHILS % (AUTO) 0.6 % (0.0-2.0); EOSINOPHILS % (AUTO) 11.7 % (0.0-6.0); LYMPHOCYTES % (AUTO) 24.8 % (20.0-44.0)
[2017-01-15] MEDS: VANCOMYCIN 1.25 GM in IV D5W 500 ML IV SCH (11:18)
[2017-01-15 13:10] LABS: EOSINOPHILS % (MANUAL) 9 % (0-4); LYMPHOCYTES % (MANUAL) 26 % (16-48); MONOCYTES % (MANUAL) 7 % (0-11.0); NEUTROPHILS % (MANUAL) 58 (42-76)
[2017-01-15] MEDS: MORPHINE SULFATE INJ 2 MG/ML DISP.SYRIN IV PRN (13:11)
[2017-01-15] MEDS: MEROPENEM 500 MG in IV NS 0.9% 50 ML IV SCH (13:29)
[2017-01-15 13:31] LABS: TROPONIN I < 0.017 ng/mL (0.00-0.056)
--- NOTE | 2017-01-15 13:45 | NUR ---
PHYSICAL THERAPY AT BEDSIDE
[2017-01-15 16:00] VITALS: BP 135/70
--- NOTE | 2017-01-15 16:24 | NUR ---
DR JUNE CALLED IN TO NOTIFY THAT HE WILL COME SHORTLY TO APPLY THE CAST
--- NOTE | 2017-01-15 16:50 | NUR ---
DR JUNE AT BEDSIDE TO APPLY CAST
--- NOTE | 2017-01-15 17:10 | NUR ---
NAOMI OHARA AT BEDSIDE
[2017-01-15] MEDS ORDERED: ERTA1VIA2 IV (17:20)
[2017-01-15] MEDS ORDERED: LACT1CAP57 PO (17:20)
[2017-01-15] MEDS ORDERED: DAPT500V2 IV (17:20)
--- NOTE | 2017-01-15 17:40 | NUR ---
FIRE ALARM DISPATCHER NOTE PATIENT DISCHARGE'S ORDER RECEIVED AND CARRIED OUT. PATIENT WAS CLEARED BY PHYSICAL THERAPY, DR. JUNE, AND LEV SALGADO. PATIENT IS LEAVING AT A STABLE CONDITION. NO SIGNS AND SYMPTOMS OF DISTRESS. DENIED PAIN. ALL DISCHARGE INSTRUCTIONS EXPLAINED TO PATIENT AND PATIENT VERBALIZED UNDERSTANDING. PATIENT ADVISED TO START PROBIOTIC TWICE A DAY TILL ANTIBIOTIC COMPLETED. PATIENT IS GOING HOME WITH [facility]. [employer] [facility]: [employer] [phone] Y870. AND PHARMACY: [facility]. ALL PERSONAL BELONGING WITH PATIENT AT TIME OF DISCHARGE. BOTH PATIENT INSTRUCTION AND BELONGING LIST SIGNED BY PATIENT AND PLACED IN THE CHART. PATIENT IS LEAVING WITH A MIDLINE FOR ANTIBIOTIC ADMINISTRATION BY HOME HEALTH NURSE. ID BAND REMOVED. PATIENT ESC[facility]ED TO [facility] VIA A WHEELCHAIR ACCOMPANIED BY FILM WAXER. PATIENT TRANSPORTED HOME VIA A TAXI PROVIDED AND PAID BY PATIENT. Addendum: 01/15/17 at 1750 by DIXIE BATES RN PATIENT REFUSED INFLUENZA AND PNEUMONIA VACCINE. RISKS AND BENEFITS EXPLAINED TO PATIENT THREE TIMES AND PATIENT STILL REFUSED. EDUCATION MATERIAL GAVE TO PATIENT IN REGARDING TO THE VACCINES. Addendum: 01/15/17 at 1754 by DIXIE BATES RN PICTURES WERE TAKEN AND PLACED IN THE CHART
== END 2017-01-15 18:07 | disposition home health service (06) | DRG 478 ==
LOC: ER 08:35 → MED 12:16 → TELE 01-11 05:00 → MED 01-11 06:54
PROVIDERS: ADMIT Internal Medicine; ATTEND Internal Medicine
PROC: 0QBM0ZX Excision of Left Tarsal, Open Approach, Diagnostic (ICD-10-PCS; principal; 2017-01-13 07:42)
PROC: 0Y9N0ZZ Drainage of Left Foot, Open Approach (ICD-10-PCS; principal; 2017-01-13 07:42)
PROC: 05H533Z Insertion of Infusion Device into Right Subclavian Vein, Percutaneous Approach (ICD-10-PCS; 2017-01-15)
DX: M86.8X7 Other osteomyelitis, ankle and foot (principal); D61.818 Other pancytopenia; E44.1 Mild protein-calorie malnutrition; G62.9 Polyneuropathy, unspecified; E87.1 Hypo-osmolality and hyponatremia; K70.10 Alcoholic hepatitis without ascites; K50.90 Crohn's disease, unspecified, without complications; L03.116 Cellulitis of left lower limb; F10.988 Alcohol use, unspecified with other alcohol-induced disorder; K70.0 Alcoholic fatty liver; R16.2 Hepatomegaly with splenomegaly, not elsewhere classified; L97.529 Non-pressure chronic ulcer of other part of left foot with unspecified severity; D46.9 Myelodysplastic syndrome, unspecified; E78.5 Hyperlipidemia, unspecified; I10 Essential (primary) hypertension; Z79.899 Other long term (current) drug therapy; Z85.6 Personal history of leukemia; Z87.891 Personal history of nicotine dependence; D63.8 Anemia in other chronic diseases classified elsewhere; T50.2X5A Adverse effect of carbonic-anhydrase inhibitors, benzothiadiazides and other diuretics, initial encounter; Y92.009 Unspecified place in unspecified non-institutional (private) residence as the place of occurrence of the external cause; K76.0 Fatty (change of) liver, not elsewhere classified; R74.0 Nonspecific elevation of levels of transaminase and lactic acid dehydrogenase [LDH]; I73.9 Peripheral vascular disease, unspecified; E66.9 Obesity, unspecified; Z68.29 Body mass index [BMI] 29.0-29.9, adult; Y90.9 Presence of alcohol in blood, level not specified; Z90.49 Acquired absence of other specified parts of digestive tract; M20.5X2 Other deformities of toe(s) (acquired), left foot; M20.5X1 Other deformities of toe(s) (acquired), right foot; B95.7 Other staphylococcus as the cause of diseases classified elsewhere; B96.20 Unspecified Escherichia coli [E. coli] as the cause of diseases classified elsewhere; Z16.12 Extended spectrum beta lactamase (ESBL) resistance
CPT/HCPCS: 36415; 36569; 71010-TC; 73630-TC; 76705-TC; 80048-TC; 80053-TC; 80076-TC; 80202-TC; 81000-TC; 82553-TC; 82570-TC; 82728-TC; 82746; 82962-TC; 83540-TC; 83605-TC; 83615-TC; 83735-TC; 83935-TC; 84100-TC; 84300-TC; 84443-TC; 84484-TC; 85025-TC; 85045-TC; 85610-TC; 85652-TC; 85730-TC; 86140-TC; 87040-TC; 87070-TC; 87081-TC; 87086-TC; 87186-TC; 88305-TC; 88311-TC; 93307-TC; A4216; A4217; A4606; A6248; A6253; A6402; C9113; J1447; J2185; J2270; J2543; J2704; J3010; J3370; J3475; J3490; J7030; J7050; J7060; Z7610

== ENCOUNTER 2017-01-22 08:15 | Outpatient (CLI) | payer OTHER, MEDICARE ==
[~2017-01-22 08:15] MED LIST changes: +DAPT500V2 IV; +ERTA1VIA2 IV; +LACT1CAP57 PO; +LEVO500T15 PO
== END 2017-01-22 23:59 | disposition home health service (06) ==
LOC: WOU 08:15
PROVIDERS: ATTEND Podiatrist Foot & Ankle Surgery
DX: L89.624 Pressure ulcer of left heel, stage 4 (principal); L89.893 Pressure ulcer of other site, stage 3; G60.9 Hereditary and idiopathic neuropathy, unspecified; K50.90 Crohn's disease, unspecified, without complications; R26.9 Unspecified abnormalities of gait and mobility; M20.5X9 Other deformities of toe(s) (acquired), unspecified foot
CPT/HCPCS: 11042; A6402

== ENCOUNTER 2017-01-29 08:00 | Outpatient (CLI) | payer OTHER, MEDICARE ==
[~2017-01-29 08:00] MED LIST changes: -HYDR25TA4 PO; -LEVO500T15 PO
== END 2017-01-29 23:59 | disposition home health service (06) ==
LOC: WOU 08:00
PROVIDERS: ATTEND Podiatrist Foot & Ankle Surgery
DX: L89.624 Pressure ulcer of left heel, stage 4 (principal); L89.893 Pressure ulcer of other site, stage 3; M20.5X2 Other deformities of toe(s) (acquired), left foot; R26.89 Other abnormalities of gait and mobility; G62.9 Polyneuropathy, unspecified
CPT/HCPCS: 11042; A6253; A6402

== ENCOUNTER 2017-02-05 08:20 | Outpatient (CLI) | payer OTHER, MEDICARE | END 2017-02-05 23:59 | disposition home health service (06) | LOC: WOU 08:20 | PROVIDERS: ATTEND Podiatrist Foot & Ankle Surgery | DX: L89.624 Pressure ulcer of left heel, stage 4 (principal); M20.5X9 Other deformities of toe(s) (acquired), unspecified foot; L89.893 Pressure ulcer of other site, stage 3; E11.621 Type 2 diabetes mellitus with foot ulcer; L97.529 Non-pressure chronic ulcer of other part of left foot with unspecified severity | CPT/HCPCS: 11042; A6253; A6402 ==

== ENCOUNTER 2017-02-12 08:15 | Outpatient (CLI) | payer OTHER, MEDICARE | END 2017-02-12 23:59 | disposition home health service (06) | LOC: WOU 08:15 | PROVIDERS: ATTEND Podiatrist Foot & Ankle Surgery | DX: L89.624 Pressure ulcer of left heel, stage 4 (principal); L89.893 Pressure ulcer of other site, stage 3; G62.9 Polyneuropathy, unspecified; M20.5X9 Other deformities of toe(s) (acquired), unspecified foot; R26.9 Unspecified abnormalities of gait and mobility | CPT/HCPCS: 11042; A6402 ==

== ENCOUNTER 2017-02-16 06:19 | Inpatient (IN) | payer OTHER, MEDICARE ==
[2017-02-16] MEDS ORDERED: ANESTHESIA TRAY IN PYXIS 1 EA TRAY MC ONE (06:45)
--- NOTE | 2017-02-16 07:00 | NUR ---
RN ADMITTING NOTES Pt ARRIVED FOR INPATIENT DAY SURGERY OF LT FOOT ULCER. Pt IS A/OX4, VERBAL, ABLE TO MAKE NEEDS KNOWN. NO S/S OF ACUTE DISTRESS OR SOB NOTED. SAFETY MEASURES IN PLACE. BED LOW, LOCKED, HOB ELEVATED, SIDE RAILS UP, CALL LIGHT AND BEDSIDE TABLE WITHIN REACH. WAITING TO BE TRANSFERRED TO OR.
[2017-02-16] MEDS ORDERED: LIDOCAINE 0.5% HCL 50 ML VIAL ONE (07:25)
[2017-02-16] MEDS ORDERED: BUPIVACAINE 0.5 % PF 150 MG/30 ML VIAL ONE (07:25)
[2017-02-16] MEDS ORDERED: MINERAL OIL 10 ML VIAL MC ONE (07:27)
--- NOTE | 2017-02-16 07:48 | NUR ---
MS RN NOTES RECEIVED REPORT FROM AVIATION PROJECT ENGINEER NURSE THAT PT IS IN THE O.R. FOR LEFT FOOT ULCER SURGERY. WILL WAIT FOR PT POST SURGERY.
[2017-02-16 08:55] VITALS: BP 114/68
--- NOTE | 2017-02-16 09:00 | NUR ---
RN NOTES PATIENT RETURNED FROM SURGERY S/P SKIN GRAFTING OF LEFT FOOT ULCER. PT IS A/O X 4 AND VERBALLY RESPONSIVE, NO C/O PAIN OR DISCOMFORTS AT THIS TIME. PER OR NURSES SUSSY AND TATUM, DR ST REMOVED SOME SKIN FROM LEFT UPPER LEG AND GRAFT IT ON PT'S LEFT FOOT. DRESSING ON UPPER LEG AND LEFT FOOT INTACT, NO ACTIVE BLEEDING NOTED. PT ABLE TO MOVE LEFT TOES WITH POSITIVE PERIPHERAL PULSES. V/S TAKEN: 114/65 MMHG, P 68, R 18, T 97.7F AND SP02 98%. PT LEFT FOOT ELEVATED WITH PILLOW. PLACED BED IN LOW/LOCKED POSITION WITH CALL LIGHT AND BEDSIDE TABLE WITHIN REACH OF PT. MD ORDERS TO FOLLOW PER O.R. NURSES. WILL CONTINUE TO MONITOR PT ACCORDINGLY.
[2017-02-16 09:10] VITALS: BP 133/76
[2017-02-16 09:25] VITALS: BP 136/72
[2017-02-16 09:40] VITALS: BP 132/74
[2017-02-16 10:10] VITALS: BP 130/69
[2017-02-16 10:40] VITALS: BP 136/72
[2017-02-16] MEDS ORDERED: DAPTOMYCIN 500 MG/VIAL VIAL IV SCH (12:00)
[2017-02-16] MEDS ORDERED: ZOLPIDEM TARTRATE 5 MG TABLET PO PRN (12:00)
[2017-02-16] MEDS ORDERED: ONDANSETRON HCL/PF 4 MG/2 ML VIAL IVP PRN (12:00)
[2017-02-16] MEDS ORDERED: ACETAMINOPHEN 325 MG TABLET PO PRN (12:00)
[2017-02-16] MEDS ORDERED: HYDROCODONE/APAP 10/325MG 1 EA TABLET PO PRN (12:00)
[2017-02-16] MEDS ORDERED: HYDROCODONE/APAP 5/325MG 1 EACH TABLET PO PRN (12:00)
[2017-02-16] MEDS ORDERED: LACTOBACILLUS RHAMNOSUS GG 1 EACH CAP.SPRINK PO SCH (12:00)
[2017-02-16] MEDS ORDERED: MEROPENEM 1 G in IV NS 0.9% 100 ML IV SCH (13:00)
--- NOTE | 2017-02-16 15:24 | NUR ---
RN DISCHARGED NOTES PATIENT DISCHARGE HOME IN STABLE CONDITION. LEFT UNIT AT 1520H AMBULATORY WITH KNEE SCOOTER ACCOMPANIED BY BOX CAR WASHER TO LOBBY AND WILL TAKE AN UBER TAXI. PT A/O X 4, NO C/O PAIN OR DISCOMFORTS DURING DISCHARGE. V/S TAKEN AND RECORDED. S/P LEFT FOOT SURGERY/SKIN GRAFTING, DRESSING INTACT TO LEFT LATERAL UPPER LEG AND LEFT FOOT WITH CAST IN PLACED WITH POSITIVE PERIPHERAL PULSE AND NO ACTIVE BLEEDING. PT ADVISED NON WEIGHT BEARING ON LEFT LEG/FOOT AND TO FOLLOW-UP WITH PCP IN 1 WEEK. ALL OTHER HEALTH TEACHINGS GIVEN AND VERBALIZED UNDERSTANDING. VACCINES NOT GIVEN, STATED HE WILL TAKE IT OUTSIDE. BELONGINGS CHECKED, COUNTED AND SIGNED FORM. MD AND CHARGE NURSE AWARE OF DISCHARGE.
== END 2017-02-16 15:20 | disposition home or self-care (01) | DRG 575 ==
LOC: DS 06:19 → MED 06:21
PROVIDERS: ADMIT Podiatrist Foot & Ankle Surgery; ATTEND Podiatrist Foot & Ankle Surgery
PROC: 0HBJXZZ Excision of Left Upper Leg Skin, External Approach (ICD-10-PCS; principal; 2017-02-16 07:55)
PROC: 0HRNX74 Replacement of Left Foot Skin with Autologous Tissue Substitute, Partial Thickness, External Approach (ICD-10-PCS; principal; 2017-02-16 07:55)
DX: L97.429 Non-pressure chronic ulcer of left heel and midfoot with unspecified severity (principal); K70.9 Alcoholic liver disease, unspecified; D64.9 Anemia, unspecified; E78.5 Hyperlipidemia, unspecified; I10 Essential (primary) hypertension; I73.9 Peripheral vascular disease, unspecified; K76.0 Fatty (change of) liver, not elsewhere classified; Z87.891 Personal history of nicotine dependence
CPT/HCPCS: J0461; J0690; J0878; J1100; J2185; J2370; J2405; J2704; J2710; J3490; J7030; Z7610

== ENCOUNTER 2017-02-23 08:00 | Outpatient (CLI) | payer OTHER, MEDICARE | END 2017-02-23 23:59 | disposition home health service (06) | LOC: WOU 08:00 | PROVIDERS: ATTEND Podiatrist Foot & Ankle Surgery | DX: L89.624 Pressure ulcer of left heel, stage 4 (principal); M20.5X9 Other deformities of toe(s) (acquired), unspecified foot; Z87.891 Personal history of nicotine dependence; K50.90 Crohn's disease, unspecified, without complications; G62.9 Polyneuropathy, unspecified | CPT/HCPCS: A6402 ==

== ENCOUNTER 2017-03-02 08:28 | Outpatient (CLI) | payer OTHER, MEDICARE | END 2017-03-02 23:59 | disposition home health service (06) | LOC: WOU 08:28 | PROVIDERS: ATTEND Podiatrist Foot & Ankle Surgery | DX: Z48.817 Encounter for surgical aftercare following surgery on the skin and subcutaneous tissue (principal); L97.429 Non-pressure chronic ulcer of left heel and midfoot with unspecified severity; T86.821 Skin graft (allograft) (autograft) failure; M20.5X9 Other deformities of toe(s) (acquired), unspecified foot; G60.9 Hereditary and idiopathic neuropathy, unspecified; L90.9 Atrophic disorder of skin, unspecified | CPT/HCPCS: A6402 ==

== ENCOUNTER 2017-03-09 08:00 | Outpatient (CLI) | payer OTHER, MEDICARE | END 2017-03-09 23:59 | disposition home or self-care (01) | LOC: WOU 08:00 | PROVIDERS: ATTEND Podiatrist Foot & Ankle Surgery | DX: Z48.817 Encounter for surgical aftercare following surgery on the skin and subcutaneous tissue (principal); L97.429 Non-pressure chronic ulcer of left heel and midfoot with unspecified severity; B35.1 Tinea unguium; M21.542 Acquired clubfoot, left foot; M20.40 Other hammer toe(s) (acquired), unspecified foot | CPT/HCPCS: A6402 ==

== ENCOUNTER 2017-03-10 08:40 | Outpatient (CLI) | payer OTHER, MEDICARE | END 2017-03-10 23:59 | disposition home or self-care (01) | LOC: WOU 08:40 | PROVIDERS: ATTEND Specialist | DX: T82.524A Displacement of infusion catheter, initial encounter (principal); S41.111A Laceration without foreign body of right upper arm, initial encounter; W45.8XXA Other foreign body or object entering through skin, initial encounter; Y92.9 Unspecified place or not applicable; D61.818 Other pancytopenia; K50.018 Crohn's disease of small intestine with other complication; Z87.891 Personal history of nicotine dependence; M86.372 Chronic multifocal osteomyelitis, left ankle and foot | CPT/HCPCS: A6253; A6402; G0463 ==

== ENCOUNTER 2017-03-16 08:10 | Outpatient (CLI) | payer OTHER, MEDICARE | END 2017-03-16 23:59 | disposition home health service (06) | LOC: WOU 08:10 | PROVIDERS: ATTEND Podiatrist Foot & Ankle Surgery | DX: L97.428 Non-pressure chronic ulcer of left heel and midfoot with other specified severity (principal); L90.9 Atrophic disorder of skin, unspecified; M20.5X2 Other deformities of toe(s) (acquired), left foot; R26.9 Unspecified abnormalities of gait and mobility; G62.9 Polyneuropathy, unspecified | CPT/HCPCS: 17250; 29445; A6402 ==

== ENCOUNTER 2017-03-24 08:00 | Outpatient (CLI) | payer OTHER, MEDICARE | END 2017-03-24 23:59 | disposition home health service (06) | LOC: WOU 08:00 | PROVIDERS: ATTEND Podiatrist Foot & Ankle Surgery | DX: L97.422 Non-pressure chronic ulcer of left heel and midfoot with fat layer exposed (principal); M20.5X9 Other deformities of toe(s) (acquired), unspecified foot; R26.89 Other abnormalities of gait and mobility; L90.9 Atrophic disorder of skin, unspecified | CPT/HCPCS: 11042; A6402 ==

== ENCOUNTER 2017-03-31 08:00 | Outpatient (CLI) | payer OTHER, MEDICARE | END 2017-03-31 23:59 | disposition home or self-care (01) | LOC: WOU 08:00 | PROVIDERS: ATTEND Podiatrist Foot & Ankle Surgery | DX: L97.425 Non-pressure chronic ulcer of left heel and midfoot with muscle involvement without evidence of necrosis (principal); T86.821 Skin graft (allograft) (autograft) failure; M14.672 Charcot's joint, left ankle and foot; L89.893 Pressure ulcer of other site, stage 3; G62.1 Alcoholic polyneuropathy; L03.032 Cellulitis of left toe | CPT/HCPCS: 11042; 11043; A6197; A6402 ×2 ==

== ENCOUNTER 2017-04-07 08:00 | Outpatient (CLI) | payer OTHER, MEDICARE | END 2017-04-07 23:59 | disposition home or self-care (01) | LOC: WOU 08:00 | PROVIDERS: ATTEND Podiatrist Foot & Ankle Surgery | DX: L89.893 Pressure ulcer of other site, stage 3 (principal); E11.621 Type 2 diabetes mellitus with foot ulcer; L97.425 Non-pressure chronic ulcer of left heel and midfoot with muscle involvement without evidence of necrosis; E11.610 Type 2 diabetes mellitus with diabetic neuropathic arthropathy; M20.5X2 Other deformities of toe(s) (acquired), left foot | CPT/HCPCS: 11042; 11043; A6197; A6402 ==

== ENCOUNTER 2017-04-14 08:00 | Outpatient (CLI) | payer OTHER, MEDICARE | END 2017-04-14 23:59 | disposition home health service (06) | LOC: WOU 08:00 | PROVIDERS: ATTEND Podiatrist Foot & Ankle Surgery | DX: G60.9 Hereditary and idiopathic neuropathy, unspecified (principal); L97.425 Non-pressure chronic ulcer of left heel and midfoot with muscle involvement without evidence of necrosis; T86.821 Skin graft (allograft) (autograft) failure; L89.893 Pressure ulcer of other site, stage 3; M20.5X9 Other deformities of toe(s) (acquired), unspecified foot; R26.89 Other abnormalities of gait and mobility | CPT/HCPCS: 11043; A6209; A6402; A6197 ==

== ENCOUNTER 2017-04-21 08:00 | Outpatient (CLI) | payer OTHER, MEDICARE | END 2017-04-21 23:59 | disposition home health service (06) | LOC: WOU 08:00 | PROVIDERS: ATTEND Podiatrist Foot & Ankle Surgery | DX: L89.893 Pressure ulcer of other site, stage 3 (principal); T81.89XA Other complications of procedures, not elsewhere classified, initial encounter; T86.821 Skin graft (allograft) (autograft) failure; M14.672 Charcot's joint, left ankle and foot; G62.9 Polyneuropathy, unspecified | CPT/HCPCS: 11042; A6209; A6402 ==

== ENCOUNTER 2017-04-28 08:00 | Outpatient (CLI) | payer OTHER, MEDICARE | END 2017-04-28 23:59 | disposition home health service (06) | LOC: WOU 08:00 | PROVIDERS: ATTEND Podiatrist Foot & Ankle Surgery | DX: L89.893 Pressure ulcer of other site, stage 3 (principal); T81.89XA Other complications of procedures, not elsewhere classified, initial encounter; T86.821 Skin graft (allograft) (autograft) failure; M14.672 Charcot's joint, left ankle and foot; L89.619 Pressure ulcer of right heel, unspecified stage; G62.1 Alcoholic polyneuropathy | CPT/HCPCS: 11042; 82962; A6209; A6402 ==

== ENCOUNTER 2017-05-05 08:00 | Outpatient (CLI) | payer OTHER, MEDICARE | END 2017-05-05 23:59 | disposition home or self-care (01) | LOC: WOU 08:00 | PROVIDERS: ATTEND Podiatrist Foot & Ankle Surgery | DX: L89.893 Pressure ulcer of other site, stage 3 (principal); L89.629 Pressure ulcer of left heel, unspecified stage; T86.821 Skin graft (allograft) (autograft) failure; G62.1 Alcoholic polyneuropathy; M20.5X2 Other deformities of toe(s) (acquired), left foot; M10.9 Gout, unspecified; R26.89 Other abnormalities of gait and mobility | CPT/HCPCS: 11042; A6209 ×2; A6402 ==

== ENCOUNTER 2017-05-12 08:00 | Outpatient (CLI) | payer OTHER, MEDICARE | END 2017-05-12 23:59 | disposition home health service (06) | LOC: WOU 08:00 | PROVIDERS: ATTEND Specialist | DX: T86.828 Other complications of skin graft (allograft) (autograft) (principal); L97.422 Non-pressure chronic ulcer of left heel and midfoot with fat layer exposed; L89.893 Pressure ulcer of other site, stage 3; G62.1 Alcoholic polyneuropathy; K50.018 Crohn's disease of small intestine with other complication; D61.818 Other pancytopenia; M86.372 Chronic multifocal osteomyelitis, left ankle and foot; Z87.891 Personal history of nicotine dependence | CPT/HCPCS: 29445; A6209; A6402 ==

== ENCOUNTER 2017-05-19 08:00 | Outpatient (CLI) | payer OTHER, MEDICARE | END 2017-05-19 23:59 | disposition home health service (06) | LOC: WOU 08:00 | PROVIDERS: ATTEND Specialist | DX: T86.828 Other complications of skin graft (allograft) (autograft) (principal); G62.1 Alcoholic polyneuropathy; M86.372 Chronic multifocal osteomyelitis, left ankle and foot; K50.018 Crohn's disease of small intestine with other complication; D61.818 Other pancytopenia | CPT/HCPCS: 17250; A6209; A6402; A6253 ==

== ENCOUNTER 2017-05-26 08:00 | Outpatient (CLI) | payer OTHER, MEDICARE | END 2017-05-26 23:59 | disposition home health service (06) | LOC: WOU 08:00 | PROVIDERS: ATTEND Podiatrist Foot & Ankle Surgery | DX: L97.423 Non-pressure chronic ulcer of left heel and midfoot with necrosis of muscle (principal); G62.1 Alcoholic polyneuropathy; R26.9 Unspecified abnormalities of gait and mobility; T86.821 Skin graft (allograft) (autograft) failure | CPT/HCPCS: 11043; A6209; A6402 ==

== ENCOUNTER 2017-06-02 08:00 | Outpatient (CLI) | payer OTHER, MEDICARE | END 2017-06-02 23:59 | disposition home health service (06) | LOC: WOU 08:00 | PROVIDERS: ATTEND Podiatrist Foot & Ankle Surgery | DX: L97.423 Non-pressure chronic ulcer of left heel and midfoot with necrosis of muscle (principal); T86.821 Skin graft (allograft) (autograft) failure; G62.1 Alcoholic polyneuropathy; Q66.89 Other specified congenital deformities of feet; L90.9 Atrophic disorder of skin, unspecified; R26.89 Other abnormalities of gait and mobility | CPT/HCPCS: 11043; A6209; A6253; A6402 ==

== ENCOUNTER 2017-06-09 08:00 | Outpatient (CLI) | payer MEDICARE | END 2017-06-09 23:55 | disposition home health service (06) | LOC: WOU 08:00 | PROVIDERS: ATTEND Podiatrist Foot & Ankle Surgery | DX: L97.422 Non-pressure chronic ulcer of left heel and midfoot with fat layer exposed (principal); L97.522 Non-pressure chronic ulcer of other part of left foot with fat layer exposed; T86.821 Skin graft (allograft) (autograft) failure; G62.1 Alcoholic polyneuropathy; F10.20 Alcohol dependence, uncomplicated | CPT/HCPCS: 11042; A6209; A6253; A6402 ==

== ENCOUNTER 2017-06-16 08:00 | Outpatient (CLI) | payer MEDICARE | END 2017-06-16 23:59 | disposition home health service (06) | LOC: WOU 08:00 | PROVIDERS: ATTEND Podiatrist Foot & Ankle Surgery | DX: L97.422 Non-pressure chronic ulcer of left heel and midfoot with fat layer exposed (principal); L97.522 Non-pressure chronic ulcer of other part of left foot with fat layer exposed; M20.5X9 Other deformities of toe(s) (acquired), unspecified foot; G62.1 Alcoholic polyneuropathy; R26.89 Other abnormalities of gait and mobility | CPT/HCPCS: 11043; A6253; A6402 ==

== ENCOUNTER 2017-06-23 08:00 | Outpatient (CLI) | payer MEDICARE ==
[2017-08-04] MEDS ORDERED: CEFT1VIA15 IV (11:16)
[2017-08-04] MEDS ORDERED: ASPI-992 PO (11:16)
== END 2017-06-23 23:59 | disposition home health service (06) ==
LOC: WOU 08:00
PROVIDERS: ATTEND Podiatrist Foot & Ankle Surgery
DX: L97.425 Non-pressure chronic ulcer of left heel and midfoot with muscle involvement without evidence of necrosis (principal); M20.5X9 Other deformities of toe(s) (acquired), unspecified foot; R26.89 Other abnormalities of gait and mobility; G62.1 Alcoholic polyneuropathy
CPT/HCPCS: 11043; 87070-TC; A6253; A6402

== ENCOUNTER 2017-06-29 08:00 | Outpatient (CLI) | payer MEDICARE ==
[2017-08-04] MEDS ORDERED: ASPI-992 PO (11:16)
[2017-08-04] MEDS ORDERED: CEFT1VIA15 IV (11:16)
== END 2017-06-29 23:59 | disposition home health service (06) ==
LOC: WOU 08:00
PROVIDERS: ATTEND Podiatrist Foot & Ankle Surgery
DX: L97.425 Non-pressure chronic ulcer of left heel and midfoot with muscle involvement without evidence of necrosis (principal); M20.5X9 Other deformities of toe(s) (acquired), unspecified foot; S80.12XA Contusion of left lower leg, initial encounter; G62.1 Alcoholic polyneuropathy; R26.89 Other abnormalities of gait and mobility; X58.XXXA Exposure to other specified factors, initial encounter; Y93.9 Activity, unspecified; Y99.9 Unspecified external cause status
CPT/HCPCS: 11042; A6209; A6253; A6402

== ENCOUNTER 2017-07-07 08:00 | Outpatient (CLI) | payer MEDICARE ==
[2017-08-04] MEDS ORDERED: CEFT1VIA15 IV (11:16)
[2017-08-04] MEDS ORDERED: ASPI-992 PO (11:16)
== END 2017-07-07 23:59 | disposition home health service (06) ==
LOC: WOU 08:00
PROVIDERS: ATTEND Podiatrist Foot & Ankle Surgery
DX: L97.422 Non-pressure chronic ulcer of left heel and midfoot with fat layer exposed (principal); T86.821 Skin graft (allograft) (autograft) failure; G62.1 Alcoholic polyneuropathy; R26.89 Other abnormalities of gait and mobility; L90.9 Atrophic disorder of skin, unspecified
CPT/HCPCS: 11042; 11045; A6209; A6253; A6402

== ENCOUNTER 2017-07-14 08:00 | Outpatient (CLI) | payer MEDICARE ==
[2017-08-04] MEDS ORDERED: ASPI-992 PO (11:16)
[2017-08-04] MEDS ORDERED: CEFT1VIA15 IV (11:16)
== END 2017-07-14 23:59 | disposition home health service (06) ==
LOC: WOU 08:00
PROVIDERS: ATTEND Podiatrist Foot & Ankle Surgery
DX: L97.422 Non-pressure chronic ulcer of left heel and midfoot with fat layer exposed (principal); R60.0 Localized edema; Q66.89 Other specified congenital deformities of feet; R26.89 Other abnormalities of gait and mobility; G62.1 Alcoholic polyneuropathy
CPT/HCPCS: 11042; 11045; A6209; A6253; A6402

== ENCOUNTER 2017-07-23 08:15 | Outpatient (CLI) | payer MEDICARE ==
[2017-08-04] MEDS ORDERED: CEFT1VIA15 IV (11:16)
[2017-08-04] MEDS ORDERED: ASPI-992 PO (11:16)
== END 2017-07-23 23:59 | disposition home health service (06) ==
LOC: WOU 08:15
PROVIDERS: ATTEND Podiatrist Foot & Ankle Surgery
DX: L97.422 Non-pressure chronic ulcer of left heel and midfoot with fat layer exposed (principal); T86.821 Skin graft (allograft) (autograft) failure; L97.522 Non-pressure chronic ulcer of other part of left foot with fat layer exposed; S80.12XA Contusion of left lower leg, initial encounter; X58.XXXA Exposure to other specified factors, initial encounter; Y92.89 Other specified places as the place of occurrence of the external cause; R26.9 Unspecified abnormalities of gait and mobility; Q66.89 Other specified congenital deformities of feet; G62.1 Alcoholic polyneuropathy; B35.1 Tinea unguium
CPT/HCPCS: 11042; 11045; A6402

== ENCOUNTER 2017-07-30 08:00 | Outpatient (CLI) | payer MEDICARE ==
[2017-08-04] MEDS ORDERED: ASPI-992 PO (11:16)
[2017-08-04] MEDS ORDERED: CEFT1VIA15 IV (11:16)
== END 2017-07-30 23:59 | disposition home or self-care (01) ==
LOC: WOU 08:00
PROVIDERS: ATTEND Podiatrist Foot & Ankle Surgery
DX: L97.422 Non-pressure chronic ulcer of left heel and midfoot with fat layer exposed (principal); T86.821 Skin graft (allograft) (autograft) failure; L97.522 Non-pressure chronic ulcer of other part of left foot with fat layer exposed; S80.12XD Contusion of left lower leg, subsequent encounter; X58.XXXD Exposure to other specified factors, subsequent encounter; Y92.89 Other specified places as the place of occurrence of the external cause; M20.5X2 Other deformities of toe(s) (acquired), left foot; L03.116 Cellulitis of left lower limb; B96.89 Other specified bacterial agents as the cause of diseases classified elsewhere; M86.9 Osteomyelitis, unspecified; R60.9 Edema, unspecified
CPT/HCPCS: 11043; 11044; 11046; 87070; 87077; 87186; A6209; A6402

== ENCOUNTER 2017-08-01 10:01 | Inpatient (IN) | payer MEDICARE ==
[~2017-08-01] VITALS: Ht 193 cm; Wt 99.8 kg
[2017-08-01 10:36] LABS: BASOPHILS # (AUTO) 0.1 /CMM (0.0-0.2); BASOPHILS % (AUTO) 1.6 % (0.0-2.0); EOSINOPHILS % (AUTO) 5.6 % (0.0-6.0); HEMATOCRIT 31 % (39-51); HEMOGLOBIN 11.1 g/dL (13.5-17.5); LYMPHOCYTES # (AUTO) 0.6 /CMM (0.8-4.8); LYMPHOCYTES % (AUTO) 17.8 % (20.0-44.0); MEAN CORPUSCULAR HGB CONC 35 g/dl (31.0-36.0); MEAN CORPUSCULAR VOLUME 93 fL (80-96); MONOCYTES # (AUTO) 0.6 /CMM (0.1-1.30); MONOCYTES % (AUTO) 17.4 % (2.0-12.0); NEUTROPHILS # (AUTO) 1.9 /CMM (1.8-8.9); NEUTROPHILS % (AUTO) 57.6 % (43.0-81.0); PLATELET COUNT (AUTO) 158 /CMM (150-450); RDW COEFFICIENT OF VARIATION 13.1 (11.5-15.0); RED BLOOD CELL COUNT(AUTO) 3.38 MIL/uL (4.5-6.0); WHITE BLOOD COUNT (AUTO) 3.5 K/uL (4.3-11.0)
[2017-08-01 10:46] LABS: CALCIUM, SERUM 7.8 mg/dL (8.5-10.1); CREATININE 0.8 mg/dL (0.6-1.3); POTASSIUM 4.1 mmol/L (3.5-5.1)
[2017-08-01 11:15] LABS: INR 1.1 (0.87-1.13)
[2017-08-01] MEDS ORDERED: IV NS 0.9% 1,000 ML BAG IV ONE (12:00)
[2017-08-01] MEDS ORDERED: Calcium Gluconate 1GM/10ML 4.65 MEQ in IV NS 0.9% 50 ML IV ONE (12:00)
[2017-08-01 13:43] LABS: THYROID STIMULATING HORMONE 1.162 uIU/mL (0.358-3.74); URIC ACID 4.8 mg/dL (2.6-7.2)
[2017-08-01 13:44] LABS: MAGNESIUM 1.9 mg/dL (1.8-2.4); PHOSPHORUS 3.4 mg/dL (2.5-4.9)
[2017-08-01 14:50] VITALS: BP 146/72
[2017-08-01] MEDS ORDERED: ONDANSETRON HCL/PF 4 MG/2 ML VIAL IVP PRN (15:30)
[2017-08-01] MEDS ORDERED: ZOLPIDEM TARTRATE 5 MG TABLET PO PRN (15:30)
[2017-08-01] MEDS ORDERED: MAG HYDROX/AL HYDROX/SIMETH 30 ML UDC PO PRN (15:30)
[2017-08-01] MEDS ORDERED: HYDROCODONE/APAP 5/325MG 1 EACH TABLET PO PRN (15:30)
[2017-08-01] MEDS ORDERED: MAGNESIUM HYDROXIDE 30 ML UDC PO PRN (15:30)
[2017-08-01] MEDS ORDERED: ACETAMINOPHEN 325 MG TABLET PO PRN (15:30)
[2017-08-01] MEDS ORDERED: Z GUARD REMEDY 2 OZ OINT TP PRN (15:30)
[2017-08-01] MEDS ORDERED: FEE PK DOSING 1 MIN EA MC ONE (15:56)
[2017-08-01 16:00] VITALS: BP 147/71
[2017-08-01] MEDS: ENOXAPARIN SODIUM 40 MG/0.4 ML DISP.SYRIN SQ SCH (16:00)
[2017-08-01] MEDS ORDERED: VANCOMYCIN 1 GM in IV D5W 250 ML IV SCH (16:00)
[2017-08-01] MEDS: IV NS 0.9% 1,000 ML IV PRN (17:16)
[2017-08-01] MEDS: PIPERACILLIN /TAZOBACTAM 3.375 G in IV D5W 50 ML IV SCH ×2 (17:16→23:06)
[2017-08-01] MEDS: VANCOMYCIN 1.25 GM in IV D5W 500 ML IV SCH (17:56)
[2017-08-01] MEDS ORDERED: PIPERACILLIN /TAZOBACTAM 4.5 G in IV D5W 50 ML IV SCH (18:00)
[2017-08-01 19:22] VITALS: BP 144/63
[2017-08-01] MEDS ORDERED: MORPHINE SULFATE INJ 4 MG/ML DISP.SYRIN IV ONE (21:30)
[2017-08-01] MEDS ORDERED: HYDROCODONE/APAP 10/325MG 1 EA TABLET PO PRN (21:30)
[2017-08-02] VITALS (11 sets, daily range): BP systolic 125–158; BP diastolic 64–80
[2017-08-02] MEDS: VANCOMYCIN 1.25 GM in IV D5W 500 ML IV SCH ×2 (03:42→15:43)
[2017-08-02] MEDS: IV NS 0.9% 1,000 ML IV PRN (03:42)
[2017-08-02] MEDS: PIPERACILLIN /TAZOBACTAM 3.375 G in IV D5W 50 ML IV SCH ×3 (06:18→17:09)
[2017-08-02 06:57] LABS: BASOPHILS % (AUTO) 1.2 % (0.0-2.0); EOSINOPHILS % (AUTO) 9.1 % (0.0-6.0); HEMATOCRIT 32 % (39-51); HEMOGLOBIN 11.3 g/dL (13.5-17.5); LYMPHOCYTES # (AUTO) 0.6 /CMM (0.8-4.8); LYMPHOCYTES % (AUTO) 21.4 % (20.0-44.0); MEAN CORPUSCULAR HGB CONC 35 g/dl (31.0-36.0); MEAN CORPUSCULAR VOLUME 94 fL (80-96); MONOCYTES # (AUTO) 0.4 /CMM (0.1-1.30); MONOCYTES % (AUTO) 15.6 % (2.0-12.0); NEUTROPHILS # (AUTO) 1.4 /CMM (1.8-8.9); NEUTROPHILS % (AUTO) 52.7 % (43.0-81.0); PLATELET COUNT (AUTO) 150 /CMM (150-450); RDW COEFFICIENT OF VARIATION 14.1 (11.5-15.0); RED BLOOD CELL COUNT(AUTO) 3.42 MIL/uL (4.5-6.0); WHITE BLOOD COUNT (AUTO) 2.7 K/uL (4.3-11.0)
[2017-08-02 07:00] LABS: CALCIUM, SERUM 8.1 mg/dL (8.5-10.1); CREATININE 0.9 mg/dL (0.6-1.3); MAGNESIUM 1.9 mg/dL (1.8-2.4); PHOSPHORUS 3.4 mg/dL (2.5-4.9)
[2017-08-02] MEDS ORDERED: BUPIVACAINE 0.25% 75 MG/30 ML VIAL ONE (07:24)
[2017-08-02] MEDS ORDERED: ROCURONIUM BROMIDE 50 MG/5 ML ONE ×2 (07:36→09:01)
[2017-08-02 07:59] LABS: BAND % (MANUAL) 3 % (0.0-5.0); EOSINOPHILS % (MANUAL) 10 % (0-4); LYMPHOCYTES % (MANUAL) 22 % (16-48); MONOCYTES % (MANUAL) 14 % (0-11.0); NEUTROPHILS % (MANUAL) 51 (42-76)
[2017-08-02] MEDS: ASCORBIC ACID 500 MG TABLET PO SCH (09:00)
[2017-08-02] MEDS: FLUCONAZOLE (100 MG) 100 MG TABLET PO SCH (09:00)
[2017-08-02] MEDS: ZINC SULFATE 220 MG CAPSULE PO SCH (09:00)
[2017-08-02] MEDS ORDERED: HYDROGEN PEROXIDE 480 ML BOTTLE ONE (09:32)
[2017-08-02] MEDS ORDERED: HYDROMORPHONE INJ 2 MG/ML DISP.SYRIN ONE (11:02)
[2017-08-02] MEDS ORDERED: KETOROLAC TROMETHAMINE INJ 30 MG/ML VIAL ONE (11:10)
[2017-08-02] MEDS ORDERED: HYDROCODONE/APAP 5/325MG 1 EACH TABLET PO PRN (12:00)
[2017-08-02] MEDS: CYCLOBENZAPRINE 10 MG TABLET PO SCH ×2 (13:01→17:08)
[2017-08-02] MEDS: HYDROCODONE/APAP 5/325MG 1 EACH TABLET PO PRN (17:09)
[2017-08-02] MEDS: ENOXAPARIN SODIUM 40 MG/0.4 ML DISP.SYRIN SQ SCH (21:52)
[2017-08-02] MEDS: MORPHINE SULFATE INJ 4 MG/ML DISP.SYRIN IV PRN (21:56)
[2017-08-03] MEDS: PIPERACILLIN /TAZOBACTAM 3.375 G in IV D5W 50 ML IV SCH ×4 (00:09→17:17)
[2017-08-03] MEDS: MORPHINE SULFATE INJ 4 MG/ML DISP.SYRIN IV PRN (03:25)
[2017-08-03 03:39] LABS: CALCIUM, SERUM 7.3 mg/dL (8.5-10.1); CREATININE 1.3 mg/dL (0.6-1.3); POTASSIUM 4.2 mmol/L (3.5-5.1)
[2017-08-03] MEDS: VANCOMYCIN 1.25 GM in IV D5W 500 ML IV SCH ×2 (04:36→15:25)
[2017-08-03] MEDS: IV NS 0.9% 1,000 ML IV PRN (04:42)
[2017-08-03] MEDS: HYDROCODONE/APAP 5/325MG 1 EACH TABLET PO PRN ×4 (06:27→22:37)
[2017-08-03 07:54] VITALS: BP 139/55
[2017-08-03 08:00] VITALS: BP 139/55
[2017-08-03] MEDS: CYCLOBENZAPRINE 10 MG TABLET PO SCH ×3 (08:10→17:16)
[2017-08-03] MEDS: FLUCONAZOLE (100 MG) 100 MG TABLET PO SCH (08:10)
[2017-08-03] MEDS: ZINC SULFATE 220 MG CAPSULE PO SCH (08:10)
[2017-08-03] MEDS: ASCORBIC ACID 500 MG TABLET PO SCH (08:10)
[2017-08-03 15:46] VITALS: BP 139/69
[2017-08-03 16:00] VITALS: BP 137/71
[2017-08-03 20:00] VITALS: BP 150/75
[2017-08-03] MEDS ORDERED: CEFTRIAXONE 2 G in IV D5W 100 ML IV SCH (20:00)
[2017-08-03] MEDS: ENOXAPARIN SODIUM 40 MG/0.4 ML DISP.SYRIN SQ SCH (21:46)
[2017-08-03] MEDS ORDERED: HYDROCODONE/APAP 10/325MG 1 EA TABLET PO PRN (23:00)
[2017-08-03] MEDS ORDERED: POLYETHYLENE GLYCOL 3350 17 GM POWD.PACK PO SCH (23:00)
[2017-08-03] MEDS: TRAMADOL HCL 50 MG TABLET PO SCH (23:00)
[2017-08-04] MEDS: TRAMADOL HCL 50 MG TABLET PO SCH ×2 (06:11→15:00)
[2017-08-04 07:02] LABS: URINE SODIUM, RANDOM 17 mmol/l (40-220)
[2017-08-04 07:03] LABS: CREATININE 1.5 mg/dL (0.6-1.3); POTASSIUM 4.1 mmol/L (3.5-5.1)
[2017-08-04 07:06] LABS: OSMOLALITY,URINE 110 mOS/kg (340-1090)
[2017-08-04 08:00] VITALS: BP 153/77
[2017-08-04] MEDS: FLUCONAZOLE (100 MG) 100 MG TABLET PO SCH (08:18)
[2017-08-04] MEDS: ASCORBIC ACID 500 MG TABLET PO SCH (08:19)
[2017-08-04] MEDS: CYCLOBENZAPRINE 10 MG TABLET PO SCH ×2 (08:19→14:00)
[2017-08-04] MEDS: ZINC SULFATE 220 MG CAPSULE PO SCH (08:19)
[2017-08-04] MEDS ORDERED: SENNOSIDES/DOCUSATE SODIUM 1 TAB TABLET PO SCH (09:00)
[2017-08-04] MEDS ORDERED: CEFT1VIA15 IV (11:16)
[2017-08-04] MEDS ORDERED: ASPI-992 PO (11:16)
[2017-08-04] MEDS ORDERED: FEE PK DOSING 1 MIN EA MC ONE (15:53)
[2017-08-04] MEDS ORDERED: VANCOMYCIN 1.25 GM in IV NS 0.9% 500 ML IV SCH (17:00)
[2017-08-04] MEDS ORDERED: CEFTRIAXONE 2 G in IV NS 0.9% 100 ML IV SCH (20:00)
[2017-08-04] MEDS ORDERED: LINEZOLID 600 MG TABLET PO SCH (21:00)
== END 2017-08-04 16:10 | disposition home health service (06) | DRG 478 ==
LOC: ER 10:03 → MEDSG2 11:52
PROVIDERS: ADMIT Internal Medicine; ATTEND Internal Medicine
PROC: 0L8W0ZZ Division of Left Foot Tendon, Open Approach (ICD-10-PCS; 2017-08-02)
PROC: 0Q9 Lower Bones, Drainage (ICD-10-PCS; 2017-08-02)
PROC: 0QSR04Z Reposition Left Toe Phalanx with Internal Fixation Device, Open Approach (ICD-10-PCS; 2017-08-02)
PROC: 0KBW0ZZ Excision of Left Foot Muscle, Open Approach (ICD-10-PCS; principal; 2017-08-02 07:30)
PROC: 02HV33Z Insertion of Infusion Device into Superior Vena Cava, Percutaneous Approach (ICD-10-PCS; 2017-08-04)
PROC: B548ZZA Ultrasonography of Superior Vena Cava, Guidance (ICD-10-PCS; 2017-08-04)
DX: M86.9 Osteomyelitis, unspecified (principal); E87.2 Acidosis; E87.1 Hypo-osmolality and hyponatremia; L97.429 Non-pressure chronic ulcer of left heel and midfoot with unspecified severity; L03.116 Cellulitis of left lower limb; Z87.891 Personal history of nicotine dependence; E78.5 Hyperlipidemia, unspecified; Z98.890 Other specified postprocedural states; I10 Essential (primary) hypertension; Z91.018 Allergy to other foods; Z79.899 Other long term (current) drug therapy; I25.10 Atherosclerotic heart disease of native coronary artery without angina pectoris; K21.9 Gastro-esophageal reflux disease without esophagitis; I70.0 Atherosclerosis of aorta; R26.9 Unspecified abnormalities of gait and mobility; I73.9 Peripheral vascular disease, unspecified; K76.0 Fatty (change of) liver, not elsewhere classified; D63.8 Anemia in other chronic diseases classified elsewhere; Q66.89 Other specified congenital deformities of feet; S93.112A Dislocation of interphalangeal joint of left great toe, initial encounter; X58.XXXA Exposure to other specified factors, initial encounter; Y92.009 Unspecified place in unspecified non-institutional (private) residence as the place of occurrence of the external cause
CPT/HCPCS: 36415; 36569; 71045-TC; 80048-TC; 80061-TC; 80202-TC; 82533; 82962-TC; 83735-TC; 83935-TC; 84100-TC; 84300-TC; 84443-TC; 84550-TC; 85025-TC; 85730-TC; 86850-TC; 87070-TC; 87081-TC; 87186-TC; 88304-TC; 88305-TC; A4216; A4606; A6209; A6402; C1713; C1751; J0610; J0696; J1100; J1170; J1650; J1885; J2270; J2405; J2543; J2704; J2710; J3370; J3490; J7030; J7040; J7060; Z7610

== ENCOUNTER 2017-08-11 08:23 | Outpatient (CLI) | payer MEDICARE ==
[~2017-08-11 08:23] MED LIST changes: +ASPI-992 PO; +CEFT1VIA15 IV; -DAPT500V2 IV; -ERTA1VIA2 IV; -LACT1CAP57 PO
== END 2017-08-11 23:59 ==
LOC: WOU 08:23
PROVIDERS: ATTEND Podiatrist Foot & Ankle Surgery
DX: T81.31XD Disruption of external operation (surgical) wound, not elsewhere classified, subsequent encounter (principal); L97.422 Non-pressure chronic ulcer of left heel and midfoot with fat layer exposed; R60.0 Localized edema; R26.89 Other abnormalities of gait and mobility; K50.90 Crohn's disease, unspecified, without complications; G62.9 Polyneuropathy, unspecified; M10.9 Gout, unspecified; Z79.899 Other long term (current) drug therapy
CPT/HCPCS: A6253; A6402; G0463

== ENCOUNTER 2017-08-18 09:40 | Outpatient (CLI) | payer MEDICARE | END 2017-08-18 23:59 | disposition home or self-care (01) | LOC: WOU 09:40 | PROVIDERS: ATTEND Podiatrist Foot & Ankle Surgery | DX: T81.31XA Disruption of external operation (surgical) wound, not elsewhere classified, initial encounter (principal); R60.0 Localized edema; G62.1 Alcoholic polyneuropathy; M20.42 Other hammer toe(s) (acquired), left foot | CPT/HCPCS: 11042; A6402 ×2 ==

== ENCOUNTER 2017-09-01 13:19 | Outpatient (CLI) | payer MEDICARE | END 2017-09-01 23:59 | disposition home or self-care (01) | LOC: WOU 13:19 | PROVIDERS: ATTEND Podiatrist Foot & Ankle Surgery | PROC: 0QP Lower Bones, Removal (ICD-10-PCS; principal; 2017-09-01) | DX: T81.31XA Disruption of external operation (surgical) wound, not elsewhere classified, initial encounter (principal); G62.1 Alcoholic polyneuropathy; R26.9 Unspecified abnormalities of gait and mobility | CPT/HCPCS: 11042; A6402 ==

== ENCOUNTER 2017-09-07 08:00 | Outpatient (CLI) | payer MEDICARE | END 2017-09-07 23:59 | disposition home or self-care (01) | LOC: WOU 08:00 | PROVIDERS: ATTEND Podiatrist Foot & Ankle Surgery | DX: T81.31XA Disruption of external operation (surgical) wound, not elsewhere classified, initial encounter (principal); T81.89XA Other complications of procedures, not elsewhere classified, initial encounter; G62.1 Alcoholic polyneuropathy; M20.40 Other hammer toe(s) (acquired), unspecified foot; R26.9 Unspecified abnormalities of gait and mobility; R60.0 Localized edema; M86.8X7 Other osteomyelitis, ankle and foot | CPT/HCPCS: 11042; A6402 ==

== ENCOUNTER 2017-09-14 08:00 | Outpatient (CLI) | payer MEDICARE | END 2017-09-14 23:59 | LOC: WOU 08:00 | PROVIDERS: ATTEND Podiatrist Foot & Ankle Surgery | DX: T81.31XA Disruption of external operation (surgical) wound, not elsewhere classified, initial encounter (principal); R26.9 Unspecified abnormalities of gait and mobility; G62.1 Alcoholic polyneuropathy; F10.20 Alcohol dependence, uncomplicated; L97.422 Non-pressure chronic ulcer of left heel and midfoot with fat layer exposed | CPT/HCPCS: 11042; A6402; Z7610 ==

== ENCOUNTER 2017-09-21 08:00 | Outpatient (CLI) | payer MEDICARE | END 2017-09-21 23:59 | disposition home health service (06) | LOC: WOU 08:00 | PROVIDERS: ATTEND Podiatrist Foot & Ankle Surgery | DX: T81.31XA Disruption of external operation (surgical) wound, not elsewhere classified, initial encounter (principal); E11.621 Type 2 diabetes mellitus with foot ulcer; L97.422 Non-pressure chronic ulcer of left heel and midfoot with fat layer exposed; R60.0 Localized edema; G62.1 Alcoholic polyneuropathy; M86.8X7 Other osteomyelitis, ankle and foot; E11.69 Type 2 diabetes mellitus with other specified complication | CPT/HCPCS: 11042; A6402 ×2 ==

== ENCOUNTER 2017-10-05 08:15 | Outpatient (CLI) | payer MEDICARE | END 2017-10-05 23:59 | disposition home health service (06) | LOC: WOU 08:15 | PROVIDERS: ATTEND Podiatrist Foot & Ankle Surgery | DX: T81.31XA Disruption of external operation (surgical) wound, not elsewhere classified, initial encounter (principal); G62.1 Alcoholic polyneuropathy; R26.9 Unspecified abnormalities of gait and mobility; R60.9 Edema, unspecified; B35.1 Tinea unguium; Z87.39 Personal history of other diseases of the musculoskeletal system and connective tissue | CPT/HCPCS: 97602-TC; A6402; Z7610 ==

== ENCOUNTER 2017-10-13 08:02 | Outpatient (CLI) | payer MEDICARE | END 2017-10-13 23:59 | disposition home health service (06) | LOC: WOU 08:02 | PROVIDERS: ATTEND Podiatrist Foot & Ankle Surgery | DX: T81.31XD Disruption of external operation (surgical) wound, not elsewhere classified, subsequent encounter (principal); K50.018 Crohn's disease of small intestine with other complication; D61.818 Other pancytopenia; T86.828 Other complications of skin graft (allograft) (autograft) | CPT/HCPCS: G0463; Z7610 ==

== ENCOUNTER 2017-10-29 08:18 | Outpatient (CLI) | payer MEDICARE | END 2017-10-29 23:59 | disposition home or self-care (01) | LOC: WOU 08:18 | PROVIDERS: ATTEND Podiatrist Foot & Ankle Surgery | DX: L97.422 Non-pressure chronic ulcer of left heel and midfoot with fat layer exposed (principal); T81.31XA Disruption of external operation (surgical) wound, not elsewhere classified, initial encounter; G62.1 Alcoholic polyneuropathy; F10.20 Alcohol dependence, uncomplicated; R26.89 Other abnormalities of gait and mobility; Z98.1 Arthrodesis status; K50.90 Crohn's disease, unspecified, without complications | CPT/HCPCS: 11042; 17250; A6402; Z7610 ==

== ENCOUNTER 2017-11-03 13:10 | Outpatient (CLI) | payer MEDICARE | END 2017-11-03 23:59 | disposition home or self-care (01) | LOC: WOU 13:10 | PROVIDERS: ATTEND Podiatrist Foot & Ankle Surgery | DX: L97.422 Non-pressure chronic ulcer of left heel and midfoot with fat layer exposed (principal); T86.828 Other complications of skin graft (allograft) (autograft); D61.818 Other pancytopenia; K50.018 Crohn's disease of small intestine with other complication | CPT/HCPCS: 11042; A6402; Z7610 ==

== ENCOUNTER 2017-11-10 12:20 | Outpatient (CLI) | payer MEDICARE | END 2017-11-10 23:59 | disposition home or self-care (01) | LOC: WOU 12:20 | PROVIDERS: ATTEND Podiatrist Foot & Ankle Surgery | DX: L97.422 Non-pressure chronic ulcer of left heel and midfoot with fat layer exposed (principal); G62.1 Alcoholic polyneuropathy; T86.828 Other complications of skin graft (allograft) (autograft); D61.818 Other pancytopenia | CPT/HCPCS: 11042; Z7610 ==

== ENCOUNTER 2017-11-19 08:00 | Outpatient (CLI) | payer MEDICARE | END 2017-11-19 23:59 | disposition home health service (06) | LOC: WOU 08:00 | PROVIDERS: ATTEND Podiatrist Foot & Ankle Surgery | DX: L97.422 Non-pressure chronic ulcer of left heel and midfoot with fat layer exposed (principal); G62.1 Alcoholic polyneuropathy; T86.828 Other complications of skin graft (allograft) (autograft); D61.818 Other pancytopenia | CPT/HCPCS: 17250; A6402; Z7610 ==

== ENCOUNTER 2017-11-26 08:02 | Outpatient (CLI) | payer MEDICARE | END 2017-11-26 23:59 | disposition home health service (06) | LOC: WOU 08:02 | PROVIDERS: ATTEND Podiatrist Foot & Ankle Surgery | DX: M86.372 Chronic multifocal osteomyelitis, left ankle and foot (principal); L97.422 Non-pressure chronic ulcer of left heel and midfoot with fat layer exposed; G62.1 Alcoholic polyneuropathy; D61.818 Other pancytopenia; T86.828 Other complications of skin graft (allograft) (autograft); K50.018 Crohn's disease of small intestine with other complication | CPT/HCPCS: 11042; A6402 ==

== ENCOUNTER 2017-12-03 08:00 | Outpatient (CLI) | payer MEDICARE | END 2017-12-03 23:59 | disposition home health service (06) | LOC: WOU 08:00 | PROVIDERS: ATTEND Podiatrist Foot & Ankle Surgery | DX: L97.422 Non-pressure chronic ulcer of left heel and midfoot with fat layer exposed (principal); M86.372 Chronic multifocal osteomyelitis, left ankle and foot; D61.818 Other pancytopenia; K50.018 Crohn's disease of small intestine with other complication; T86.828 Other complications of skin graft (allograft) (autograft); G62.1 Alcoholic polyneuropathy | CPT/HCPCS: 17250; A6402 ==

== ENCOUNTER 2017-12-14 08:00 | Outpatient (CLI) | payer MEDICARE | END 2017-12-14 23:59 | disposition home health service (06) | LOC: WOU 08:00 | PROVIDERS: ATTEND Podiatrist Foot & Ankle Surgery | DX: L97.428 Non-pressure chronic ulcer of left heel and midfoot with other specified severity (principal); G62.1 Alcoholic polyneuropathy; R53.1 Weakness; L90.9 Atrophic disorder of skin, unspecified | CPT/HCPCS: 11042; A6402; Z7610 ==

== ENCOUNTER 2017-12-22 13:00 | Outpatient (CLI) | payer MEDICARE | END 2017-12-22 23:59 | disposition home health service (06) | LOC: WOU 13:00 | PROVIDERS: ATTEND Podiatrist Foot & Ankle Surgery | DX: K50.018 Crohn's disease of small intestine with other complication (principal); D61.818 Other pancytopenia | CPT/HCPCS: 11042; A6402; Z7610 ==

== ENCOUNTER 2017-12-28 08:00 | Outpatient (CLI) | payer BC, MEDICARE | END 2017-12-28 23:59 | disposition home health service (06) | LOC: WOU 08:00 | PROVIDERS: ATTEND Podiatrist Foot & Ankle Surgery | DX: L97.422 Non-pressure chronic ulcer of left heel and midfoot with fat layer exposed (principal); D61.818 Other pancytopenia; K50.018 Crohn's disease of small intestine with other complication | CPT/HCPCS: 11042; A6402; Z7610 ==

== ENCOUNTER 2018-01-04 08:00 | Outpatient (CLI) | payer BC, MEDICARE | END 2018-01-04 23:59 | disposition home health service (06) | LOC: WOU 08:00 | PROVIDERS: ATTEND Podiatrist Foot & Ankle Surgery | DX: L97.422 Non-pressure chronic ulcer of left heel and midfoot with fat layer exposed (principal); G62.1 Alcoholic polyneuropathy; L03.116 Cellulitis of left lower limb; B96.89 Other specified bacterial agents as the cause of diseases classified elsewhere; K50.018 Crohn's disease of small intestine with other complication | CPT/HCPCS: 11043; 87070-TC; 87075-TC; 87186-TC; 88304-TC; 88312-TC; A6402; A6407; Z7610 ==

== ENCOUNTER 2018-01-11 08:00 | Outpatient (CLI) | payer BC, MEDICARE | END 2018-01-11 23:59 | disposition home or self-care (01) | LOC: WOU 08:00 | PROVIDERS: ATTEND Podiatrist Foot & Ankle Surgery | DX: L97.424 Non-pressure chronic ulcer of left heel and midfoot with necrosis of bone (principal); G62.1 Alcoholic polyneuropathy; T86.821 Skin graft (allograft) (autograft) failure; L03.116 Cellulitis of left lower limb | CPT/HCPCS: 11043; A6402; A6407; J7040; Z7610 ==

== ENCOUNTER 2018-03-08 08:00 | Outpatient (CLI) | payer BC, MEDICARE | END 2018-03-08 23:59 | disposition home or self-care (01) | LOC: WOU 08:00 | PROVIDERS: ATTEND Podiatrist Foot & Ankle Surgery | DX: L97.422 Non-pressure chronic ulcer of left heel and midfoot with fat layer exposed (principal); G62.1 Alcoholic polyneuropathy | CPT/HCPCS: 99214; A6402; Z7610; G0463 ==

== ENCOUNTER 2018-03-11 08:00 | Outpatient (CLI) | payer BC, MEDICARE | END 2018-03-11 23:59 | disposition home or self-care (01) | LOC: WOU 08:00 | PROVIDERS: ATTEND Podiatrist Foot & Ankle Surgery | DX: L97.422 Non-pressure chronic ulcer of left heel and midfoot with fat layer exposed (principal); G62.1 Alcoholic polyneuropathy | CPT/HCPCS: 11042; A6402; Z7610 ==

== ENCOUNTER 2018-03-15 08:12 | Outpatient (CLI) | payer BC, MEDICARE | END 2018-03-15 23:59 | disposition home or self-care (01) | LOC: WOU 08:12 | PROVIDERS: ATTEND Podiatrist Foot & Ankle Surgery | DX: L97.422 Non-pressure chronic ulcer of left heel and midfoot with fat layer exposed (principal); G62.1 Alcoholic polyneuropathy; R26.89 Other abnormalities of gait and mobility | CPT/HCPCS: 11042; A6402; Z7610 ==

== ENCOUNTER 2018-03-18 08:00 | Outpatient (CLI) | payer BC, MEDICARE | END 2018-03-18 23:59 | disposition home or self-care (01) | LOC: WOU 08:00 | PROVIDERS: ATTEND Podiatrist Foot & Ankle Surgery | DX: G62.9 Polyneuropathy, unspecified (principal); L97.422 Non-pressure chronic ulcer of left heel and midfoot with fat layer exposed; R60.0 Localized edema; Z88.8 Allergy status to other drugs, medicaments and biological substances | CPT/HCPCS: 11042; A6402; Z7610 ==

== ENCOUNTER 2018-03-25 08:00 | Outpatient (CLI) | payer BC, MEDICARE | END 2018-03-25 23:59 | disposition home or self-care (01) | LOC: WOU 08:00 | PROVIDERS: ATTEND Podiatrist Foot & Ankle Surgery | DX: L97.425 Non-pressure chronic ulcer of left heel and midfoot with muscle involvement without evidence of necrosis (principal); G62.9 Polyneuropathy, unspecified; R26.89 Other abnormalities of gait and mobility; Z87.891 Personal history of nicotine dependence; K50.018 Crohn's disease of small intestine with other complication; R60.0 Localized edema; T86.828 Other complications of skin graft (allograft) (autograft); M86.372 Chronic multifocal osteomyelitis, left ankle and foot; D61.818 Other pancytopenia | CPT/HCPCS: 11043; 87070; 87075; 87077; 87186 ×2; A6402; Z7610 ==

== ENCOUNTER 2018-03-30 13:00 | Outpatient (CLI) | payer BC, MEDICARE | END 2018-03-30 23:59 | disposition home or self-care (01) | LOC: WOU 13:00 | PROVIDERS: ATTEND Podiatrist Foot & Ankle Surgery | DX: L97.423 Non-pressure chronic ulcer of left heel and midfoot with necrosis of muscle (principal); G62.1 Alcoholic polyneuropathy; L03.116 Cellulitis of left lower limb | CPT/HCPCS: 11043; A6402; A6407 ==

== ENCOUNTER 2018-04-05 08:00 | Outpatient (CLI) | payer BC, MEDICARE | END 2018-04-05 23:59 | disposition home or self-care (01) | LOC: WOU 08:00 | PROVIDERS: ATTEND Podiatrist Foot & Ankle Surgery | DX: L97.426 Non-pressure chronic ulcer of left heel and midfoot with bone involvement without evidence of necrosis (principal); G62.1 Alcoholic polyneuropathy; L03.116 Cellulitis of left lower limb; R26.9 Unspecified abnormalities of gait and mobility; R60.0 Localized edema | CPT/HCPCS: 11044; 87070; 87075; 97605; A6402; Z7610; 87186-TC ==

== ENCOUNTER 2018-04-08 11:00 | Outpatient (CLI) | payer BC, MEDICARE | END 2018-04-08 23:59 | disposition home or self-care (01) | LOC: WOU 11:00 | PROVIDERS: ATTEND Podiatrist Foot & Ankle Surgery | DX: L97.424 Non-pressure chronic ulcer of left heel and midfoot with necrosis of bone (principal); G62.1 Alcoholic polyneuropathy; F10.20 Alcohol dependence, uncomplicated; L03.116 Cellulitis of left lower limb; R26.89 Other abnormalities of gait and mobility | CPT/HCPCS: 11044; 97605; A6402; Z7610 ==

== ENCOUNTER 2018-04-12 08:00 | Outpatient (CLI) | payer BC, MEDICARE | END 2018-04-12 23:59 | disposition home or self-care (01) | LOC: WOU 08:00 | PROVIDERS: ATTEND Podiatrist Foot & Ankle Surgery | DX: L97.426 Non-pressure chronic ulcer of left heel and midfoot with bone involvement without evidence of necrosis (principal); G62.1 Alcoholic polyneuropathy; R26.89 Other abnormalities of gait and mobility | CPT/HCPCS: 11044; 87070; 97605; A6402; Z7610; 87186-TC ==

== ENCOUNTER 2018-04-15 08:00 | Outpatient (CLI) | payer BC, MEDICARE | END 2018-04-15 23:59 | disposition home or self-care (01) | LOC: WOU 08:00 | PROVIDERS: ATTEND Podiatrist Foot & Ankle Surgery | DX: G62.1 Alcoholic polyneuropathy (principal); L97.424 Non-pressure chronic ulcer of left heel and midfoot with necrosis of bone; L08.89 Other specified local infections of the skin and subcutaneous tissue; B96.5 Pseudomonas (aeruginosa) (mallei) (pseudomallei) as the cause of diseases classified elsewhere; K50.018 Crohn's disease of small intestine with other complication; T86.828 Other complications of skin graft (allograft) (autograft); R26.89 Other abnormalities of gait and mobility | CPT/HCPCS: 11044; 73630-TC; 97605-TC; A6402 ==

== ENCOUNTER 2018-04-19 08:00 | Outpatient (CLI) | payer BC, MEDICARE | END 2018-04-19 23:59 | disposition home or self-care (01) | LOC: WOU 08:00 | PROVIDERS: ATTEND Podiatrist Foot & Ankle Surgery | DX: G62.1 Alcoholic polyneuropathy (principal); L97.426 Non-pressure chronic ulcer of left heel and midfoot with bone involvement without evidence of necrosis; R26.89 Other abnormalities of gait and mobility | CPT/HCPCS: 11044; A6402 ==

== ENCOUNTER 2018-04-22 08:00 | Outpatient (CLI) | payer BC, MEDICARE | END 2018-04-22 23:59 | disposition home or self-care (01) | LOC: WOU 08:00 | PROVIDERS: ATTEND Podiatrist Foot & Ankle Surgery | DX: L97.424 Non-pressure chronic ulcer of left heel and midfoot with necrosis of bone (principal); G62.1 Alcoholic polyneuropathy; R60.0 Localized edema | CPT/HCPCS: 11044; 97605; A6253; A6402; Z7610 ==

== ENCOUNTER 2018-04-26 08:00 | Outpatient (CLI) | payer BC, MEDICARE | END 2018-04-26 23:59 | disposition home or self-care (01) | LOC: WOU 08:00 | PROVIDERS: ATTEND Podiatrist Foot & Ankle Surgery | DX: L97.426 Non-pressure chronic ulcer of left heel and midfoot with bone involvement without evidence of necrosis (principal); G62.1 Alcoholic polyneuropathy; R26.89 Other abnormalities of gait and mobility; R60.0 Localized edema | CPT/HCPCS: 11044; 97605; A6402 ==

== ENCOUNTER 2018-04-29 08:00 | Outpatient (CLI) | payer BC, MEDICARE | END 2018-04-29 23:59 | disposition home or self-care (01) | LOC: WOU 08:00 | PROVIDERS: ATTEND Podiatrist Foot & Ankle Surgery | DX: L97.424 Non-pressure chronic ulcer of left heel and midfoot with necrosis of bone (principal); G62.1 Alcoholic polyneuropathy; M86.8X7 Other osteomyelitis, ankle and foot; B96.89 Other specified bacterial agents as the cause of diseases classified elsewhere; R26.89 Other abnormalities of gait and mobility | CPT/HCPCS: 11044; 97605-TC; A6402 ==

== ENCOUNTER 2018-05-06 08:00 | Outpatient (CLI) | payer BC, MEDICARE | END 2018-05-06 23:59 | disposition home or self-care (01) | LOC: WOU 08:00 | PROVIDERS: ATTEND Podiatrist Foot & Ankle Surgery | DX: L97.424 Non-pressure chronic ulcer of left heel and midfoot with necrosis of bone (principal); G62.1 Alcoholic polyneuropathy; R26.89 Other abnormalities of gait and mobility | CPT/HCPCS: 11044; 97605-TC; A6209; A6402 ==

== ENCOUNTER 2018-05-10 08:00 | Outpatient (CLI) | payer BC, MEDICARE | END 2018-05-10 23:59 | disposition home or self-care (01) | LOC: WOU 08:00 | PROVIDERS: ATTEND Podiatrist Foot & Ankle Surgery | DX: G62.1 Alcoholic polyneuropathy (principal); L97.422 Non-pressure chronic ulcer of left heel and midfoot with fat layer exposed; L97.426 Non-pressure chronic ulcer of left heel and midfoot with bone involvement without evidence of necrosis; M86.8X7 Other osteomyelitis, ankle and foot; R26.89 Other abnormalities of gait and mobility | CPT/HCPCS: 11042; 11043; 87070; 87077; 87186 ×2; 97605; A6209; A6402 ==

== ENCOUNTER 2018-05-13 08:00 | Outpatient (CLI) | payer BC, MEDICARE | END 2018-05-13 23:59 | disposition home or self-care (01) | LOC: WOU 08:00 | PROVIDERS: ATTEND Podiatrist Foot & Ankle Surgery | DX: L97.426 Non-pressure chronic ulcer of left heel and midfoot with bone involvement without evidence of necrosis (principal); G62.1 Alcoholic polyneuropathy; R26.9 Unspecified abnormalities of gait and mobility; M86.8X7 Other osteomyelitis, ankle and foot | CPT/HCPCS: 11043; 97605; A6402 ==

== ENCOUNTER 2018-05-17 08:03 | Outpatient (CLI) | payer BC, MEDICARE | END 2018-05-17 23:59 | disposition home or self-care (01) | LOC: WOU 08:03 | PROVIDERS: ATTEND Podiatrist Foot & Ankle Surgery | DX: L97.423 Non-pressure chronic ulcer of left heel and midfoot with necrosis of muscle (principal); M86.372 Chronic multifocal osteomyelitis, left ankle and foot; T86.828 Other complications of skin graft (allograft) (autograft); D61.818 Other pancytopenia; M10.9 Gout, unspecified; K50.018 Crohn's disease of small intestine with other complication; Z87.891 Personal history of nicotine dependence | CPT/HCPCS: 11043; 97605; A6402 ==

== ENCOUNTER 2018-05-19 08:10 | Outpatient (CLI) | payer BC, MEDICARE | END 2018-05-19 23:59 | disposition home or self-care (01) | LOC: WOU 08:10 | PROVIDERS: ATTEND Podiatrist Foot & Ankle Surgery | DX: L97.423 Non-pressure chronic ulcer of left heel and midfoot with necrosis of muscle (principal); M86.372 Chronic multifocal osteomyelitis, left ankle and foot; D61.818 Other pancytopenia; K50.018 Crohn's disease of small intestine with other complication; T86.828 Other complications of skin graft (allograft) (autograft) | CPT/HCPCS: A6402 ==

== ENCOUNTER 2018-05-20 08:46 | Outpatient (CLI) | payer BC, MEDICARE | END 2018-05-20 23:59 | disposition home or self-care (01) | LOC: CT 08:46 | PROVIDERS: ATTEND Podiatrist Foot & Ankle Surgery | DX: L97.429 Non-pressure chronic ulcer of left heel and midfoot with unspecified severity (principal); M85.872 Other specified disorders of bone density and structure, left ankle and foot; M19.072 Primary osteoarthritis, left ankle and foot | CPT/HCPCS: 73700-TC ==

== ENCOUNTER 2018-05-24 08:00 | Outpatient (CLI) | payer BC ==
[2018-05-24 09:47] LABS: PREALBUMIN 20.8 MG/DL (18.0-35.7)
[2018-05-24 10:12] LABS: LYMPHOCYTES # (AUTO) 0.6 /CMM (0.8-4.8); MONOCYTES # (AUTO) 0.3 /CMM (0.1-1.30)
[2018-05-24 10:15] LABS: BASOPHILS % (AUTO) 2.2 % (0.0-2.0); EOSINOPHILS % (AUTO) 2.8 % (0.0-6.0); LYMPHOCYTES % (AUTO) 37.7 % (20.0-44.0); MEAN CORPUSCULAR HGB CONC 30 g/dl (31.0-36.0); MEAN CORPUSCULAR VOLUME 68 fL (80-96); MONOCYTES % (AUTO) 16.7 % (2.0-12.0); NEUTROPHILS # (AUTO) 0.7 /CMM (1.8-8.9); NEUTROPHILS % (AUTO) 40.6 % (43.0-81.0); PLATELET COUNT (AUTO) 93 /CMM (150-450); RED BLOOD CELL COUNT(AUTO) 2.83 MIL/uL (4.5-6.0)
[2018-05-24 10:23] LABS: HEMOGLOBIN 5.7 g/dL (13.5-17.5); WHITE BLOOD COUNT (AUTO) 1.6 K/uL (4.3-11.0)
[2018-05-24 10:24] LABS: HEMATOCRIT 19 % (39-51)
== END 2018-05-24 23:59 | disposition home or self-care (01) ==
LOC: WOU 08:00
PROVIDERS: ATTEND Podiatrist Foot & Ankle Surgery
DX: G62.1 Alcoholic polyneuropathy (principal); L97.425 Non-pressure chronic ulcer of left heel and midfoot with muscle involvement without evidence of necrosis; M86.672 Other chronic osteomyelitis, left ankle and foot; R26.9 Unspecified abnormalities of gait and mobility
CPT/HCPCS: 12020; 36415; 83036; 84134; 85025; 85652; 86140; 97605; A6402

== ENCOUNTER 2018-05-30 12:33 | Inpatient (IN) | payer BC ==
[2018-05-30] VITALS (9 sets, daily range): BP systolic 107–143; BP diastolic 46–80
[~2018-05-30] VITALS: Ht 182.9 cm; Wt 102.5 kg
--- NOTE | 2018-05-30 12:35 | NUR ---
PT BIB SELF SENT BY DR SAMARA PERALTA FOR POSSIBLE BLOOD TRANSFUSION. PT IS AAOX4, NOT IN RESPIRATORY DISTRESS, V/S STABLE, HOOKED TO MONITOR, KEPT RESTED AND COMFORTABLE, WILL CONTINUE TO MONITOR.
--- NOTE | 2018-05-30 12:45 | NUR ---
SEEN AND EXAMINED BY DR. TOSCANO.
--- NOTE | 2018-05-30 12:50 | NUR ---
IV LINE ESTABLISHED, LABS DRAWNED AND SENT TO LAB. AWAITING RESULTS.
[2018-05-30 13:03] LABS: BASOPHILS % (AUTO) 0.9 % (0.0-2.0); EOSINOPHILS % (AUTO) 3.2 % (0.0-6.0); LYMPHOCYTES # (AUTO) 0.7 /CMM (0.8-4.8); LYMPHOCYTES % (AUTO) 34.6 % (20.0-44.0); MEAN CORPUSCULAR HGB CONC 30 g/dl (31.0-36.0); MEAN CORPUSCULAR VOLUME 68 fL (80-96); MONOCYTES # (AUTO) 0.3 /CMM (0.1-1.30); MONOCYTES % (AUTO) 15.9 % (2.0-12.0); NEUTROPHILS # (AUTO) 0.9 /CMM (1.8-8.9); NEUTROPHILS % (AUTO) 45.4 % (43.0-81.0); PLATELET COUNT (AUTO) 101 /CMM (150-450); RED BLOOD CELL COUNT(AUTO) 2.81 MIL/uL (4.5-6.0)
[2018-05-30 13:06] LABS: HEMATOCRIT 19 % (39-51); HEMOGLOBIN 5.7 g/dL (13.5-17.5)
[2018-05-30 13:14] LABS: CALCIUM, SERUM 7.9 mg/dL (8.5-10.1); POTASSIUM 3.7 mmol/L (3.5-5.1)
[2018-05-30 13:19] LABS: ALBUMIN 3.3 g/dL (3.4-5.0); BILIRUBIN,DIRECT 0.2 mg/dL (0.0-0.2); BILIRUBIN,TOTAL 0.5 mg/dL (0.2-1.0)
--- NOTE | 2018-05-30 13:28 | NUR ---
CALLED HOUSE SUP FOR TELE BED
[2018-05-30 13:42] LABS: NEUTROPHILS % (MANUAL) 57 (42-76)
[2018-05-30 13:43] LABS: EOSINOPHILS % (MANUAL) 3 % (0-4); LYMPHOCYTES % (MANUAL) 29 % (16-48); MONOCYTES % (MANUAL) 11 % (0-11.0)
--- NOTE | 2018-05-30 14:06 | NUR ---
DR. SUSSY COWAN AT BED SIDE FOR EVAL.
--- NOTE | 2018-05-30 14:07 | NUR ---
REPORT GIVEN TO YUNIOR MA FOR KEV. STILL FOR BLOOD TRANSFUSION.
--- NOTE | 2018-05-30 15:00 | NUR ---
rn note pt aox3, arrived from er via gurney, able to ambulate with crutch, left foot in the ortho boot and wound vac attached. Pt co pain in the left heel, after ambulating. SR on telemetry 91, vs stable. will transfuse blood soon. safety measures in place, will monitor.
[2018-05-30] MEDS ORDERED: AMOX-430 PO (15:06)
[2018-05-30] MEDS ORDERED: LEVO500T75 PO (15:06)
[2018-05-30] MEDS ORDERED: ACETAMINOPHEN 325 MG TABLET PO PRN (15:30)
[2018-05-30] MEDS ORDERED: MAG HYDROX/AL HYDROX/SIMETH 30 ML UDC PO PRN (15:30)
[2018-05-30] MEDS ORDERED: ONDANSETRON HCL/PF 4 MG/2 ML VIAL IVP PRN (15:30)
[2018-05-30] MEDS ORDERED: Z GUARD REMEDY 2 OZ OINT TP PRN (15:30)
[2018-05-30] MEDS: HYDROCODONE/APAP 5/325MG 1 EACH TABLET PO PRN ×2 (15:46→21:39)
[2018-05-30] MEDS: IV NS 0.9% 1,000 ML IV PRN (18:56)
[2018-05-30] MEDS: ZOLPIDEM TARTRATE 5 MG TABLET PO PRN (21:40)
[2018-05-31] VITALS (11 sets, daily range): BP systolic 108–163; BP diastolic 41–83
--- NOTE | 2018-05-31 00:35 | NUR ---
2ND PRBC UNIT TRANSFUSED, PT TOLERATED WELL, NO ADVERSE REACTIONS NOTED, VS DOCUMENTED.
--- NOTE | 2018-05-31 07:20 | NUR ---
WIRE STRIPPER OPENING NOTES RECEIVED BESIDE REPORT. PATIENT AWAKE IN BED A/O X4. NO SIGNS OR SYMPTOMS OF RESPIRATORY DISTRESS OR ACUTE PAIN NOTED. SINUS RHYTHM ON MONITOR AMBULATORY IN ROOM AND TO BATHROOM.(L) HEEL WOUND DRESSED NAD ELEVATED ON WOUND VAC RAC #18 GAUGE RUNNING NS@75 ML/HR WILL FOLLOW UP WITH LABS AND MD IN REGARDS TO PATIENT PLAN OF CARE
[2018-05-31 07:29] LABS: BASOPHILS % (AUTO) 1.2 % (0.0-2.0); EOSINOPHILS % (AUTO) 4.8 % (0.0-6.0); HEMATOCRIT 21 % (39-51); LYMPHOCYTES # (AUTO) 0.4 /CMM (0.8-4.8); LYMPHOCYTES % (AUTO) 31.3 % (20.0-44.0); MEAN CORPUSCULAR HGB CONC 31 g/dl (31.0-36.0); MEAN CORPUSCULAR VOLUME 70 fL (80-96); MONOCYTES # (AUTO) 0.3 /CMM (0.1-1.30); MONOCYTES % (AUTO) 18.3 % (2.0-12.0); NEUTROPHILS # (AUTO) 0.6 /CMM (1.8-8.9); NEUTROPHILS % (AUTO) 44.4 % (43.0-81.0); PLATELET COUNT (AUTO) 83 /CMM (150-450); RED BLOOD CELL COUNT(AUTO) 2.97 MIL/uL (4.5-6.0)
[2018-05-31 07:33] LABS: WHITE BLOOD COUNT (AUTO) 1.4 K/uL (4.3-11.0)
[2018-05-31 07:34] LABS: HEMOGLOBIN 6.3 g/dL (13.5-17.5)
--- NOTE | 2018-05-31 07:35 | NUR ---
RN CRITICAL LABS WBC 1.4 HGB 6.2 HCT 21 WILL F/U WITH
[2018-05-31 07:46] LABS: THYROID STIMULATING HORMONE 1.646 uIU/mL (0.358-3.74)
[2018-05-31 07:48] LABS: CALCIUM, SERUM 7.9 mg/dL (8.5-10.1); CREATININE 0.9 mg/dL (0.6-1.3); MAGNESIUM 1.7 mg/dL (1.8-2.4); PHOSPHORUS 4.6 mg/dL (2.5-4.9); POTASSIUM 3.9 mmol/L (3.5-5.1)
[2018-05-31] MEDS: PANTOPRAZOLE 40 MG VIAL IV SCH (08:25)
[2018-05-31] MEDS: HYDROCODONE/APAP 5/325MG 1 EACH TABLET PO PRN ×3 (09:30→20:48)
[2018-05-31 10:05] LABS: LYMPHOCYTES % (MANUAL) 12 % (16-48); MONOCYTES % (MANUAL) 23 % (0-11.0); NEUTROPHILS % (MANUAL) 65 (42-76)
[2018-05-31] MEDS: Magnesium 1GM/D5W 100ML PREMIX 100 ML IV SCH ×2 (10:46→11:43)
--- NOTE | 2018-05-31 13:28 | NUR ---
RN MS NOTES WOUND MD AT BEDSIDE TO REMOVE CAST. REDRESSED WITH KERLIX GAUZE AND WRAP. NO ORDERS FOR DRESSING CHANGE . NO WEIGHT BEARING AT THIS TIME WILL ENDORSE TO PT. HAS KNEE SCOOTER WILL CALL WHEN DISCHARGED
[2018-05-31] MEDS ORDERED: PIPERACILLIN /TAZOBACTAM 3.375 G in IV D5W 50 ML IV ONE (15:00)
[2018-05-31] MEDS: IV NS 0.9% 1,000 ML IV PRN (18:46)
--- NOTE | 2018-05-31 19:12 | NUR ---
RN MS CLOSING NOTES BESIDE REPORT GIVEN TO NOC PATIENT AWAKE IN BED A/O X4. NO SIGNS OR SYMPTOMS OF RESPIRATORY DISTRESS OR ACUTE PAIN NOTED LAST NORCO GIVEN @ 1512 FOR (L) FOOT PAIN DRESSING CLEAN AND DRY ELEVATED ON PILLOW. ORDERS FOR NON SHAD BEARING LFA #18 GAUGE RUNNING NS@75 ML/HR RAC # 18 GAUGE SALINE LOCK. ONE UNIT PRBC GIVEN WITH NO ADVERSE RXN DIET CHANGE TO REGULAR FOR DINNER AND TOLERATED WELL. OB STOOL FOR OCCULT BLOOD ORDERED. SAFETY PRECAUTIONS IN PLACE BED IN LOW POSITION CALL LIGHT WITHIN REACH
--- NOTE | 2018-05-31 20:00 | NUR ---
RN OPENING NOTES RECEIVED BESIDE PATIENT'S REPORT. PATIENT AWAKE IN BED A/O X4. NO SIGNS OR SYMPTOMS OF RESPIRATORY DISTRESS OR ACUTE PAIN NOTED AT THIS TIME. PATIENT IS AMBULATORY IN ROOM AND TO BATHROOM WITH LEFT LEG BOOT. (L) HEEL WOUND DRESSED NAD ELEVATED ON THE PILLOW. RAC #18 GAUGE IA PATIENT AND INTACT WITH RUNNING NS@75 ML/HR. WILL FOLLOW UP AND CONTINUE TO MONITOR PATIENT.
[2018-05-31] MEDS: PIPERACILLIN /TAZOBACTAM 3.375 G in IV D5W 100 ML IV SCH (20:47)
[2018-05-31] MEDS: ZOLPIDEM TARTRATE 5 MG TABLET PO PRN (20:48)
[2018-06-01 04:00] VITALS: BP 151/81
[2018-06-01] MEDS: PIPERACILLIN /TAZOBACTAM 3.375 G in IV D5W 100 ML IV SCH ×2 (05:09→12:09)
[2018-06-01 06:43] LABS: BASOPHILS % (AUTO) 1.8 % (0.0-2.0); EOSINOPHILS % (AUTO) 5.5 % (0.0-6.0); HEMATOCRIT 24 % (39-51); HEMOGLOBIN 7.3 g/dL (13.5-17.5); LYMPHOCYTES # (AUTO) 0.6 /CMM (0.8-4.8); MEAN CORPUSCULAR HGB CONC 31 g/dl (31.0-36.0); MEAN CORPUSCULAR VOLUME 71 fL (80-96); MONOCYTES # (AUTO) 0.3 /CMM (0.1-1.30); MONOCYTES % (AUTO) 17.6 % (2.0-12.0); NEUTROPHILS # (AUTO) 0.8 /CMM (1.8-8.9); NEUTROPHILS % (AUTO) 43.1 % (43.0-81.0); PLATELET COUNT (AUTO) 59 /CMM (150-450); RED BLOOD CELL COUNT(AUTO) 3.31 MIL/uL (4.5-6.0)
[2018-06-01 06:59] LABS: WHITE BLOOD COUNT (AUTO) 1.7 K/uL (4.3-11.0)
--- NOTE | 2018-06-01 07:10 | NUR ---
rn notes got a call from lab patient's wbc is 107. will endorse it to am rn for mcat tutor.
[2018-06-01 08:00] VITALS: BP 158/73
[2018-06-01 08:00] LABS: BAND % (MANUAL) 3 % (0.0-5.0); EOSINOPHILS % (MANUAL) 6 % (0-4); LYMPHOCYTES % (MANUAL) 40 % (16-48); MONOCYTES % (MANUAL) 10 % (0-11.0); NEUTROPHILS % (MANUAL) 41 (42-76)
[2018-06-01] MEDS: PANTOPRAZOLE 40 MG VIAL IV SCH (09:35)
[2018-06-01] MEDS: HYDROCODONE/APAP 5/325MG 1 EACH TABLET PO PRN (11:49)
[2018-06-01 12:00] VITALS: BP 158/73
[2018-06-01 13:30] LABS: OCCULT BLOOD STOOL NEGATIVE (NEGATIVE)
--- NOTE | 2018-06-01 16:42 | NUR ---
FURNITURE REPAIRER NOTE PATIENT HAS BEEN TRYING TO LEAVE AMA ALL DAY, CONVINCED TO STAY AND EXPLAINED WE WANTED TO FINISH HIS ATB AND DO LAB WORK. PIPE STRESS ENGINEER SAW PATIENT, OCCULT BLOOD TEST NEGATIVE. PANCYTOPENIA NOTED, ISOLATION PRECAUTIONS IN PLACE DURING THE SHIFT. IV REMOVED, PATIENT GIVEN MATERIALS FOR DISCHARGE. ESCORTED OUT TO VEHICLE, SPOKE TO AND IS AWARE. INSTRUCTED PATIENT THE NEED TO FOLLOW UP WITH PRIMARY CFARE AND DR PERALTA.
== END 2018-06-01 16:30 | disposition home health service (06) | DRG 809 ==
LOC: ER 12:38 → TELE1 14:36 → MEDSG1 05-31 10:05
PROVIDERS: ATTEND Nurse Practitioner Acute Care
PROC: 30233N1 Transfusion of Nonautologous Red Blood Cells into Peripheral Vein, Percutaneous Approach (ICD-10-PCS; principal; 2018-05-30)
DX: D61.818 Other pancytopenia (principal); M86.8X7 Other osteomyelitis, ankle and foot; E87.1 Hypo-osmolality and hyponatremia; L97.429 Non-pressure chronic ulcer of left heel and midfoot with unspecified severity; I25.10 Atherosclerotic heart disease of native coronary artery without angina pectoris; K21.9 Gastro-esophageal reflux disease without esophagitis; I10 Essential (primary) hypertension; E78.5 Hyperlipidemia, unspecified; Z87.891 Personal history of nicotine dependence; G62.1 Alcoholic polyneuropathy; E66.9 Obesity, unspecified; Z68.30 Body mass index [BMI] 30.0-30.9, adult; Z79.82 Long term (current) use of aspirin; Z80.3 Family history of malignant neoplasm of breast; Z80.6 Family history of leukemia
CPT/HCPCS: 36415; 80048-TC; 80061-TC; 80076-TC; 82272-TC; 83735-TC; 84100-TC; 84443-TC; 85025-TC; 85730-TC; 86850-TC; 86921-TC; 87081-TC; A6403; C9113; G0378; J2543; J3475; J7030; J7040; J7050; J7060; P9016-BL

== ENCOUNTER 2018-06-03 08:00 | Outpatient (CLI) | payer BC ==
[~2018-06-03 08:00] MED LIST changes: +AMOX-430 PO; +LEVO500T75 PO
== END 2018-06-03 23:59 | disposition home or self-care (01) ==
LOC: WOU 08:00
PROVIDERS: ATTEND Podiatrist Foot & Ankle Surgery
DX: Z48.817 Encounter for surgical aftercare following surgery on the skin and subcutaneous tissue (principal); G62.1 Alcoholic polyneuropathy; R26.89 Other abnormalities of gait and mobility; L97.428 Non-pressure chronic ulcer of left heel and midfoot with other specified severity; F10.20 Alcohol dependence, uncomplicated; Y90.9 Presence of alcohol in blood, level not specified
CPT/HCPCS: A6402

== ENCOUNTER 2018-06-10 08:15 | Outpatient (CLI) | payer BC | END 2018-06-10 23:59 | disposition home or self-care (01) | LOC: WOU 08:15 | PROVIDERS: ATTEND Podiatrist Foot & Ankle Surgery | DX: Z48.817 Encounter for surgical aftercare following surgery on the skin and subcutaneous tissue (principal); G62.1 Alcoholic polyneuropathy; F10.21 Alcohol dependence, in remission; L90.9 Atrophic disorder of skin, unspecified; R26.89 Other abnormalities of gait and mobility | CPT/HCPCS: 29445; A6402 ==

== ENCOUNTER 2018-06-17 08:05 | Outpatient (CLI) | payer BC | END 2018-06-17 23:59 | disposition home or self-care (01) | LOC: WOU 08:05 | PROVIDERS: ATTEND Podiatrist Foot & Ankle Surgery | DX: M86.372 Chronic multifocal osteomyelitis, left ankle and foot (principal); G62.1 Alcoholic polyneuropathy; T86.828 Other complications of skin graft (allograft) (autograft); D61.818 Other pancytopenia; K50.018 Crohn's disease of small intestine with other complication; Z87.891 Personal history of nicotine dependence ==

== ENCOUNTER 2018-06-24 08:00 | Outpatient (CLI) | payer BC | END 2018-06-24 23:59 | disposition home or self-care (01) | LOC: WOU 08:00 | PROVIDERS: ATTEND Podiatrist Foot & Ankle Surgery | DX: L90.9 Atrophic disorder of skin, unspecified (principal); L51.2 Toxic epidermal necrolysis [Lyell]; B35.1 Tinea unguium; M20.42 Other hammer toe(s) (acquired), left foot; G62.9 Polyneuropathy, unspecified | CPT/HCPCS: G0463 ==

== ENCOUNTER 2018-07-01 08:00 | Outpatient (CLI) | payer BC | END 2018-07-01 23:59 | disposition home or self-care (01) | LOC: WOU 08:00 | PROVIDERS: ATTEND Podiatrist Foot & Ankle Surgery | DX: L60.2 Onychogryphosis (principal); B35.1 Tinea unguium; R60.0 Localized edema; G62.1 Alcoholic polyneuropathy; F10.20 Alcohol dependence, uncomplicated; R26.89 Other abnormalities of gait and mobility; L90.9 Atrophic disorder of skin, unspecified | CPT/HCPCS: G0463 ==

== ENCOUNTER 2018-07-29 08:30 | Outpatient (CLI) | payer BC | END 2018-07-29 23:59 | disposition home or self-care (01) | LOC: WOU 08:30 | PROVIDERS: ATTEND Podiatrist Foot & Ankle Surgery | DX: L97.422 Non-pressure chronic ulcer of left heel and midfoot with fat layer exposed (principal); G62.1 Alcoholic polyneuropathy; K50.90 Crohn's disease, unspecified, without complications; Z87.891 Personal history of nicotine dependence; R26.9 Unspecified abnormalities of gait and mobility | CPT/HCPCS: 11042; 11045; A6209; A6402 ×2; A6452 ==

== ENCOUNTER 2018-08-05 08:00 | Outpatient (CLI) | payer BC | END 2018-08-05 23:59 | disposition home or self-care (01) | LOC: WOU 08:00 | PROVIDERS: ATTEND Podiatrist Foot & Ankle Surgery | DX: L97.422 Non-pressure chronic ulcer of left heel and midfoot with fat layer exposed (principal); G62.1 Alcoholic polyneuropathy; R26.89 Other abnormalities of gait and mobility | CPT/HCPCS: 11042; A6209; A6402 ×2; A6452 ==

== ENCOUNTER 2018-08-12 08:00 | Outpatient (CLI) | payer BC | END 2018-08-12 23:59 | disposition home or self-care (01) | LOC: WOU 08:00 | PROVIDERS: ATTEND Podiatrist Foot & Ankle Surgery | DX: L97.422 Non-pressure chronic ulcer of left heel and midfoot with fat layer exposed (principal); G62.1 Alcoholic polyneuropathy; L90.9 Atrophic disorder of skin, unspecified | CPT/HCPCS: 11042; A6402; A6452 ==

== ENCOUNTER 2018-08-19 08:00 | Outpatient (CLI) | END 2018-08-19 23:59 | disposition home or self-care (01) | LOC: WOU 08:00 | PROVIDERS: ATTEND Podiatrist Foot & Ankle Surgery | DX: L97.422 Non-pressure chronic ulcer of left heel and midfoot with fat layer exposed (principal); G62.1 Alcoholic polyneuropathy; L90.9 Atrophic disorder of skin, unspecified | CPT/HCPCS: 11042; A6207; A6402; A6209 ==

== ENCOUNTER 2018-08-26 08:00 | Outpatient (CLI) | payer BC | END 2018-08-26 23:59 | disposition home or self-care (01) | LOC: WOU 08:00 | PROVIDERS: ATTEND Podiatrist Foot & Ankle Surgery | DX: L97.422 Non-pressure chronic ulcer of left heel and midfoot with fat layer exposed (principal); G62.1 Alcoholic polyneuropathy; D50.9 Iron deficiency anemia, unspecified | CPT/HCPCS: 11042; A6207; A6402 ==

== ENCOUNTER 2018-09-02 10:30 | Outpatient (CLI) | payer BC | END 2018-09-02 23:59 | disposition home or self-care (01) | LOC: WOU 10:30 | PROVIDERS: ATTEND Podiatrist Foot & Ankle Surgery | DX: G62.1 Alcoholic polyneuropathy (principal); L97.422 Non-pressure chronic ulcer of left heel and midfoot with fat layer exposed; R26.89 Other abnormalities of gait and mobility | CPT/HCPCS: 11042; A6207; A6209; A6402 ×2 ==

== ENCOUNTER 2018-09-09 10:45 | Outpatient (CLI) | payer BC | END 2018-09-09 23:59 | disposition home or self-care (01) | LOC: WOU 10:45 | PROVIDERS: ATTEND Podiatrist Foot & Ankle Surgery | DX: L97.422 Non-pressure chronic ulcer of left heel and midfoot with fat layer exposed (principal); G65.2 Sequelae of toxic polyneuropathy; R26.89 Other abnormalities of gait and mobility | CPT/HCPCS: 11042; A6207; A6402 ×2; A6209 ==

== ENCOUNTER 2018-09-16 08:00 | Outpatient (CLI) | payer BC | END 2018-09-16 23:59 | disposition home or self-care (01) | LOC: WOU 08:00 | PROVIDERS: ATTEND Podiatrist Foot & Ankle Surgery | DX: L97.422 Non-pressure chronic ulcer of left heel and midfoot with fat layer exposed (principal); T86.828 Other complications of skin graft (allograft) (autograft); K50.018 Crohn's disease of small intestine with other complication; G65.2 Sequelae of toxic polyneuropathy; Z87.891 Personal history of nicotine dependence; D61.818 Other pancytopenia | CPT/HCPCS: 11042; A6402 ==

== ENCOUNTER 2018-09-23 08:00 | Outpatient (CLI) | payer BC | END 2018-09-23 23:59 | disposition home or self-care (01) | LOC: WOU 08:00 | PROVIDERS: ATTEND Podiatrist Foot & Ankle Surgery | DX: L97.422 Non-pressure chronic ulcer of left heel and midfoot with fat layer exposed (principal); G65.2 Sequelae of toxic polyneuropathy; K50.018 Crohn's disease of small intestine with other complication; T86.828 Other complications of skin graft (allograft) (autograft); Z87.891 Personal history of nicotine dependence; R26.89 Other abnormalities of gait and mobility | CPT/HCPCS: 11042; A6402; A6209 ==

== ENCOUNTER 2018-10-04 08:00 | Outpatient (CLI) | payer BC | END 2018-10-04 23:59 | disposition home or self-care (01) | LOC: WOU 08:00 | PROVIDERS: ATTEND Podiatrist Foot & Ankle Surgery | DX: G62.1 Alcoholic polyneuropathy (principal); L84 Corns and callosities; R26.89 Other abnormalities of gait and mobility; M21.2 Flexion deformity | CPT/HCPCS: 99214; A6402; G0463 ==

== ENCOUNTER 2018-10-11 08:00 | Outpatient (CLI) | payer BC | END 2018-10-11 23:59 | disposition home or self-care (01) | LOC: WOU 08:00 | PROVIDERS: ATTEND Podiatrist Foot & Ankle Surgery | DX: Z09 Encounter for follow-up examination after completed treatment for conditions other than malignant neoplasm (principal); Z87.2 Personal history of diseases of the skin and subcutaneous tissue; G62.1 Alcoholic polyneuropathy; L90.9 Atrophic disorder of skin, unspecified; L84 Corns and callosities; R26.9 Unspecified abnormalities of gait and mobility | CPT/HCPCS: A6402; G0463 ==

== ENCOUNTER 2019-02-07 08:00 | Outpatient (CLI) | payer BC | END 2019-02-07 23:59 | disposition home or self-care (01) | LOC: WOU 08:00 | PROVIDERS: ATTEND Podiatrist Foot & Ankle Surgery | DX: G62.1 Alcoholic polyneuropathy (principal); L97.422 Non-pressure chronic ulcer of left heel and midfoot with fat layer exposed; L97.522 Non-pressure chronic ulcer of other part of left foot with fat layer exposed; E65 Localized adiposity; R26.89 Other abnormalities of gait and mobility; R60.0 Localized edema | CPT/HCPCS: 11042 ==

== ENCOUNTER 2019-02-09 09:38 | Outpatient (CLI) | payer BC ==
[2019-02-09 10:47] LABS: BASOPHILS % (AUTO) 1.5 % (0.0-2.0); EOSINOPHILS % (AUTO) 5.4 % (0.0-6.0); HEMATOCRIT 25 % (39-51); HEMOGLOBIN 8.3 g/dL (13.5-17.5); LYMPHOCYTES # (AUTO) 0.4 /CMM (0.8-4.8); LYMPHOCYTES % (AUTO) 28.3 % (20.0-44.0); MEAN CORPUSCULAR HGB CONC 34 g/dl (31.0-36.0); MEAN CORPUSCULAR VOLUME 111 fL (80-96); MONOCYTES # (AUTO) 0.2 /CMM (0.1-1.30); MONOCYTES % (AUTO) 12.6 % (2.0-12.0); NEUTROPHILS # (AUTO) 0.8 /CMM (1.8-8.9); NEUTROPHILS % (AUTO) 52.2 % (43.0-81.0); PLATELET COUNT (AUTO) 90 /CMM (150-450); RED BLOOD CELL COUNT(AUTO) 2.24 MIL/uL (4.5-6.0)
[2019-02-09 10:55] LABS: WHITE BLOOD COUNT (AUTO) 1.5 K/uL (4.3-11.0)
[2019-02-09 11:14] LABS: CALCIUM, SERUM 7.8 mg/dL (8.5-10.1); CREATININE 0.9 mg/dL (0.6-1.3); POTASSIUM 3.9 mmol/L (3.5-5.1)
[2019-02-09 11:15] LABS: C-REACTIVE PROTEIN 0.5 mg/dL (0.0-0.9)
[2019-02-09 12:30] LABS: BAND % (MANUAL) 1 % (0.0-5.0); EOSINOPHILS % (MANUAL) 7 % (0-4); LYMPHOCYTES % (MANUAL) 30 % (16-48); MONOCYTES % (MANUAL) 11 % (0-11.0); MYELOCYTES % 1 % (0-0); NEUTROPHILS % (MANUAL) 50 (42-76)
== END 2019-02-09 23:59 | disposition home or self-care (01) ==
LOC: RAD 09:38
PROVIDERS: ATTEND Podiatrist Foot & Ankle Surgery
DX: M19.072 Primary osteoarthritis, left ankle and foot (principal); M21.6X2 Other acquired deformities of left foot; M77.32 Calcaneal spur, left foot; I10 Essential (primary) hypertension; I25.10 Atherosclerotic heart disease of native coronary artery without angina pectoris
CPT/HCPCS: 36415; 73630-TC; 80048-TC; 85025-TC; 85652-TC; 86140-TC

== ENCOUNTER 2019-02-14 08:00 | Outpatient (CLI) | payer BC | END 2019-02-14 23:59 | disposition home or self-care (01) | LOC: WOU 08:00 | PROVIDERS: ATTEND Podiatrist Foot & Ankle Surgery | DX: G62.1 Alcoholic polyneuropathy (principal); L97.422 Non-pressure chronic ulcer of left heel and midfoot with fat layer exposed; L97.522 Non-pressure chronic ulcer of other part of left foot with fat layer exposed; R60.0 Localized edema; D72.819 Decreased white blood cell count, unspecified | CPT/HCPCS: 11042 ==

== ENCOUNTER → 2019-02-21 | Outpatient (CLI) | payer BC | END | disposition home or self-care (01) | LOC: WOU 08:10 | PROVIDERS: ATTEND Podiatrist Foot & Ankle Surgery | DX: G62.1 Alcoholic polyneuropathy (principal); L97.422 Non-pressure chronic ulcer of left heel and midfoot with fat layer exposed; S91.302A Unspecified open wound, left foot, initial encounter; X58.XXXA Exposure to other specified factors, initial encounter; Y92.89 Other specified places as the place of occurrence of the external cause; R60.0 Localized edema; D72.819 Decreased white blood cell count, unspecified | CPT/HCPCS: 11042 ==

== ENCOUNTER 2019-02-28 08:15 | Outpatient (CLI) | payer BC | END 2019-02-28 23:59 | disposition home or self-care (01) | LOC: WOU 08:15 | PROVIDERS: ATTEND Podiatrist Foot & Ankle Surgery | DX: G62.1 Alcoholic polyneuropathy (principal); L97.422 Non-pressure chronic ulcer of left heel and midfoot with fat layer exposed; S81.812A Laceration without foreign body, left lower leg, initial encounter; X58.XXXA Exposure to other specified factors, initial encounter; Y92.89 Other specified places as the place of occurrence of the external cause; R60.0 Localized edema; M79.672 Pain in left foot; D72.819 Decreased white blood cell count, unspecified | CPT/HCPCS: 11042 ==

== ENCOUNTER 2019-03-07 08:23 | Outpatient (CLI) | payer BC | END 2019-03-07 23:59 | disposition home or self-care (01) | LOC: WOU 08:23 | PROVIDERS: ATTEND Podiatrist Foot & Ankle Surgery | DX: G62.1 Alcoholic polyneuropathy (principal); L97.422 Non-pressure chronic ulcer of left heel and midfoot with fat layer exposed; R60.0 Localized edema; R26.89 Other abnormalities of gait and mobility; D72.819 Decreased white blood cell count, unspecified | CPT/HCPCS: 11042 ==

== ENCOUNTER 2019-03-14 08:00 | Outpatient (CLI) | payer BC | END 2019-03-14 23:59 | disposition home or self-care (01) | LOC: WOU 08:00 | PROVIDERS: ATTEND Podiatrist Foot & Ankle Surgery | DX: G62.1 Alcoholic polyneuropathy (principal); L97.422 Non-pressure chronic ulcer of left heel and midfoot with fat layer exposed; S81.802A Unspecified open wound, left lower leg, initial encounter; X58.XXXA Exposure to other specified factors, initial encounter; Y92.89 Other specified places as the place of occurrence of the external cause; R21 Rash and other nonspecific skin eruption; R60.0 Localized edema; M79.672 Pain in left foot | CPT/HCPCS: 11042 ==

== ENCOUNTER 2019-03-21 08:00 | Outpatient (CLI) | payer BC | END 2019-03-21 23:59 | disposition home or self-care (01) | LOC: WOU 08:00 | PROVIDERS: ATTEND Podiatrist Foot & Ankle Surgery | DX: G62.1 Alcoholic polyneuropathy (principal); L97.422 Non-pressure chronic ulcer of left heel and midfoot with fat layer exposed; R60.0 Localized edema; M79.672 Pain in left foot; D72.819 Decreased white blood cell count, unspecified | CPT/HCPCS: 11042 ==

== ENCOUNTER 2019-03-28 08:00 | Outpatient (CLI) | payer BC | END 2019-03-28 23:59 | disposition home or self-care (01) | LOC: WOU 08:00 | PROVIDERS: ATTEND Podiatrist Foot & Ankle Surgery | DX: G62.1 Alcoholic polyneuropathy (principal); L97.422 Non-pressure chronic ulcer of left heel and midfoot with fat layer exposed; R60.0 Localized edema; D72.819 Decreased white blood cell count, unspecified | CPT/HCPCS: 11042 ==

== ENCOUNTER 2019-04-04 08:00 | Outpatient (CLI) | payer BC | END 2019-04-04 23:59 | disposition home or self-care (01) | LOC: WOU 08:00 | PROVIDERS: ATTEND Podiatrist Foot & Ankle Surgery | DX: G62.1 Alcoholic polyneuropathy (principal); L97.422 Non-pressure chronic ulcer of left heel and midfoot with fat layer exposed; R60.0 Localized edema; M79.672 Pain in left foot; D72.819 Decreased white blood cell count, unspecified | CPT/HCPCS: 11042 ==

== ENCOUNTER 2019-04-11 08:05 | Outpatient (CLI) | payer BC | END 2019-04-11 23:59 | disposition home or self-care (01) | LOC: WOU 08:05 | PROVIDERS: ATTEND Podiatrist Foot & Ankle Surgery | DX: R26.89 Other abnormalities of gait and mobility (principal); G62.1 Alcoholic polyneuropathy; R60.0 Localized edema; M79.672 Pain in left foot; L84 Corns and callosities ==

== ENCOUNTER 2019-04-18 08:00 | Outpatient (CLI) | payer BC | END 2019-04-18 23:59 | disposition home or self-care (01) | LOC: WOU 08:00 | PROVIDERS: ATTEND Podiatrist Foot & Ankle Surgery | DX: G62.1 Alcoholic polyneuropathy (principal); L84 Corns and callosities; R60.0 Localized edema | CPT/HCPCS: G0463 ==

== ENCOUNTER 2020-08-10 19:25 | Inpatient (IN) | payer BC ==
[~2020-08-10] VITALS: Ht 175.3 cm; Wt 88.0 kg
[~2020-08-10 19:25] MED LIST changes: +LEVO500T23 PO; -LEVO500T75 PO
--- NOTE | 2020-08-10 19:50 | NUR ---
PJ FROM HOME TO ER BED 7. AAOX3. NOT IN RESP DISTRESS. BROUGHT IN FOR FEVER. UPON ASSESSING PT, PT WAS NOTED WITH TEMP OF 101.0 ORALLY. NOTED R FOOT WOUND WELL A LEFT HEEL WOUND. PT NOTED TACHY CARDIC @ 114. WAST AT THE BEDSIDE FOR EVAL. ORDERS RECEIVED, NOTED AND CARRIED OUT. ESTABLISHED IN RFA 18G, PT ARRIVED WITH A LFA 18G BY EMS. BLOOD DRAWN AND GIVEN TO PHLEB AT BEDSIDE.
[2020-08-10 19:51] LABS: BASOPHILS % (AUTO) 0.6 % (0.0-2.0); EOSINOPHILS % (AUTO) 1.3 % (0.0-6.0); HEMATOCRIT 29 % (39-51); HEMOGLOBIN 9.9 g/dL (13.5-17.5); LYMPHOCYTES # (AUTO) 0.4 /CMM (0.8-4.8); MEAN CORPUSCULAR HGB CONC 34 g/dl (31.0-36.0); MEAN CORPUSCULAR VOLUME 92 fL (80-96); MONOCYTES # (AUTO) 0.5 /CMM (0.1-1.30); MONOCYTES % (AUTO) 19.7 % (2.0-12.0); NEUTROPHILS # (AUTO) 1.6 /CMM (1.8-8.9); NEUTROPHILS % (AUTO) 64.4 % (43.0-81.0); PLATELET COUNT (AUTO) 99 /CMM (150-450); RED BLOOD CELL COUNT(AUTO) 3.16 MIL/uL (4.5-6.0); WHITE BLOOD COUNT (AUTO) 2.5 K/uL (4.3-11.0)
[2020-08-10] MEDS ORDERED: IV NS 0.9% 1,000 ML BAG IV ONE (20:00)
[2020-08-10 20:02] LABS: CALCIUM, SERUM 8.2 mg/dL (8.5-10.1); CARBON DIOXIDE 15 mmol/L (21-32); CHLORIDE 105 mmol/L (98-107); CREATININE 1.8 mg/dL (0.6-1.3); GLUCOSE 159 mg/dL (74-106); POTASSIUM 3.7 mmol/L (3.5-5.1); SODIUM SERUM 135 mmol/L (136-145); UREA NITROGEN, BLOOD 24 mg/dL (7-18)
[2020-08-10 20:15] LABS: ALANINE AMINOTRANSFERASE 34 U/L (12-78); ALBUMIN 2.9 g/dL (3.4-5.0); ALKALINE PHOSPHATASE 163 U/L (46-116); ASPARTATE AMINOTRANSFERASE 27 U/L (15-37); B-TYPE NATRIURETIC PEPTIDE 397 PG/ML (0-125); BILIRUBIN,DIRECT 0.5 mg/dL (0.0-0.2); BILIRUBIN,TOTAL 1.1 mg/dL (0.2-1.0); TOTAL PROTEIN, SERUM 7.8 g/dL (6.4-8.2)
[2020-08-10] MEDS ORDERED: PIPERACILLIN /TAZOBACTAM 3.375 G in IV D5W 50 ML IV ONE (20:30)
[2020-08-10] MEDS ORDERED: VANCOMYCIN 1 GM in IV D5W 250 ML IV ONE (20:30)
[2020-08-10 20:31] LABS: LYMPHOCYTES % (MANUAL) 22 % (16-48); MONOCYTES % (MANUAL) 11 % (0-11.0); NEUTROPHILS % (MANUAL) 67 (42-76)
[2020-08-10] MEDS ORDERED: PIPERACILLIN /TAZOBACTAM 3.375 G VIAL IV ONE (20:34)
[2020-08-10] MEDS ORDERED: VANCOMYCIN 1 GM VIAL ONE (20:34)
--- NOTE | 2020-08-10 20:36 | NUR ---
COVID NEGATIVE PER LAB
[2020-08-10 20:51] LABS: BILIRUBIN,URINE SMALL (NEGATIVE); COLOR,URINE YELLOW (YELLOW); LEUKOCYTE ESTERASE ,URINE Large (NEGATIVE); NITRITE, URINE Positive (NEGATIVE); PH,URINE 5.5 (5.0-8.0); PROTEIN,URINE >=300 mg/dl (NEGATIVE); UGLUCOSE Negative (NEGATIVE)
--- NOTE | 2020-08-10 20:53 | NUR ---
WOUND CULTURE SWAB DONE AND SENT TO LAB
[2020-08-10 21:07] LABS: BACTERIA,URINE 3+ /HPF (None Seen); RBC,URINE 21-50 /HPF (0-2); SQUAMOUS EPITHELIAL CELL,UR Few /HPF (None Seen); WBC,URINE 21-50 /HPF (0-3)
--- NOTE | 2020-08-10 21:20 | NUR ---
TELE 107
[2020-08-10] MEDS ORDERED: MORPHINE SULFATE INJ 4 MG/ML DISP.SYRIN ONE (21:31)
[2020-08-10] MEDS ORDERED: LIDOCAINE 2% JEL UROJET 10 ML MM ONE (21:31)
--- NOTE | 2020-08-10 21:49 | NUR ---
fuentes cath inserted with strict sterile technique. noted dark yellow cloudy urine the dark red blood came out afterwards. aware. ordered to irrigate bladder
--- NOTE | 2020-08-10 21:59 | NUR ---
pt bladder irrigated though his fuentes cath flushed with 250ml ns with ligther red output. noted some clots as well. made aware
--- NOTE | 2020-08-10 21:59 | NUR ---
pt floey cath flushed with 250ml ns with out lither red. noted some clots as well. made aware
--- NOTE | 2020-08-10 22:06 | NUR ---
report given to nurse August at [facility] for KEV
--- NOTE | 2020-08-10 22:08 | NUR ---
pt to ct
[2020-08-10] MEDS ORDERED: SODI473S21 MC (22:22)
[2020-08-10] MEDS ORDERED: TRIA80OI TP (22:22)
[2020-08-10] MEDS ORDERED: CLOB15OI3 TP (22:22)
[2020-08-10] MEDS ORDERED: ADAL40PE SQ (22:22)
[2020-08-10] MEDS ORDERED: MORPHINE SULFATE INJ 10 MG/ML DISP.SYRIN IV ONE (22:30)
--- NOTE | 2020-08-10 22:53 | NUR ---
PT TRANSPORTED TO 1ST FLOOR
--- NOTE | 2020-08-10 22:53 | NUR ---
PT WAS TRANSPORTED TO [facility] WITH EMT AND RN AT BEDSIDE W/ ACLS PROTOCOL. NAD NOTED DURING TRANSPORT.
[2020-08-10 23:13] VITALS: BP 121/64
[2020-08-11] VITALS: BP 122/54
[2020-08-11] MEDS ORDERED: MAGNESIUM HYDROXIDE 30 ML UDC PO PRN (02:00)
[2020-08-11] MEDS ORDERED: Z GUARD REMEDY 2 OZ OINT TP PRN (02:00)
[2020-08-11] MEDS ORDERED: ONDANSETRON HCL/PF 4 MG/2 ML VIAL IVP PRN (02:00)
[2020-08-11] MEDS ORDERED: ZOLPIDEM TARTRATE 5 MG TABLET PO PRN (02:00)
[2020-08-11] MEDS: HYDROCODONE/APAP 5/325MG TABLET PO PRN ×2 (02:28→12:01)
[2020-08-11] MEDS: IV NS 0.9% 1,000 ML IV PRN ×2 (02:35→23:56)
[2020-08-11] MEDS ORDERED: PIPERACILLIN /TAZOBACTAM 3.375 G VIAL IV ONE (02:37)
--- NOTE | 2020-08-11 02:41 | NUR ---
MED NOTE: ZOSYN ADMINISTERED UNDER VERIFIED ORDER.
[2020-08-11] MEDS ORDERED: ZOSYN IVPB 3.375 G in IV D5W 50ml IV ONE (03:00)
--- NOTE | 2020-08-11 03:33 | NUR ---
MS-1/LEAD SUPPLY WORKER PTS HOME MEDS INVENTORIED AND PLACED IN PHARMACY BIN. RECEIPT PLACED IN CHART.
[2020-08-11 04:00] VITALS: BP 132/47
[2020-08-11] MEDS: ACETAMINOPHEN 325 MG TABLET PO PRN ×2 (04:33→16:04)
--- NOTE | 2020-08-11 07:20 | NUR ---
RN OPENING NOTES RECEIVED PT RESTING IN BED, A/O X4. STABLE ON ROOM AIR. NO SOB OR ANY SIGNS OF RESPIRATORY DISTRESS NOTED. NO PAIN REPORTED AT THIS TIME. IV ACCESS AT R FA #18 INTACT AND PATENT, RUNNING NS @75ML/HR, INFUSING WELL. BAKER CATH IN PLACE, HEMATURIA NOTED. ON CLEAR LIQUID DIET. SAFETY MEASURES IN PLACE. CALL LIGHT WITHIN REACH. BED LOCKED AND AT LOWEST POSITION WITH SIDE RAILS UP X3. WILL CONTINUE TO MONITOR.
[2020-08-11 08:46] LABS: CALCIUM, SERUM 7.9 mg/dL (8.5-10.1); CARBON DIOXIDE 17 mmol/L (21-32); CHLORIDE 108 mmol/L (98-107); CREATININE 1.6 mg/dL (0.6-1.3); GLUCOSE 118 mg/dL (74-106); POTASSIUM 3.8 mmol/L (3.5-5.1); SODIUM SERUM 139 mmol/L (136-145); UREA NITROGEN, BLOOD 20 mg/dL (7-18)
[2020-08-11] MEDS: PIPERACILLIN /TAZOBACTAM 3.375 G in IV D5W 50 ML IV SCH ×2 (09:10→15:01)
[2020-08-11 12:00] VITALS: BP 113/53
--- NOTE | 2020-08-11 12:00 | NUR ---
RN NOTES SEEN BY DR. CHISHOLM, BAKER CATH IRRIGATED. PT COMPLAINS OF PAIN. PAIN MEDICATION GIVEN ORDERED.
[2020-08-11] MEDS: MORPHINE SULFATE INJ 2 MG/ML DISP.SYRIN IV PRN (14:00)
[2020-08-11] MEDS: VANCOMYCIN 1.25 GM in IV D5W 250 ML IV SCH (17:51)
--- NOTE | 2020-08-11 18:47 | NUR ---
RN CLOSING NOTE NO SIGNIFICANT CHANGES DURING SHIFT. IN STABLE CONDITION. STABLE ON ROOM AIR. NO PAIN REPORTED AT THIS TIME. HEMATURIA STILL NOTED. SAFETY MEASURES STILL IN PLACE. WILL ENDORSE TO NIGHT NURSE FOR KEV.
[2020-08-11 20:00] VITALS: BP 115/53
--- NOTE | 2020-08-11 20:00 | NUR ---
rn note received pt in bed a/a/o x3, pt is on ra sating 100%, unlabored breathing. will continue with plan ofa care
[2020-08-11] MEDS ORDERED: MEROPENEM 500 MG in IV NS 0.9% 50 ML IV SCH (21:00)
[2020-08-11] MEDS ORDERED: MEROPENEM 500 MG VIAL IV ONE (21:18)
[2020-08-11] MEDS: MEROPENEM 500 MG in IV NS 0.9% 50 ML IV SCH (21:22)
[2020-08-12] MEDS: HYDROCODONE/APAP 5/325MG TABLET PO PRN ×3 (00:32→18:22)
[2020-08-12 04:00] VITALS: BP 116/60
[2020-08-12] MEDS ORDERED: MEROPENEM 500 MG VIAL IV ONE (05:34)
[2020-08-12] MEDS: MEROPENEM 500 MG in IV NS 0.9% 50 ML IV SCH (05:36)
[2020-08-12 07:00] LABS: BASOPHILS % (AUTO) 0.3 % (0.0-2.0); EOSINOPHILS % (AUTO) 0.6 % (0.0-6.0); HEMATOCRIT 26 % (39-51); LYMPHOCYTES # (AUTO) 0.8 /CMM (0.8-4.8); LYMPHOCYTES % (AUTO) 20.2 % (20.0-44.0); MEAN CORPUSCULAR HGB CONC 35 g/dl (31.0-36.0); MEAN CORPUSCULAR VOLUME 92 fL (80-96); MONOCYTES # (AUTO) 0.9 /CMM (0.1-1.30); MONOCYTES % (AUTO) 23.9 % (2.0-12.0); NEUTROPHILS # (AUTO) 2.1 /CMM (1.8-8.9); PLATELET COUNT (AUTO) 71 /CMM (150-450); WHITE BLOOD COUNT (AUTO) 3.8 K/uL (4.3-11.0)
--- NOTE | 2020-08-12 07:23 | NUR ---
rn note report given to oncoming shift for aníbal.
[2020-08-12 07:41] LABS: CALCIUM, SERUM 7.8 mg/dL (8.5-10.1); CARBON DIOXIDE 17 mmol/L (21-32); CHLORIDE 105 mmol/L (98-107); CREATININE 1.4 mg/dL (0.6-1.3); GLUCOSE 126 mg/dL (74-106); MAGNESIUM 1.7 mg/dL (1.8-2.4); PHOSPHORUS 3.5 mg/dL (2.5-4.9); POTASSIUM 3.3 mmol/L (3.5-5.1); SODIUM SERUM 135 mmol/L (136-145); UREA NITROGEN, BLOOD 19 mg/dL (7-18)
--- NOTE | 2020-08-12 07:50 | NUR ---
WOUND CARE CONSULT: PT PRESENTS WITH WOUNDS TO RT TOES AND LEFT PLANTAR HEEL, PRESENT ON ADMISSION. PT REFUSED TO HAVE HEEL DRESSING REMOVED. DR JUNE NOTIFIED OF DPM CONSULT REQUEST. PT IS CONTINENT AND ABLE TO REPOSITION IN BED. BAKER CATH NOTED. ON AGREEMENT WITH PLAN OF CARE.
--- NOTE | 2020-08-12 07:50 | NUR ---
RN NOTE LFA IV ACCESS IS BLEEDING. IV ACCESS REMOVED.
--- NOTE | 2020-08-12 07:50 | NUR ---
RN OPENING NOTE PATIENT IS CURRENTLY IN BED WITH HOB AT SEMI FOWLERS POSITION. PATIENT IS ON ROOM AIR WITH NO SIGNS OF LABORED BREATHING. PATIENT IS AOX3. BAKER CATHETER IS NOTED WITH ANDREW URINE. RFA#18 IS PATENT AND INTACT. BED IS LOCKED IN THE LOWEST POSITION, 3 GUARD RAILS RAISED, CALL BROWN WITHIN, AND ALL HOSPITAL SAFETY PRECAUTIONS ARE BEING FOLLOWED. WILL CONTINUE TO MONITOR THROUGHOUT SHIFT. Addendum: 08/12/20 at 1039 by MAILE GIBSON RN *HEMATURIA NOTED, NOT ANDREW
[2020-08-12 08:08] LABS: CHOLESTEROL 59 mg/dL (<200); HDL CHOLESTEROL 18 mg/dL (40-60); LDL 28 mg/dL (0-99); TRIGLYCERIDES 69 mg/dL (30-150)
[2020-08-12 08:26] LABS: BAND % (MANUAL) 4 % (0.0-5.0); LYMPHOCYTES % (MANUAL) 26 % (16-48); MONOCYTES % (MANUAL) 20 % (0-11.0); NEUTROPHILS % (MANUAL) 50 (42-76)
[2020-08-12] MEDS: Magnesium 1GM/D5W 100ML PREMIX 100 ML IV SCH ×2 (09:51→11:06)
[2020-08-12] MEDS ORDERED: POTASSIUM CHLORIDE 20 MEQ TAB.PRT.SR PO SCH (10:00)
--- NOTE | 2020-08-12 13:00 | NUR ---
rn note urine sample collected. awaiting lab grape picker
[2020-08-12] MEDS: MEROPENEM 500 MG in IV NS 0.9% 100 ML IV SCH ×2 (13:24→21:28)
[2020-08-12 16:00] VITALS: BP 136/60
[2020-08-12] MEDS: VANCOMYCIN 1.25 GM in IV D5W 250 ML IV SCH (18:34)
--- NOTE | 2020-08-12 18:45 | NUR ---
RN CLOSING NOTE PATIENT IS CURRENTLY IN BED WITH HOB AT SEMI FOWLERS POSITION. PATIENT IS ON ROOM AIR WITH NO SIGNS OF LABORED BREATHING. PATIENT IS AOX3. BAKER CATHETER IS NOTED WITH HEMATURIA. RFA#18 IS PATENT AND INTACT. BED IS LOCKED IN THE LOWEST POSITION, 3 GUARD RAILS RAISED, CALL BROWN WITHIN, AND ALL HOSPITAL SAFETY PRECAUTIONS ARE BEING FOLLOWED. ALL DUE MEDS GIVEN AND PATIENT REMAINED STABLE THROUGHOUT SHIFT. WILL ENDORSE TO OLDER ADULT SOCIAL WORK SPECIALIST RN FOR KEV.
[2020-08-12 18:59] LABS: BILIRUBIN,URINE NEGATIVE (NEGATIVE); COLOR,URINE RED (YELLOW); LEUKOCYTE ESTERASE ,URINE MODERATE (NEGATIVE); NITRITE, URINE NEGATIVE (NEGATIVE); PROTEIN,URINE 100 mg/dl (NEGATIVE); UGLUCOSE NEGATIVE (NEGATIVE); UROBILINOGEN,URINE 0.2 EU/dL (0.2)
[2020-08-12 19:02] LABS: BACTERIA,URINE 1+ /HPF (None Seen); RBC,URINE TOO NUMEROUS TO COUN /HPF (0-2); SQUAMOUS EPITHELIAL CELL,UR Few /HPF (None Seen); WBC,URINE 51-80 /HPF (0-3)
[2020-08-12 19:29] LABS: CREATININE, URINE 121.6 MG/DL (30.0-125.0); URINE TOTAL PROTEIN 284.7 mg/dL (0-11.9)
[2020-08-12 19:34] LABS: EOSINOPHIL,URINE Few
[2020-08-12] MEDS: MORPHINE SULFATE INJ 2 MG/ML DISP.SYRIN IV PRN (21:47)
[2020-08-12] MEDS ORDERED: CEFEPIME 1 GM VIAL ONE (22:47)
[2020-08-12] MEDS: CEFEPIME 1 GM in IV D5W 50 ML IV SCH (22:48)
[2020-08-13 04:00] VITALS: BP 126/60
[2020-08-13] MEDS: HYDROCODONE/APAP 5/325MG TABLET PO PRN ×3 (04:10→20:15)
[2020-08-13 06:08] LABS: BASOPHILS % (AUTO) 0.5 % (0.0-2.0); EOSINOPHILS % (AUTO) 2.7 % (0.0-6.0); HEMATOCRIT 28 % (39-51); HEMOGLOBIN 9.3 g/dL (13.5-17.5); LYMPHOCYTES # (AUTO) 0.7 /CMM (0.8-4.8); MEAN CORPUSCULAR HGB CONC 34 g/dl (31.0-36.0); MEAN CORPUSCULAR VOLUME 92 fL (80-96); MONOCYTES # (AUTO) 0.6 /CMM (0.1-1.30); MONOCYTES % (AUTO) 16.8 % (2.0-12.0); NEUTROPHILS # (AUTO) 1.9 /CMM (1.8-8.9); PLATELET COUNT (AUTO) 73 /CMM (150-450); RED BLOOD CELL COUNT(AUTO) 2.98 MIL/uL (4.5-6.0); WHITE BLOOD COUNT (AUTO) 3.3 K/uL (4.3-11.0)
[2020-08-13 06:37] LABS: ALBUMIN 2.1 g/dL (3.4-5.0); BILIRUBIN,TOTAL 0.8 mg/dL (0.2-1.0); CALCIUM, SERUM 7.8 mg/dL (8.5-10.1); CREATININE 1.2 mg/dL (0.6-1.3); PHOSPHORUS 3.2 mg/dL (2.5-4.9); POTASSIUM 3.8 mmol/L (3.5-5.1); TOTAL PROTEIN, SERUM 6.4 g/dL (6.4-8.2)
--- NOTE | 2020-08-13 07:30 | NUR ---
RN OPENING NOTE PT LYING IN BED SEMIFOWLER'S ON RA SPO2 97%, NO SIGNS OF RESP DISTRESS OR SOB, BREATHING EVEN AND UNLABORED. PT A/Ox3, DENIES PAIN CURRENTLY. PT HAS RFA IV ACCESS, FLUSHED, PATENT, WITH NO SIGNS OF INFILTRATION/INFECTION, INFUSING NS @ 75 ML/HR. ALL PT SAFETY PRECAUTIONS IN PLACE, BED LOCKED AND IN LOWEST POSITION, SR UP x2, CALL LIGHT WITHIN REACH. WILL CONT TO MONITOR Addendum: 08/13/20 at 0954 by BUFFY JEAN RN PT BAKER CATH DRAINING HEMATURIA VIA GRAVITY, WILL INFORM HOSPITALIST
[2020-08-13 08:00] VITALS: BP 125/83
--- NOTE | 2020-08-13 08:30 | NUR ---
RN NOTE WOOD SHOP TEACHER, VLAD GUY INFORMED OF HEMATURIA NOTED IN BAKER CATH
[2020-08-13] MEDS: CEFEPIME 1 GM in IV D5W 50 ML IV SCH ×2 (09:23→21:01)
[2020-08-13 10:50] LABS: BAND % (MANUAL) 1 % (0.0-5.0); EOSINOPHILS % (MANUAL) 3 % (0-4); LYMPHOCYTES % (MANUAL) 25 % (16-48); MONOCYTES % (MANUAL) 15 % (0-11.0); NEUTROPHILS % (MANUAL) 56 (42-76)
--- NOTE | 2020-08-13 11:00 | NUR ---
RN NOTE PT TOLERATED BEDSIDE BILAT FOOT WOUND DEBRIDEMENT WELL
[2020-08-13] MEDS: VANCOMYCIN 1.25 GM in IV D5W 250 ML IV SCH (12:05)
[2020-08-13] MEDS: MUPIROCIN OINT 2% 22 GM TUBE TP SCH (12:44)
[2020-08-13 16:00] VITALS: BP 137/62
[2020-08-13] MEDS: IV NS 0.9% 1,000 ML IV PRN (16:08)
--- NOTE | 2020-08-13 18:55 | NUR ---
RN CLOSING NOTE NO CHANGES TO PT STATUS DURING SHIFT. HEMATURIA IMPROVING. PT TO GET PICC LINE INSERTION, CONSENT SIGNED. ALL PT SAFETY PRECAUTIONS IN PLACE, WILL ENDORSE KEV TO ONCOMING NURSE
--- NOTE | 2020-08-13 19:30 | NUR ---
RN NOTE RECEIVED PT IN BED, ALERT AND ORIENTED. NO DISTRESS NOTED. DENIES SOB, 98 % ON ROOM AIR. AWAITING TO HAVE PICC LINE INSERTED. WOUND DRESSINGS ON BILATERAL FEET CLEAN DRY AND INTACT. ALL SAFETY MEASURES IMPLEMENTED PER PROTOCOL. CALL LIGHT WITHIN REACH.
--- NOTE | 2020-08-13 19:47 | NUR ---
RN NOTE PICC LINE INSERTED BY PICC LINE NURSE. OBTAINED ORDER FOR CXRAY. ORDER NOTED AND CARRIED OUT.
[2020-08-13 20:00] VITALS: BP 129/68
[2020-08-14] MEDS: HYDROCODONE/APAP 5/325MG TABLET PO PRN ×3 (00:35→16:39)
[2020-08-14 04:00] VITALS: BP 130/70
[2020-08-14 05:54] LABS: BASOPHILS % (AUTO) 0.4 % (0.0-2.0); EOSINOPHILS % (AUTO) 2.6 % (0.0-6.0); HEMATOCRIT 27 % (39-51); HEMOGLOBIN 9.1 g/dL (13.5-17.5); LYMPHOCYTES # (AUTO) 0.5 /CMM (0.8-4.8); LYMPHOCYTES % (AUTO) 25.4 % (20.0-44.0); MEAN CORPUSCULAR HGB CONC 34 g/dl (31.0-36.0); MEAN CORPUSCULAR VOLUME 92 fL (80-96); MONOCYTES # (AUTO) 0.3 /CMM (0.1-1.30); MONOCYTES % (AUTO) 14.7 % (2.0-12.0); NEUTROPHILS # (AUTO) 1.2 /CMM (1.8-8.9); NEUTROPHILS % (AUTO) 56.9 % (43.0-81.0); PLATELET COUNT (AUTO) 69 /CMM (150-450); RED BLOOD CELL COUNT(AUTO) 2.89 MIL/uL (4.5-6.0); WHITE BLOOD COUNT (AUTO) 2.1 K/uL (4.3-11.0)
[2020-08-14 06:12] LABS: CALCIUM, SERUM 7.9 mg/dL (8.5-10.1); MAGNESIUM 1.8 mg/dL (1.8-2.4); PHOSPHORUS 3.5 mg/dL (2.5-4.9); POTASSIUM 3.7 mmol/L (3.5-5.1)
--- NOTE | 2020-08-14 06:34 | NUR ---
RN CLOSING NOTES PT REMAINS AFEBRILE. BAKER CATH IN PLACE, DRAINING DARK YELLOW URINE. PT AMBULATES TO RESTROOM WITH WALKER ASSISTANCE, ABLE TO MAKE NEEDS KNOWS. NO CHANGES IN LOC NOTED. BRAN PICC LINE REMAIN PATENT AND INTACT, CONTINUE ON IVF NS. NO SIGNS OF INFILTRATION NOTED. WILL ENDORSE TO NEXT SHIFT NURSE FOR KEV.
[2020-08-14] MEDS: VANCOMYCIN 1.25 GM in IV D5W 250 ML IV SCH (06:52)
--- NOTE | 2020-08-14 07:30 | NUR ---
RN OPENING NOTE PATIENT PRESENT IN BED, A/OX4, ON ROOM AIR, NO SOB NOTED, TOLERATING WELL, AMBULATORY, IV PICC LINE PRESENT ON RIGHT ARM, INTACT AND PATENT, ON 2G SODIUM DIET, BAKER CATH IN PLACE, PATENT, DRAINING DARK YELLOW URINE BY GRAVITY, SAFETY MEASURES IN PLACE, BED LOCKED, IN LOWEST POSITION, WILL CONT TO MONITOR
[2020-08-14 08:34] LABS: EOSINOPHILS % (MANUAL) 1 % (0-4); LYMPHOCYTES % (MANUAL) 22 % (16-48); MONOCYTES % (MANUAL) 15 % (0-11.0); NEUTROPHILS % (MANUAL) 62 (42-76)
[2020-08-14] MEDS: MUPIROCIN OINT 2% 22 GM TUBE TP SCH (09:12)
[2020-08-14] MEDS: CEFEPIME 1 GM in IV D5W 50 ML IV SCH ×2 (10:53→20:44)
[2020-08-14] MEDS ORDERED: MUPI22OI7 TP (11:59)
[2020-08-14] MEDS ORDERED: MAGN400O6 PO (11:59)
[2020-08-14] MEDS ORDERED: ZOLP5TAB2 PO (11:59)
[2020-08-14] MEDS ORDERED: ALLA266C2 TP (11:59)
[2020-08-14] MEDS ORDERED: HYDR-3972 PO (11:59)
[2020-08-14] MEDS ORDERED: CEFE1PIG3 IV (11:59)
[2020-08-14] MEDS ORDERED: ACET325T53 PO (11:59)
[2020-08-14 12:00] VITALS: BP 130/70
--- NOTE | 2020-08-14 18:37 | NUR ---
RN CLOSING NOTE PATIENT REMAINS IN ROOM, D/C IS POSTPONED, FOLLOWING UP WITH HOSPITALIST AND OCCUPATIONAL HEALTH NURSE, COMFORT NEEDS ATTENDED , MEDIATIONS GIVEN, SAFETY MEASURES IMPLEMENTED, WILL ENDORSE TO PM SHIFT RN FOR KEV
--- NOTE | 2020-08-14 19:30 | NUR ---
RN NOTE REPORT RECEIVED FROM [place] REGARDING ORDERS TO DISCHARGE PATIENT, PER FACTORY MAINTENANCE MANAGER PATIENT WILL BE PICKED BY DAUGHTER. TELEPHONE CALL TO AT [phone], SPOKE WITH RENA STAPLETON, TOLD HER PATIENT WILL BE DISCHARGE TONIGHT, CONFIRMED THE ADDRESS AND IF THEY ARE HOME TO RECEIVE PATIENT. SHE STATED ADDRESS WE HAVE ON FILE IS CORRECT, AND STATED THEY WERE TOLD PADDING MACHINE OPERATOR WILL ARRANGE FOR TRANSPORT. TELEPHONE CALL TO PADDING MACHINE OPERATOR AT [phone], SPOKE WITH ERASTO LAWS RN, SAID SHE WILL ARRANGE AMBULANCE/TRANSPORT AND WILL CALL BACK.
--- NOTE | 2020-08-14 19:30 | NUR ---
RN NOTE RECEIVED REPORT FROM [place], STATED PATIENT HAS ORDERS FOR DISCHARGE TO HOME. PATIENT IN BED, AO X 4, IN NO S/SX OF ACUTE DISTRESS AT THIS TIME. NO SOB NOTED. PATIENT'S BREATHING IS EVEN AND UNLABORED, SATURATION 98% ON ROOM AIR, HR IS 99. NOTED BRAN PICC LINE, PATENT AND FLUSHING WELL, NO S/S OF INFECTION, WITH IV FLUID OF NS INFUSING AT 75 ML/HR. BAKER CATHETER CONNECTED TO URINE BAG IN PLACE, DRAINING TO A CLEAR YELLOW OUTPUT. NOTED WOUND DRESSING ON B FEET INTACT. SAFETY MEASURES IMPLEMENTED. PATIENT BED ALARM IS ON. HEAD OF BED ELEVATED. BED IS LOCKED, IN LOWEST POSITION AND SIDE RAILS UP. CALL LIGHT WITHIN REACH OF THE PATIENT. WILL CONTINUE TO MONITOR AND REASSESS FOR ANY CHANGES.
--- NOTE | 2020-08-14 19:35 | NUR ---
RN NOTE TELEPHONE CALL FROM IV LEAGUE REGARDING PATIENT, SPOKE WITH WOODY, CONFIRMED PT HEIGHT AND WEIGHT AND LOCATION OF IV ACCESS.
--- NOTE | 2020-08-14 20:00 | NUR ---
RN NOTE TELEPHONE CALL FROM URANIUM PROCESSING SUPERVISOR, SAID PATIENT WILL BE PICKED UP IN 1 HOUR. HOME HEALTH RN FOR IV ANTIBIOTICS WILL BE CANDIDA LY, AND IV ALIYAH WILL COORDINATE HOME HEALTH FOR WOUND CARE. FAMILY WAS ADVISED. NURSERYPERSON MADE AWARE.
--- NOTE | 2020-08-14 21:50 | NUR ---
RN NOTE EMT ARRIVED AT UNIT. PATIENT ID BAND CONFIRMED WITH TRANSPORTATION TEAM. REPORT GIVEN TO ROSE BLACK, BRAN PICC LINE INTACT, DISCHARGE INSTRUCTIONS GIVEN TO PATIENT. ALL BELONGINGS ACCOUNTED FOR. VS STABLE T 98.2, BP 138/62, HR 85, BREATHING UNLABORED, SATURATION AT 98% ON ROOM AIR. PICKED UP VIA AMBULANCE IN A GURNEY ACCOMPANIED BY 3 EMT PERSONNEL IN STABLE CONDITION. HAND LASTER MADE AWARE.
== END 2020-08-14 22:47 | disposition home health service (06) | DRG 871 ==
LOC: ER 19:25 → TELE1 22:38 → MEDSG1 08-11 02:53
PROVIDERS: ADMIT Nurse Practitioner Acute Care; ATTEND Registered Nurse
PROC: 02HV33Z Insertion of Infusion Device into Superior Vena Cava, Percutaneous Approach (ICD-10-PCS; principal; 2020-08-13)
PROC: B548ZZA Ultrasonography of Superior Vena Cava, Guidance (ICD-10-PCS; 2020-08-13)
DX: A41.9 Sepsis, unspecified organism (principal); N17.0 Acute kidney failure with tubular necrosis; N39.0 Urinary tract infection, site not specified; E44.0 Moderate protein-calorie malnutrition; E87.1 Hypo-osmolality and hyponatremia; L03.116 Cellulitis of left lower limb; M86.8X7 Other osteomyelitis, ankle and foot; L03.115 Cellulitis of right lower limb; E78.5 Hyperlipidemia, unspecified; I25.10 Atherosclerotic heart disease of native coronary artery without angina pectoris; E86.0 Dehydration; E66.9 Obesity, unspecified; D64.9 Anemia, unspecified; E11.42 Type 2 diabetes mellitus with diabetic polyneuropathy; E11.621 Type 2 diabetes mellitus with foot ulcer; K74.60 Unspecified cirrhosis of liver; Z20.822 Contact with and (suspected) exposure to COVID-19; Z87.891 Personal history of nicotine dependence; Z79.82 Long term (current) use of aspirin; E86.1 Hypovolemia; K80.20 Calculus of gallbladder without cholecystitis without obstruction; R16.1 Splenomegaly, not elsewhere classified; E88.09 Other disorders of plasma-protein metabolism, not elsewhere classified; Z68.28 Body mass index [BMI] 28.0-28.9, adult; R31.9 Hematuria, unspecified; N18.9 Chronic kidney disease, unspecified; I12.9 Hypertensive chronic kidney disease with stage 1 through stage 4 chronic kidney disease, or unspecified chronic kidney disease; L97.519 Non-pressure chronic ulcer of other part of right foot with unspecified severity; L97.529 Non-pressure chronic ulcer of other part of left foot with unspecified severity; E11.69 Type 2 diabetes mellitus with other specified complication; Z90.79 Acquired absence of other genital organ(s); E11.22 Type 2 diabetes mellitus with diabetic chronic kidney disease; B96.89 Other specified bacterial agents as the cause of diseases classified elsewhere; B96.20 Unspecified Escherichia coli [E. coli] as the cause of diseases classified elsewhere; B95.1 Streptococcus, group B, as the cause of diseases classified elsewhere; B95.61 Methicillin susceptible Staphylococcus aureus infection as the cause of diseases classified elsewhere; D72.819 Decreased white blood cell count, unspecified
CPT/HCPCS: 36415; 36569; 71045-TC; 80048-TC; 80053-TC; 80061-TC; 80076-TC; 80202-TC; 81001; 82570-TC; 83605-TC; 83735-TC; 83880; 84100-TC; 84155-TC; 84300-TC; 84484-TC; 85025-TC; 85730-TC; 87040-TC; 87070-TC; 87081-TC; 87086-TC; 87186-TC; 97116-TC; 97530-TC; C9803; G0378; J0692; J2185; J2270; J2543; J3370; J3475; J3490; J7030; J7060

== ENCOUNTER 2020-09-27 11:50 | Emergency (ER) | payer BC ==
[~2020-09-27] VITALS: Ht 182.9 cm; Wt 88.5 kg
[~2020-09-27 11:50] MED LIST changes: +ACET325T53 PO; +ADAL40PE SQ; +ALLA266C2 TP; -AMOX-430 PO; +CEFE1PIG3 IV; -CEFT1VIA15 IV; +CLOB15OI3 TP; +HYDR-3972 PO; -LEVO500T23 PO; +MAGN400O6 PO; +MUPI22OI7 TP; +SODI473S21 MC; +TRIA80OI TP; +ZOLP5TAB2 PO
[2020-09-27 12:00] VITALS: BP 130/77
--- NOTE | 2020-09-27 12:15 | NUR ---
MD Stephenson discontinued PICC on Right upper extremity w/o any difficulty. Dressing intact
--- NOTE | 2020-09-27 12:20 | NUR ---
Patient discharged to home in stable condition. Written and verbal after care instructions given. Patient verbalizes understanding of instruction.
== END 2020-09-27 12:22 | disposition home or self-care (01) ==
LOC: ER 11:51
DX: Z45.2 Encounter for adjustment and management of vascular access device (principal); I10 Essential (primary) hypertension; Z98.890 Other specified postprocedural states; Z79.899 Other long term (current) drug therapy; Z79.82 Long term (current) use of aspirin
CPT/HCPCS: 99281; A6403

== ENCOUNTER 2021-03-01 15:08 | Inpatient (IN) | payer BC ==
[2021-02-28 21:15] VITALS: BP 101/49
[~2021-03-01] VITALS: Ht 172.7 cm; Wt 76.7 kg
--- NOTE | 2021-03-01 15:15 | NUR ---
BAKER CATH FR [address] ROSAS
--- NOTE | 2021-03-01 15:16 | NUR ---
BIBRA 775 FOR AMS S/P BAKER CATH REMOVAL 02/28/21. NOTED ABDOMINAL DISTENSION AND PAIN 07/06. THE PATIENT IS ALERT AND ORIENTED X3 WITH EPISODES OF FORGETFULLNESS. IN ROOM AIR AND DENIES SOB. RESPIRATION REGULAR AND UNLABORED. ATTACHED TO THE MONITOR. WILL CONTINUE TO MONITOR THE PATIENT.
[2021-03-01] MEDS ORDERED: IV NS 0.9% 1,000 ML BAG IV ONE ×2 (15:30→16:30)
[2021-03-01] MEDS ORDERED: ACETAMINOPHEN 325 MG TABLET PO ONE (15:30)
--- NOTE | 2021-03-01 15:36 | NUR ---
IV LINE IS ESTABLISHED, BLOOD SPECIMEN COLLECTED AND SENT TO THE LAB. THE LINE IS SALINE LOCKED.
[2021-03-01 15:49] LABS: BASOPHILS # (AUTO) 0.1 K/uL (0.0-0.2); BASOPHILS % (AUTO) 0.8 % (0.0-2.0); EOSINOPHILS % (AUTO) 0.1 % (0.0-6.0); HEMATOCRIT 29 % (39-51); HEMOGLOBIN 9.9 g/dL (13.5-17.5); LYMPHOCYTES # (AUTO) 0.3 K/uL (0.8-4.8); LYMPHOCYTES % (AUTO) 3.1 % (20.0-44.0); MEAN CORPUSCULAR HGB CONC 34 g/dl (31.0-36.0); MEAN CORPUSCULAR VOLUME 91 fL (80-96); MONOCYTES # (AUTO) 1.1 K/uL (0.1-1.30); PLATELET COUNT (AUTO) 100 K/uL (150-450); RED BLOOD CELL COUNT(AUTO) 3.23 MIL/uL (4.5-6.0); WHITE BLOOD COUNT (AUTO) 8.5 K/uL (4.3-11.0)
[2021-03-01] MEDS ORDERED: ACETAMINOPHEN 325 MG TABLET ONE (15:49)
[2021-03-01] MEDS ORDERED: PIPERACILLIN /TAZOBACTAM 3.375 G in IV D5W 50 ML IV ONE (16:00)
--- NOTE | 2021-03-01 16:02 | NUR ---
MOVE SHEET SUBMITTED AND CALLED FOR TELE BED.
[2021-03-01 16:04] LABS: CALCIUM, SERUM 7.8 mg/dL (8.5-10.1); CARBON DIOXIDE 14 mmol/L (21-32); CHLORIDE 98 mmol/L (98-107); CREATININE 3.1 mg/dL (0.6-1.3); GLUCOSE 111 mg/dL (74-106); POTASSIUM 4.1 mmol/L (3.5-5.1); SODIUM SERUM 130 mmol/L (136-145); UREA NITROGEN, BLOOD 29 mg/dL (7-18)
--- NOTE | 2021-03-01 16:05 | NUR ---
URINE COLLECTED AND SENT TO THE LAB
[2021-03-01 16:10] LABS: ALANINE AMINOTRANSFERASE 24 U/L (12-78); ALBUMIN 2.8 g/dL (3.4-5.0); ALKALINE PHOSPHATASE 104 U/L (46-116); ASPARTATE AMINOTRANSFERASE 28 U/L (15-37); BILIRUBIN,DIRECT 0.8 mg/dL (0.0-0.2)
[2021-03-01 16:20] LABS: BILIRUBIN,URINE MODERATE (NEGATIVE); COLOR,URINE BROWN (YELLOW); LEUKOCYTE ESTERASE ,URINE LARGE (NEGATIVE); NITRITE, URINE POSITIVE (NEGATIVE); PROTEIN,URINE >=300 mg/dl (NEGATIVE); UGLUCOSE NEGATIVE (NEGATIVE)
[2021-03-01 16:35] LABS: BACTERIA,URINE 3+ /HPF (None Seen); RBC,URINE TOO NUMEROUS TO COUN /HPF (0-2); SQUAMOUS EPITHELIAL CELL,UR Few /HPF (None Seen); URINE AMORPHOUS URATE Few /HPF (None Seen); WBC,URINE 81-100 /HPF (0-3)
--- NOTE | 2021-03-01 16:38 | NUR ---
RT AT PT'S BEDSIDE FOR ABG
[2021-03-01 16:46] LABS: ABG PCO2 20.5 mmHg (35.0-45.0); ABG PH 7.463 (7.350-7.450); ABG PO2 75.2 mmHg (75.0-100.0); COHb 0.3 % (0.5-1.5); MetHb 0.5 % (0.0-1.5); O2Hb 94.4 % (94.0-97.0); SITE, ABG Right Radial; VENT MODE, BG RA
--- NOTE | 2021-03-01 16:50 | NUR ---
COVID SWAB DONE AND SENT TO THE LAB
[2021-03-01] MEDS ORDERED: ACETAMINOPHEN 325 MG TABLET PO PRN (17:00)
[2021-03-01] MEDS ORDERED: ONDANSETRON HCL/PF 4 MG/2 ML VIAL IVP PRN (17:00)
--- NOTE | 2021-03-01 17:00 | NUR ---
600 ML CLOUDY, TEA COLOR URINE OUTPUT
[2021-03-01] MEDS ORDERED: ASPIRIN 81 MG TAB.CHEW ONE (17:21)
[2021-03-01] MEDS ORDERED: Z GUARD REMEDY 2 OZ OINT TP PRN (17:30)
[2021-03-01] MEDS ORDERED: MAGNESIUM HYDROXIDE 30 ML UDC PO PRN (17:30)
[2021-03-01] MEDS ORDERED: PIPERACILLIN /TAZOBACTAM 3.375 G in IV D5W 50 ML IV SCH (18:00)
--- NOTE | 2021-03-01 18:04 | NUR ---
SUPERVISOR SCENIC ARTS AT THE BEDSIDE
--- NOTE | 2021-03-01 18:13 | NUR ---
NO AVAILABLE BED YET PER NURSING SUP
[2021-03-01] MEDS ORDERED: ASPIRIN 81 MG TAB.CHEW PO ONE (19:00)
--- NOTE | 2021-03-01 19:30 | NUR ---
PATIENT RESTING IN BED, VSS, NO ACUTE DISTRESS NOTED. PATIENT LAC IV 18G INTACT. PT CONNECTED TO CARDIAC AND POX MONITOR.
[2021-03-01] MEDS ORDERED: VANCOMYCIN 1.5 GM in IV D5W 500ml IV ONE (21:00)
--- NOTE | 2021-03-01 21:00 | NUR ---
MRSA SWAB COLLECTED AND SENT TO LAB. PATIENT'S BELONGINGS LIST DONE.
--- NOTE | 2021-03-01 21:06 | NUR ---
REPORT GIVEN TO YUNIOR HENDRICKS
--- NOTE | 2021-03-01 21:27 | NUR ---
PT WAS TRANSFERRED TO 327 UNDER ACLS
[2021-03-01 21:30] VITALS: BP 103/49
[2021-03-01] MEDS ORDERED: MEROPENEM 500 MG in IV NS 0.9% 50 ML IV SCH (22:00)
--- NOTE | 2021-03-01 22:00 | NUR ---
ADMITTED FROM ED DUE TO AMS AND PATIENT PULLED OUT IV. FROM HOME, ALERT/ORIENTED X3, FORGETFUL, STABLE ON ROOM AIR, LUNG SOUNDS ARE CLEAR, ABDOMEN FIRM, HX OF ENLARGED LIVER AND HERNIA REPAIR, BAKER CATHETER PRESENT, HX OF BPH, DRAINING WITH CLOUDY AND ANDREW COLORED URINE. SKIN ASSESSMENT PERFORMED, REDNESS TO BUTTOCKS, LEFT HEEL REDNESS, PHOTOS TAKEN. WITH ORDERS OF VANCOMYCIN 1500 GM X1 AND MERREM. PATIENT RECEIVED ZOSYN FROM ED.
[2021-03-01] MEDS ORDERED: VANCOMYCIN 1 GM VIAL ONE ×2 (22:19→22:20)
[2021-03-01] MEDS: ACETAMINOPHEN 325 MG TABLET PO PRN (23:00)
[2021-03-01] MEDS ORDERED: MEROPENEM 500 MG VIAL IV ONE (23:45)
[2021-03-02] VITALS: BP 122/62
[2021-03-02] MEDS ORDERED: PIPERACILLIN /TAZOBACTAM 3.375 G in IV D5W 50 ML IV SCH
--- NOTE | 2021-03-02 00:30 | NUR ---
RN NOTES TROPONIN FROM 0.232 TO 2.504, NOTIFIED DR. FANG, NEW ORDER OF HEPARIN DRIP, NO BOLUS
[2021-03-02] MEDS ORDERED: HEPARIN INFUSION/D5W 500 ML IV PRN (01:00)
--- NOTE | 2021-03-02 01:30 | NUR ---
STARTED ON HEPARIN DRIP USING ACS PROTOCOL, WEIGHT 75 KG, HEPARIN DRIP AT 1000 UNITS/HR OR 20 ML/HR
[2021-03-02 04:00] VITALS: BP 117/59
--- NOTE | 2021-03-02 06:41 | NUR ---
RN NOTES ALERT/ORIENTED X3, FORGETFUL, ROOM AIR, 5/10 PAIN TO LEFT FOOT, TYLENOL 650 MG, HX OF LEFT FOOT WOUND, INCREASED TROPONIN 0.232 THEN WENT UP TO 2.504. NOTIFIED DR. FANG AND STARTED ON HEPARIN PROTOCOL USING ACS AT 1000 UNIT/HR OR 20 ML/HR, BAKER CATHETER RE-INSERTED IN ED, HX OF BPH, HEMATURIA, URINE OUTPUT BROWNISH, MADE AWARE.
--- NOTE | 2021-03-02 07:25 | NUR ---
RN NOTES PATIENT RESTING IN BED, AWAKE AND VERBALLY RESPONSIVE. A/O X2-3, ABLE TO MAKE NEEDS KNOWN. BREATHING EVEN AND UNLABORED, ON ROOM AIR. IV LINES INTACT AND PATENT. CURRENTLY ON HEPARIN INFUSION W/ SETTINGS PER PROTOCOL. BAKER CATH IN PLACE, DRAINING BLOOD-TINGED URINE, NO LARGE CLOTS NOR SEDIMENTS NOTED. SAFETY MEASURES IN PLACE. WILL CONTINUE TO MONITOR.
[2021-03-02 08:36] LABS: PHOSPHORUS 3.2 mg/dL (2.5-4.9)
[2021-03-02] MEDS ORDERED: ASPIRIN 325 MG TABLET PO SCH (09:00)
[2021-03-02] MEDS: ASPIRIN 81 MG TAB.CHEW PO SCH (09:07)
[2021-03-02] MEDS: PANTOPRAZOLE 40 MG VIAL IV SCH (09:07)
[2021-03-02] MEDS: METOPROLOL TARTRATE 50 MG TABLET PO SCH ×2 (09:07→20:15)
[2021-03-02] MEDS: ACETAMINOPHEN 325 MG TABLET PO PRN ×2 (09:08→17:36)
[2021-03-02 09:33] LABS: THYROID STIMULATING HORMONE 0.23 uIU/mL (0.358-3.74)
--- NOTE | 2021-03-02 10:06 | NUR ---
RN NOTES RECEIVED PTT RESULT AND UPDATED HEPARIN DOSING PER PROTOCOL. PHARMACY MADE AWARE. ORDERS NOTED AND RATE CHANGED. NXT PTT AT 1530 TODAY.
[2021-03-02] MEDS ORDERED: HEPARIN SODIUM, PORCINE 5000 UNITS/1 ML VIAL IV ONE (10:07)
--- NOTE | 2021-03-02 10:20 | NUR ---
RN NOTES PATIENT SEEN BY VLAD GUY, NAOMI, MADE AWARE OF PLAN OF CARE. RAILROAD INSPECTOR AWARE OF TRENDING TROPONIN.
[2021-03-02] MEDS: MEROPENEM 500 MG in IV NS 0.9% 50 ML IV SCH (11:05)
--- NOTE | 2021-03-02 16:11 | NUR ---
RN NOTES PATIENT W/ TIMED DRAW FOR PTT AT 1530; SPOKE W/ JOÃO FROM LAB, PER JOÃO, NO PHLEB TECH AT THIS TIME TO BE ABLE TO DRAW BLOOD AND WILL INCLUDE PTT W/ PATIENT'S PENDING BLOOD DRAW EARLIER TODAY.
--- NOTE | 2021-03-02 17:48 | NUR ---
RN NOTES PHLEB TECH AT BEDSIDE FOR BLOOD DRAW.
[2021-03-02 17:59] LABS: BASOPHILS % (AUTO) 0.6 % (0.0-2.0); EOSINOPHILS % (AUTO) 2.3 % (0.0-6.0); HEMATOCRIT 27 % (39-51); LYMPHOCYTES # (AUTO) 0.7 K/uL (0.8-4.8); LYMPHOCYTES % (AUTO) 13.5 % (20.0-44.0); MEAN CORPUSCULAR HGB CONC 34 g/dl (31.0-36.0); MEAN CORPUSCULAR VOLUME 90 fL (80-96); MONOCYTES # (AUTO) 0.6 K/uL (0.1-1.30); MONOCYTES % (AUTO) 11.8 % (2.0-12.0); NEUTROPHILS # (AUTO) 3.8 K/uL (1.8-8.9); NEUTROPHILS % (AUTO) 71.8 % (43.0-81.0); PLATELET COUNT (AUTO) 74 K/uL (150-450); RED BLOOD CELL COUNT(AUTO) 2.95 MIL/uL (4.5-6.0); WHITE BLOOD COUNT (AUTO) 5.2 K/uL (4.3-11.0)
[2021-03-02 18:27] LABS: BAND % (MANUAL) 2 % (0.0-5.0); EOSINOPHILS % (MANUAL) 2 % (0-4); LYMPHOCYTES % (MANUAL) 9 % (16-48); MONOCYTES % (MANUAL) 12 % (0-11.0); NEUTROPHILS % (MANUAL) 75 (42-76)
--- NOTE | 2021-03-02 18:47 | NUR ---
RN NOTES RECEIVED PTT RESULT OF 51.8. NO CHANGE PER HEPARIN PROTOCOL. CONTINUE SAME RATE OF 1200UNITS/HR, NEXT PTT 03/03/21 IN AM. PATIENT RESTING IN BED, NOT IN ACUTE DISTRESS. DUE MEDS GIVEN. BAKER CATH FLUSHED DIRECTED BY LEAD SHIPPER. NO CLOTS NOTED ON BAKER CATH. ENCOURAGED TO DRINK PLENTY OF FLUIDS DURING THE SHIFT. ASSISTED W/ ADLS TOLERATED. SAFETY MEASURES MAINTAINED. WILL ENDORSE TO ERGONOMICS CONSULTANT RN FOR KEV.
--- NOTE | 2021-03-02 19:20 | NUR ---
RN NOTE RECEIVED PATIENT IN BED RESTING ALERT ORIENTED X3 VERBALLY RESPONSIVE ON ROOM AIR IV SITE IS ON LEFT FOREARM AND RIGHT AC INTACT PATENT ON HEPARIN DRIP 1200 UNITE/HR,BAKER CATHETER IN PLACE URINE DRAINING BLOODY,SAFETY MEASURE IMPLEMENT BED IN LOW POSITION AND LOCKED CALL LIGHT WITHIN REACH CONTINUE TO MONITOR
[2021-03-02 20:00] VITALS: BP 115/58
[2021-03-03] VITALS: BP_SYST 104; BP_SYST 108; BP_DIAS 56; BP_DIAS 60
[2021-03-03] MEDS: MEROPENEM 500 MG in IV NS 0.9% 50 ML IV SCH ×2 (00:01→11:25)
[2021-03-03] MEDS: ACETAMINOPHEN 325 MG TABLET PO PRN ×4 (02:19→22:11)
--- NOTE | 2021-03-03 02:19 | NUR ---
RN NOTE ACETAMINOPHEN 650MG GIVEN FOR PAIN 3/10 CONTINUE TO MONITOR.
[2021-03-03 04:00] VITALS: BP 105/56
--- NOTE | 2021-03-03 06:36 | NUR ---
RN NOTE PATIENT REMAINS ALERT ORIENTED X3 VERBALLY RESPONSIVE ON ROOM AIR NO SOB NOT ACUTE DISTRESS NOTED,PATIENT IS ON HEPARIN DRIP 1200UNIT/HR IV SITE IS ON RIGHT AC AND LEFT FOREARM INTACT PATENT ALL DUE MEDS GIVEN MD ORDERED KEPT CLEAN AND DRY ALL THE TIME,BAKER CATHETER STILL IS HEMATURIA,KEPT CALL LIGHT WITHIN REACH ALL NEEDS MET ENDORSE NEXT COMING SHIFT FOR CONTINUATION OF CARE.
--- NOTE | 2021-03-03 07:41 | NUR ---
INVESTOR RELATIONS COORDINATOR OPENING NOTE PT IS ASLEEP IN BED, EASY TO AROUSE. ALERT AND ORIENTED X 3 WITH FORGETFULNESS. PT ON ROOM AIR, TOLERATING WELL. NO S/SX OF DISTRESS, NO SOB. BREATHING IS EVEN AND UNLABORED.PT WITH FC WITH HEMATURIA. PT WITH EXTERNAL STEEL PLACER READING SINUS RHYTHM 70'S. PT WITH IV ACCESS LFA#20 WITH HEPARIN INFUSING @ 1200 UNITS/HR. SAFETY MEASURES IN PLACE WITH BED LOCKED AT LOW POSITION, SIDE RAILS UP X 2. WILL CONTINUE TO MONITOR PATIENT THROUGHOUT SHIFT.
[2021-03-03 07:45] LABS: BASOPHILS % (AUTO) 0.6 % (0.0-2.0); HEMATOCRIT 24 % (39-51); HEMOGLOBIN 8.1 g/dL (13.5-17.5); LYMPHOCYTES # (AUTO) 0.5 K/uL (0.8-4.8); LYMPHOCYTES % (AUTO) 15.2 % (20.0-44.0); MEAN CORPUSCULAR HGB CONC 34 g/dl (31.0-36.0); MEAN CORPUSCULAR VOLUME 91 fL (80-96); MONOCYTES # (AUTO) 0.5 K/uL (0.1-1.30); MONOCYTES % (AUTO) 14.8 % (2.0-12.0); NEUTROPHILS # (AUTO) 2.1 K/uL (1.8-8.9); NEUTROPHILS % (AUTO) 66.4 % (43.0-81.0); PLATELET COUNT (AUTO) 64 K/uL (150-450); RED BLOOD CELL COUNT(AUTO) 2.66 MIL/uL (4.5-6.0); WHITE BLOOD COUNT (AUTO) 3.2 K/uL (4.3-11.0)
[2021-03-03 08:00] VITALS: BP 115/63
[2021-03-03 08:07] LABS: ALANINE AMINOTRANSFERASE 96 U/L (12-78); ALKALINE PHOSPHATASE 75 U/L (46-116); ASPARTATE AMINOTRANSFERASE 138 U/L (15-37); BILIRUBIN,TOTAL 0.8 mg/dL (0.2-1.0); CALCIUM, SERUM 7.5 mg/dL (8.5-10.1); CARBON DIOXIDE 20 mmol/L (21-32); CHLORIDE 103 mmol/L (98-107); CREATININE 2.2 mg/dL (0.6-1.3); GLUCOSE 109 mg/dL (74-106); MAGNESIUM 2.1 mg/dL (1.8-2.4); PHOSPHORUS 3.3 mg/dL (2.5-4.9); POTASSIUM 3.4 mmol/L (3.5-5.1); SODIUM SERUM 133 mmol/L (136-145); TOTAL PROTEIN, SERUM 5.9 g/dL (6.4-8.2); UREA NITROGEN, BLOOD 31 mg/dL (7-18)
--- NOTE | 2021-03-03 08:11 | NUR ---
WOUND CARE CONSULT: PT AGREED TO HAVE SKIN ASSESSMENT " SOON I FINISH TEXTING MY BOSS THAT I CANNOT WORK TODAY". PT FINISHED TEXTING, THEN REFUSED SKIN ASSESSMENT STATING HE WAS HUNGRY. WILL SEE PT PT CONDITION PERMITS. REVIEWED CHART, NURSING DOCUMENTATION AND PHOTOS WHICH INDICATE SACRAL INTACT DEEP TISSUE INJURY AND FOOT WOUNDS. DR JUNE NOTIFIED OF DPM CONSULT REQUEST. RECOMMENDATIONS MADE FOR SKIN PROTECTION. DISCUSSED WITH NURSING STAFF. MD IN AGREEMENT WITH PLAN OF CARE.
[2021-03-03] MEDS: ASPIRIN 81 MG TAB.CHEW PO SCH (08:43)
[2021-03-03] MEDS: PANTOPRAZOLE 40 MG VIAL IV SCH (08:43)
[2021-03-03] MEDS: POTASSIUM CHLORIDE 20 MEQ TAB.PRT.SR PO SCH ×3 (08:47→11:08)
[2021-03-03] MEDS: METOPROLOL TARTRATE 50 MG TABLET PO SCH ×3 (08:54→21:16)
[2021-03-03] MEDS ORDERED: ENOXAPARIN SODIUM 30 MG/0.3 ML DISP.SYRIN SQ SCH (09:00)
--- NOTE | 2021-03-03 09:00 | NUR ---
AUGER MILL OPERATOR NOTE DISCONTINUED HEPARIN INFUSION PER DR. FANG. ORDERS READ BACK AND CARRIED OUT.
[2021-03-03 10:06] LABS: THYROID STIMULATING HORMONE 0.824 uIU/mL (0.358-3.74)
[2021-03-03 12:00] VITALS: BP 101/50
--- NOTE | 2021-03-03 12:00 | NUR ---
COMMERCIAL SOLAR SALES CONSULTANT NOTE IRRIGATED BLADDER WITH 500CC OF STERILE WATER. NO BLOOD CLOTS NOTED ON OUTPUT. PT STILL WITH HEMATURIA. WILL CONTINUE TO IRRIGATE EVERY 4 HOURS PER MD ORDER.
[2021-03-03] MEDS: SOD FERRIC GLUC 125 MG in IV NS 0.9% 100 ML IV SCH (15:07)
[2021-03-03 16:00] VITALS: BP 110/50
--- NOTE | 2021-03-03 16:18 | NUR ---
UNIT ASSEMBLER NOTES PT WITH TEMPERATURE OF 100.0 COOLING MEASURES AND TYLENOL 650MG ADMINISTERED. WILL MONITOR AND ASSIST NEEDED.
--- NOTE | 2021-03-03 17:50 | NUR ---
TELE MS NOTE PT TEMP IS CURRENTLY 98.0 AFTER TYLENOL AND COOLING MEASURES ADMINISTERED.
[2021-03-03] MEDS: IV NS 0.9% 1,000 ML IV PRN (18:08)
--- NOTE | 2021-03-03 19:00 | NUR ---
CANDLE WRAPPING MACHINE OPERATOR CLOSING NOTE PT KEPT COMFORTABLE THROUGHOUT SHIFT. ALL NEEDS MET. PT ABLE TO MAKE NEEDS KNOWN. BAKER CATHETER PATENT AND DRAINING WITH BLOOD IN URINE. IRRIGATED BLADDER PER MD ORDER. SAFETY MEASURES MAINTAINED. NO SIGNIFICANT CHANGE IN PT CONDITION. WILL ENDORSE CONTINUITY OF CARE TO ONCOMING SHIFT.
--- NOTE | 2021-03-03 19:15 | NUR ---
LIGHT RAIL OPERATOR OPENING NOTES RECEIVED PT AWAKE IN BED, A/OX3, ABLE TO MAKE NEEDS KNOWN, WITH EASY FORGETFULNESS. HE DENIES PAIN AT THIS TIME. ON ROOM AIR AND TED. WELL. RESPIRATIONS EVEN/UNLABORED. F/C IN PLACE, WITH HEMATURIA STILL PRESENT, NO BLOOD CLOTS NOTED. IV SITE;l LFA INTACT/PATENT, RUNNING NS @100ML/HR. TELE MONITOR READING SR, HR 76. PT IN NO ACUTE DISTRESS. SAFETY MEASURES IN PLACE, BED IN LOWEST LOCKED POSITION, S/R UPX2, CALL LIGHT WITHIN REACH. WILL CONT TO MONITOR.
[2021-03-03 20:00] VITALS: BP 114/50
[2021-03-03] MEDS: CEFTRIAXONE 1 G in IV D5W 50 ML IV SCH (20:37)
[2021-03-03] MEDS ORDERED: VANCOMYCIN 1.25 GM in IV D5W 250 ML IV SCH (21:00)
[2021-03-03] MEDS: METRONIDAZOLE 500 MG TABLET PO SCH (21:13)
[2021-03-04] VITALS: BP 113/49
[2021-03-04 04:00] VITALS: BP 123/55
[2021-03-04] MEDS: ACETAMINOPHEN 325 MG TABLET PO PRN ×3 (04:39→19:34)
[2021-03-04] MEDS: METRONIDAZOLE 500 MG TABLET PO SCH ×3 (04:39→20:20)
[2021-03-04] MEDS: IV NS 0.9% 1,000 ML IV PRN ×2 (04:42→20:09)
--- NOTE | 2021-03-04 07:03 | NUR ---
ESTHETICIAN AND MANAGER MEDICAL SPA CLOSING NOTE PT RESTING IN BED, EASILY AROUSABLE TO STIMULI. HE DENIES ANY PAIN AT THIS TIME. ON ROOM AIR AND TED. WELL. NO SOB. F/C IN PLACE, WITH HEMATURIA NOW DIRECTOR OF COLLECTIONS AND ARCHIVES AND NO BLOOD CLOTS NOTED. F/C IRRIGATED ORDERED. TELE MONITOR READING SR, HR 75. NO ACUTE EVENTS DURING THE NIGHT. SAFETY MEASURES MAINTAINED. ALL NEEDS ATTENDED TO.
[2021-03-04 08:00] VITALS: BP 113/60
[2021-03-04 09:01] LABS: HEMATOCRIT 24 % (39-51); LYMPHOCYTES # (AUTO) 0.6 K/uL (0.8-4.8); LYMPHOCYTES % (AUTO) 17.8 % (20.0-44.0); MEAN CORPUSCULAR HGB CONC 33 g/dl (31.0-36.0); MEAN CORPUSCULAR VOLUME 91 fL (80-96); MONOCYTES # (AUTO) 0.4 K/uL (0.1-1.30); MONOCYTES % (AUTO) 13.3 % (2.0-12.0); NEUTROPHILS % (AUTO) 63.9 % (43.0-81.0); PLATELET COUNT (AUTO) 82 K/uL (150-450); RED BLOOD CELL COUNT(AUTO) 2.64 MIL/uL (4.5-6.0); WHITE BLOOD COUNT (AUTO) 3.1 K/uL (4.3-11.0)
[2021-03-04] MEDS: METOPROLOL TARTRATE 50 MG TABLET PO SCH ×2 (09:10→20:20)
[2021-03-04] MEDS: PANTOPRAZOLE 40 MG VIAL IV SCH (09:10)
[2021-03-04 10:04] LABS: ALANINE AMINOTRANSFERASE 90 U/L (12-78); ALBUMIN 2.2 g/dL (3.4-5.0); ALKALINE PHOSPHATASE 89 U/L (46-116); ASPARTATE AMINOTRANSFERASE 98 U/L (15-37); BILIRUBIN,TOTAL 0.6 mg/dL (0.2-1.0); CALCIUM, SERUM 7.5 mg/dL (8.5-10.1); CARBON DIOXIDE 17 mmol/L (21-32); CHLORIDE 104 mmol/L (98-107); GLUCOSE 168 mg/dL (74-106); MAGNESIUM 1.9 mg/dL (1.8-2.4); POTASSIUM 3.7 mmol/L (3.5-5.1); SODIUM SERUM 133 mmol/L (136-145); TOTAL PROTEIN, SERUM 6.3 g/dL (6.4-8.2); UREA NITROGEN, BLOOD 27 mg/dL (7-18)
[2021-03-04 10:11] LABS: CREATINE KINASE, TOTAL 786 U/L (39-308)
[2021-03-04] MEDS: SOD FERRIC GLUC 125 MG in IV NS 0.9% 100 ML IV SCH (14:00)
[2021-03-04 16:00] VITALS: BP 117/59
--- NOTE | 2021-03-04 19:15 | NUR ---
CLAIMS COORDINATOR OPENING NOTES PT AWAKE IN BED, ABLE TO VERBALIZE ALL NEEDS. NO C/O PAIN AT THIS TIME. ON ROOM AIR AND TED. WELL. RESPIRATIONS EVEN/UNLABORED. F/C IN PLACE, WITH HEMATURIA, NO BLOOD CLOTS NOTED. IV SITE R-AC INTACT/PATENT, RUNNING NS @100ML/HR. TELE MONITOR READING SR, HR 76. PT IN NO ACUTE DISTRESS. SAFETY MEASURES IN PLACE, BED IN LOWEST LOCKED POSITION, S/R UPX2, CALL LIGHT WITHIN REACH. WILL CONT TO MONITOR.
[2021-03-04] MEDS: CEFTRIAXONE 1 G in IV D5W 50 ML IV SCH (20:13)
[2021-03-04 20:26] VITALS: BP 131/95
[2021-03-05] VITALS (8 sets, daily range): BP systolic 101–126; BP diastolic 48–65
[2021-03-05] MEDS: ACETAMINOPHEN 325 MG TABLET PO PRN ×3 (03:06→22:21)
[2021-03-05] MEDS: METRONIDAZOLE 500 MG TABLET PO SCH ×3 (05:18→22:04)
[2021-03-05] MEDS: IV NS 0.9% 1,000 ML IV PRN (06:16)
--- NOTE | 2021-03-05 07:03 | NUR ---
SMOKED MEAT PREPARER CLOSING NOTE PT RESTING IN BED, EASILY AROUSABLE TO STIMULI. RESPIRATIONS EVEN/UNLABORED. F/C IN PLACE, WITH HEMATURIA, NOW LIP CUTTER AND SCORER RED IN COLOR. F/C IRRIGATED ORDERED. TELE MONITOR READING SR, HR 75. PT IN NO ACUTE DISTRESS. SAFETY MEASURES MAINTAINED. ALL NEEDS ATTENDED TO.
[2021-03-05 07:09] LABS: BASOPHILS % (AUTO) 0.9 % (0.0-2.0); EOSINOPHILS % (AUTO) 4.3 % (0.0-6.0); HEMATOCRIT 23 % (39-51); HEMOGLOBIN 7.7 g/dL (13.5-17.5); LYMPHOCYTES # (AUTO) 0.5 K/uL (0.8-4.8); LYMPHOCYTES % (AUTO) 21.5 % (20.0-44.0); MEAN CORPUSCULAR HGB CONC 34 g/dl (31.0-36.0); MEAN CORPUSCULAR VOLUME 91 fL (80-96); MONOCYTES # (AUTO) 0.4 K/uL (0.1-1.30); MONOCYTES % (AUTO) 19.8 % (2.0-12.0); NEUTROPHILS # (AUTO) 1.2 K/uL (1.8-8.9); NEUTROPHILS % (AUTO) 53.5 % (43.0-81.0); PLATELET COUNT (AUTO) 58 K/uL (150-450); RED BLOOD CELL COUNT(AUTO) 2.53 MIL/uL (4.5-6.0); WHITE BLOOD COUNT (AUTO) 2.3 K/uL (4.3-11.0)
--- NOTE | 2021-03-05 07:16 | NUR ---
RN NOTES PT AWAKE IN BED, A/OX3, VERBALLY RESPONSIVE AND ABLE TO MAKE NEEDS KNOWN. ON ROOM AIR RESPIRATIONS EVEN AND UNLABORED. F/C IN PLACE, HEMATURIA STILL, NO BLOOD CLOTS NOTED. IV SITE INTACT AND PATENT, IVF INFUSING @100ML/HR. ON TELE MONITOR, READING OF SR, HR IN THE 70'S-80'S. SAFETY MEASURES IN PLACE: BED IN LOWEST LOCKED POSITION, S/R UPX2, CALL LIGHT WITHIN REACH. WILL CONTINUE TO MONITOR.
[2021-03-05 07:44] LABS: ALANINE AMINOTRANSFERASE 72 U/L (12-78); ALBUMIN 1.9 g/dL (3.4-5.0); ALKALINE PHOSPHATASE 99 U/L (46-116); ASPARTATE AMINOTRANSFERASE 62 U/L (15-37); BILIRUBIN,TOTAL 0.4 mg/dL (0.2-1.0); CALCIUM, SERUM 7.4 mg/dL (8.5-10.1); CARBON DIOXIDE 17 mmol/L (21-32); CHLORIDE 106 mmol/L (98-107); CREATININE 1.9 mg/dL (0.6-1.3); GLUCOSE 117 mg/dL (74-106); MAGNESIUM 1.8 mg/dL (1.8-2.4); PHOSPHORUS 3.4 mg/dL (2.5-4.9); POTASSIUM 3.6 mmol/L (3.5-5.1); SODIUM SERUM 134 mmol/L (136-145); TOTAL PROTEIN, SERUM 5.5 g/dL (6.4-8.2); UREA NITROGEN, BLOOD 25 mg/dL (7-18)
--- NOTE | 2021-03-05 07:53 | NUR ---
RN NOTES MOLDING SUPERVISOR NURSES AT BEDSIDE; INFORMED ABOUT CARDIAC CATH PROCEDURE. PATIENT ASKED TO SPEAK W/ GAMING HOST ABOUT PROCEDURE BEFORE SIGNING CONSENT. MOLDING SUPERVISOR NURSES AWARE.
[2021-03-05 08:13] LABS: CREATINE KINASE, TOTAL 325 U/L (39-308)
[2021-03-05] MEDS: PANTOPRAZOLE 40 MG TABLET.DR PO SCH (08:30)
[2021-03-05] MEDS: METOPROLOL TARTRATE 50 MG TABLET PO SCH ×2 (08:30→22:04)
--- NOTE | 2021-03-05 08:55 | NUR ---
RN NOTES SPOKE W/ JEAN-PIERRE FROM AUTOMOTIVE PAINTER HELPER. PER JEAN-PIERRE, DR. TATE WILL TALK TO THE PATIENT AT NOON TIME AND TO KEEP PATIENT NPO AT THIS TIME FOR POSSIBLE PROCEDURE LATER.
[2021-03-05 09:36] LABS: EOSINOPHILS % (MANUAL) 3 % (0-4); LYMPHOCYTES % (MANUAL) 20 % (16-48); MONOCYTES % (MANUAL) 14 % (0-11.0); NEUTROPHILS % (MANUAL) 63 (42-76)
--- NOTE | 2021-03-05 10:19 | NUR ---
RN NOTES BAKER CATH FLUSHED W/ 100CC NS. PROCEDURE TOLERATED WELL BY PATIENT.
[2021-03-05] MEDS: SOD FERRIC GLUC 125 MG in IV NS 0.9% 100 ML IV SCH (14:00)
[2021-03-05] MEDS ORDERED: LIDOCAINE HCL/MPF 1% 30 ML VIAL IJ ONE (14:44)
[2021-03-05] MEDS ORDERED: IV NS 0.9% 1,000 ML ONE (14:44)
[2021-03-05] MEDS ORDERED: IODIXANOL 150 ML IV ONE (14:44)
--- NOTE | 2021-03-05 14:45 | NUR ---
RN NOTES PATIENT PICKED UP FOR CARDIAC CATH PROCEDURE; CONSENT FORMS SIGNED BY PATIENT. PICKED UP BY 2 POCKET MAKER NURSES VIA GURNEY.
[2021-03-05] MEDS ORDERED: FENTANYL PF 100MCG/2ML AMPUL ONE (14:58)
[2021-03-05] MEDS ORDERED: MIDAZOLAM HCL 2 MG/2ML VIAL ONE (14:58)
--- NOTE | 2021-03-05 15:00 | NUR ---
RN NOTES UNABLE TO GIVE FERLECIT MEDICATION IS NOT YET DELIVERED AND PATIENT IS IN TOOL DESIGN DRAFTER FOR PROCEDURE.
--- NOTE | 2021-03-05 15:50 | NUR ---
ICU/RN PT POST NAVAL SCIENCE TEACHER .RIGHT FEMORAL ACCESS.DRY CLEAN DRESSING ON .V/S STABLE,AFEBRILE.NO PAIN REPORTED AT THIS TIME .CONTINUE MONITORING.
--- NOTE | 2021-03-05 18:30 | NUR ---
ICU/RN PT EATS 100% FROM DINNER TRAY.PT IS STABLE.TRANSFERRED TO M/S UNIT IN STABLE CONDITION .
--- NOTE | 2021-03-05 18:44 | NUR ---
RN NOTES PATIENT RETURNED TO UNIT FROM ICU VIA PATIENT'S OWN BED, ACCOMPANIED BY 2 ICU NURSES. BLE KEPT STRAIGHT UNTIL 1999 TONIGHT; IVF INFUSING AT 50CC/HR PER ADULT FAMILY HOME PROGRAM MANAGER ENDORSEMENT. S/P LEFT HEART CATH, DIAGNOSTIC ONLY.
[2021-03-05] MEDS: CEFTRIAXONE 1 G in IV D5W 50 ML IV SCH (22:03)
[2021-03-06] VITALS: BP 133/53
[2021-03-06 04:00] VITALS: BP 131/53
[2021-03-06] MEDS: METRONIDAZOLE 500 MG TABLET PO SCH ×2 (06:09→13:14)
[2021-03-06] MEDS: ACETAMINOPHEN 325 MG TABLET PO PRN ×2 (06:36→13:29)
[2021-03-06 06:59] LABS: BASOPHILS % (AUTO) 0.7 % (0.0-2.0); EOSINOPHILS % (AUTO) 3.7 % (0.0-6.0); HEMATOCRIT 24 % (39-51); HEMOGLOBIN 7.9 g/dL (13.5-17.5); LYMPHOCYTES # (AUTO) 0.5 K/uL (0.8-4.8); LYMPHOCYTES % (AUTO) 21.6 % (20.0-44.0); MEAN CORPUSCULAR HGB CONC 34 g/dl (31.0-36.0); MEAN CORPUSCULAR VOLUME 90 fL (80-96); MONOCYTES # (AUTO) 0.5 K/uL (0.1-1.30); MONOCYTES % (AUTO) 21.3 % (2.0-12.0); NEUTROPHILS # (AUTO) 1.2 K/uL (1.8-8.9); NEUTROPHILS % (AUTO) 52.7 % (43.0-81.0); PLATELET COUNT (AUTO) 69 K/uL (150-450); RED BLOOD CELL COUNT(AUTO) 2.61 MIL/uL (4.5-6.0); WHITE BLOOD COUNT (AUTO) 2.3 K/uL (4.3-11.0)
--- NOTE | 2021-03-06 07:25 | NUR ---
EMT/DISPATCHER CLOSING NOTES PT AWAKE IN BED, ALERT/ORIENTED X 3, PT ABLE TO MAKE NEEDS KNOWN. PT STABLE ON RA, NO S/S OF DISTRESS OR SOB NOTED, BREATHING EVEN AND UNLABORED. PT ON EXTERNAL COMPONENT DESIGN ENGINEER READING SINUS RHYTHM, HR: 64. BAKER CATH IN PLACE, IRRIGATED WITH NS @4 HOURS, URINE WITH HEMATURIA BUT NO BLOOD CLOTS SEEN. RIGHT AC #18G INTACT AND RUNNING NS @ 100 ML/HR. MEDICATION GIVEN ORDERED, PT NEEDS MET THROUGHOUT SHIFT. SAFETY MEASURES IN PLACE: CALL LIGHT WITHIN REACH, SIDE RAILS UP X 2, BED LOCKED IN LOW POSITION, BED ALARM ON. ENDORSED TO DAY SHIFT NURSE FOR CONTINUITY OF CARE
--- NOTE | 2021-03-06 07:30 | NUR ---
HEM MARKER OPENING NOTES PT AWAKE IN BED, AXOX3, PATIENT ON ROOM AIR, NO RESPIRATORY DISTRESS NOTED AT THIS TIME. BAKER CATHETER IN PLACE, WITH HEMATURIA, NO BLOOD CLOTS NOTED. IV SITE RAC #18G , RUNNING NS@100CC/HR, LEFT WRIST #18G SL. INTACT AND PATENT. EXTERNAL TELE MONITOR IN PLACE AND SHOWS RHYTHM SR @ 68. PT IN NO ACUTE DISTRESS. SAFETY MEASURES PROVIDED; BED IN LOWEST BED LOCKED, SIDE RAILS UPX2, CALL LIGHT WITHIN REACH. WILL CONT TO MONITOR.
[2021-03-06 08:15] VITALS: BP 110/51
[2021-03-06] MEDS: PANTOPRAZOLE 40 MG TABLET.DR PO SCH (08:15)
[2021-03-06] MEDS: METOPROLOL TARTRATE 50 MG TABLET PO SCH (08:26)
[2021-03-06 08:31] LABS: CALCIUM, SERUM 7.3 mg/dL (8.5-10.1); CARBON DIOXIDE 15 mmol/L (21-32); CHLORIDE 107 mmol/L (98-107); CREATININE 1.9 mg/dL (0.6-1.3); GLUCOSE 117 mg/dL (74-106); POTASSIUM 3.8 mmol/L (3.5-5.1); SODIUM SERUM 135 mmol/L (136-145); UREA NITROGEN, BLOOD 23 mg/dL (7-18)
[2021-03-06 08:32] LABS: ALANINE AMINOTRANSFERASE 66 U/L (12-78); ALKALINE PHOSPHATASE 103 U/L (46-116); ASPARTATE AMINOTRANSFERASE 45 U/L (15-37); BILIRUBIN,TOTAL 0.4 mg/dL (0.2-1.0); MAGNESIUM 1.7 mg/dL (1.8-2.4); PHOSPHORUS 3.5 mg/dL (2.5-4.9); TOTAL PROTEIN, SERUM 5.6 g/dL (6.4-8.2)
--- NOTE | 2021-03-06 09:40 | NUR ---
RN NOTE RECEIVED CALL FROM LAB FROM [facility] REGARDING PATIENT MG LEVEL 1.7. NOTIFY TO PHARMACY AND ADMINISTERED MED MAG-OXIDE 400MG PER ORDER.
[2021-03-06 09:42] LABS: LYMPHOCYTES % (MANUAL) 11 % (16-48); MONOCYTES % (MANUAL) 17 % (0-11.0); NEUTROPHILS % (MANUAL) 72 (42-76)
[2021-03-06] MEDS ORDERED: MAGNESIUM OXIDE 400 MG TABLET PO ONE (10:00)
[2021-03-06] MEDS ORDERED: LEVO750T46 PO (10:51)
[2021-03-06] MEDS ORDERED: METR500T PO (10:51)
[2021-03-06 11:50] VITALS: BP 114/56
[2021-03-06] MEDS: SOD FERRIC GLUC 125 MG in IV NS 0.9% 100 ML IV SCH (14:00)
[2021-03-06 16:21] VITALS: BP 115/52
--- NOTE | 2021-03-06 18:05 | NUR ---
RN DISCHARGED NOTE PATIENT DISCHARGED HOME IN STABLE CONDITION. PATIENT A/O X 4, ABLE TO MAKE NEEDS KNOWN. AMBULATORY WITH ASSISTANCE. VITAL SIGNS TAKEN, STABLE AND RECORDED. PHOTOS OF SKIN ISSUES TAKEN AND FILED IN HIS CHART. ALL BELONGINGS CHECKED AND ALL ACCOUNTED FOR. IV ACCESS ON RIGHT AC AND LFA REMOVED, NO ACTIVE BLEEDING NOTED AND APPLIED DRY DRESSING AT SITES. HEALTH TEACHINGS/DISCHARGE INSTRUCTIONS GIVEN TO PATIENT AND RUSTY, BOTH VERBALIZED UNDERSTANDING. ANTIBIOTIC PRESCRIPTION PO GIVEN TO PATIENTAND . PATIENT LEFT UNIT AT 1750 VIA WHEELCHAIR ACCOMPANIED BY MADELIN TELLO AND . MD AND CHARGE NURSE AWARE OF DISCHARGE.
== END 2021-03-06 17:55 | disposition home or self-care (01) | DRG 871 ==
LOC: ER 15:09 → TELE 20:50 → ICU 03-05 15:51 → MED 03-05 18:23 → TELE 03-06 00:18
PROVIDERS: ADMIT Registered Nurse
PROC: 4A023N7 Measurement of Cardiac Sampling and Pressure, Left Heart, Percutaneous Approach (ICD-10-PCS; principal; 2021-03-05)
PROC: B211YZZ Fluoroscopy of Multiple Coronary Arteries using Other Contrast (ICD-10-PCS; 2021-03-05)
DX: A41.9 Sepsis, unspecified organism (principal); G92.8 Other toxic encephalopathy; N17.0 Acute kidney failure with tubular necrosis; I21.A1 Myocardial infarction type 2; J15.9 Unspecified bacterial pneumonia; E87.1 Hypo-osmolality and hyponatremia; D61.818 Other pancytopenia; N13.6 Pyonephrosis; A04.9 Bacterial intestinal infection, unspecified; B35.1 Tinea unguium; E87.6 Hypokalemia; E66.9 Obesity, unspecified; E78.5 Hyperlipidemia, unspecified; I10 Essential (primary) hypertension; K21.9 Gastro-esophageal reflux disease without esophagitis; K74.60 Unspecified cirrhosis of liver; I25.10 Atherosclerotic heart disease of native coronary artery without angina pectoris; M21.41 Flat foot [pes planus] (acquired), right foot; M21.42 Flat foot [pes planus] (acquired), left foot; Z20.822 Contact with and (suspected) exposure to COVID-19; Z79.82 Long term (current) use of aspirin; Z68.25 Body mass index [BMI] 25.0-25.9, adult; R31.9 Hematuria, unspecified; R74.01 Elevation of levels of liver transaminase levels; B96.20 Unspecified Escherichia coli [E. coli] as the cause of diseases classified elsewhere; N40.0 Benign prostatic hyperplasia without lower urinary tract symptoms; D75.839 Thrombocytosis, unspecified; L84 Corns and callosities; M20.41 Other hammer toe(s) (acquired), right foot; M20.42 Other hammer toe(s) (acquired), left foot; E11.42 Type 2 diabetes mellitus with diabetic polyneuropathy; D69.6 Thrombocytopenia, unspecified; D64.9 Anemia, unspecified; E11.51 Type 2 diabetes mellitus with diabetic peripheral angiopathy without gangrene; Z87.440 Personal history of urinary (tract) infections; Z87.891 Personal history of nicotine dependence; Z90.79 Acquired absence of other genital organ(s)
CPT/HCPCS: 36415; 36600; 71045-TC; 76770-TC; 80048-TC; 80053-TC; 80061-TC; 80076-TC; 80202-TC; 81001; 82550-TC; 82553; 82728-TC; 82803-TC; 83540-TC; 83605-TC; 83735-TC; 84100-TC; 84439-TC; 84443-TC; 84484-TC; 85025-TC; 85730-TC; 87040-TC; 87081-TC; 87086-TC; 87186-TC; 93307-TC; 97110-TC; 97116-TC; 97530-TC; A4217; C1887; C1894; C9113; C9803; G0378; G0500; J0696; J1644; J2185; J2250; J2543; J2916; J3010; J3370; J3490; J7030; J7050; J7060; Q9967

== ENCOUNTER 2022-04-02 01:33 | Inpatient (IN) | payer BC ==
[~2022-04-02] VITALS: Ht 180.3 cm; Wt 74.8 kg
[~2022-04-02 01:33] MED LIST changes: -CEFE1PIG3 IV; +LEVO750T46 PO; +METR500T PO; -MUPI22OI7 TP
--- NOTE | 2022-04-02 01:58 | NUR ---
SEEN BY DR CONTEH AT BEDSIDE
--- NOTE | 2022-04-02 01:58 | NUR ---
XRAY AT BEDSIDE
[2022-04-02] MEDS ORDERED: ACETAMINOPHEN 325 MG TABLET PO ONE (02:00)
[2022-04-02] MEDS ORDERED: IV NS 0.9% 500 ML BAG IV ONE (02:00)
[2022-04-02] MEDS ORDERED: MAGNESIUM HYDROXIDE 30 ML UDC PO PRN (02:30)
[2022-04-02] MEDS ORDERED: ONDANSETRON HCL/PF 4 MG/2 ML VIAL IVP PRN (02:30)
[2022-04-02] MEDS ORDERED: ZOLPIDEM TARTRATE 5 MG TABLET PO PRN (02:30)
[2022-04-02] MEDS ORDERED: ACETAMINOPHEN 325 MG TABLET PO PRN (02:30)
[2022-04-02] MEDS ORDERED: MAG HYDROX/AL HYDROX/SIMETH 30 ML UDC PO PRN (02:30)
[2022-04-02] MEDS ORDERED: Z GUARD REMEDY 4 OZ OINT TP PRN (02:30)
--- NOTE | 2022-04-02 02:31 | NUR ---
IV CANNULA G18 INSERTED ON RIGHT INNER FA. BLOOD DRAWN AND SENT TO LAB
--- NOTE | 2022-04-02 02:32 | NUR ---
COVID AND INFLUENZA SWAB SENT TO LAB
--- NOTE | 2022-04-02 02:32 | NUR ---
URINE SPECIMEN SENT TO LAB
[2022-04-02] MEDS ORDERED: ACETAMINOPHEN ES 500 MG TABLET ONE (02:34)
[2022-04-02 02:42] LABS: BASOPHILS % (AUTO) 0.6 % (0.0-2.0); EOSINOPHILS % (AUTO) 0.5 % (0.0-6.0); HEMATOCRIT 24 % (39-51); HEMOGLOBIN 8.1 g/dL (13.5-17.5); LYMPHOCYTES # (AUTO) 0.3 K/uL (0.8-4.8); LYMPHOCYTES % (AUTO) 4.9 % (20.0-44.0); MEAN CORPUSCULAR HGB CONC 34 g/dl (31.0-36.0); MEAN CORPUSCULAR VOLUME 89 fL (80-96); MONOCYTES # (AUTO) 0.5 K/uL (0.1-1.30); MONOCYTES % (AUTO) 9.4 % (2.0-12.0); NEUTROPHILS # (AUTO) 4.7 K/uL (1.8-8.9); NEUTROPHILS % (AUTO) 84.6 % (43.0-81.0); PLATELET COUNT (AUTO) 112 K/uL (150-450); WHITE BLOOD COUNT (AUTO) 5.5 K/uL (4.3-11.0)
[2022-04-02 02:48] LABS: CALCIUM, SERUM 8.3 mg/dL (8.5-10.1); CARBON DIOXIDE 13 mmol/L (21-32); CHLORIDE 100 mmol/L (98-107); CREATININE 3.2 mg/dL (0.6-1.3); GLUCOSE 118 mg/dL (74-106); POTASSIUM 4.2 mmol/L (3.5-5.1); SODIUM SERUM 128 mmol/L (136-145); UREA NITROGEN, BLOOD 60 mg/dL (7-18)
[2022-04-02 03:01] LABS: ALANINE AMINOTRANSFERASE 18 U/L (12-78); ALBUMIN 2.9 g/dL (3.4-5.0); ALKALINE PHOSPHATASE 193 U/L (46-116); ASPARTATE AMINOTRANSFERASE 21 U/L (15-37); BILIRUBIN,DIRECT 0.4 mg/dL (0.0-0.2); BILIRUBIN,TOTAL 0.9 mg/dL (0.2-1.0); TOTAL PROTEIN, SERUM 7.5 g/dL (6.4-8.2)
[2022-04-02 03:30] LABS: BILIRUBIN,URINE NEGATIVE (NEGATIVE); COLOR,URINE YELLOW (YELLOW); LEUKOCYTE ESTERASE ,URINE 2+ (NEGATIVE); NITRITE, URINE POSITIVE (NEGATIVE); PROTEIN,URINE TRACE mg/dl (NEGATIVE); UGLUCOSE NEGATIVE (NEGATIVE); UROBILINOGEN,URINE 0.2 EU/dL (0.2)
[2022-04-02 03:45] LABS: RBC,URINE 21-50 /HPF (0-2)
[2022-04-02 03:46] LABS: BACTERIA,URINE Many /HPF (None Seen); SQUAMOUS EPITHELIAL CELL,UR Few /HPF (None Seen)
[2022-04-02] MEDS ORDERED: CEFTRIAXONE 1GM BAG (ER ONLY) 1 GM/50 ML PIGGYBACK IV ONE (05:00)
[2022-04-02] MEDS ORDERED: CEFTRIAXONE 1GM BAG (ER ONLY) 50 ML IV ONE (05:06)
--- NOTE | 2022-04-02 05:20 | NUR ---
REPOSITIONED COMFORTABLY, NEEDS ATTENDED
--- NOTE | 2022-04-02 07:15 | NUR ---
RECEIVED PT FROM THANG MOJICA PT AWAKE AND FALLOW COMMAND RESP DARRELLN DAYANA FOR ADMITION ROOM
--- NOTE | 2022-04-02 07:20 | NUR ---
REPORT GIVEN TO YUNIOR CARDENAS
[2022-04-02] MEDS ORDERED: PANTOPRAZOLE 40 MG TABLET.DR PO ONE (08:26)
[2022-04-02] MEDS: PANTOPRAZOLE 40 MG TABLET.DR PO SCH (08:26)
--- NOTE | 2022-04-02 08:35 | NUR ---
ROOM 326-2
--- NOTE | 2022-04-02 08:39 | NUR ---
HAND OFF ALLEN. Lorin MOJICA
--- NOTE | 2022-04-02 09:50 | NUR ---
RN NOTE- PT ARRIVED FROM ED FOR ADMISSION. ADMIT FOR UTI / SEPSIS/LT FOOT ULCER. BEGIN ADMISSION PROCESS
--- NOTE | 2022-04-02 09:51 | NUR ---
OVEN DRIER TENDER NOTE- 71 Y/O MALE BROUGHT INTO ED BY FAMILY FOR WEAKNESS / GENERAL MALAISE FOR SEVERAL DAYS. PT ALSO HAS FOOT ULCER TO LT FOOT AND OPEN AREA TO RT HALLUX RT FOOT. PT IS AOX4, CALM , INTERACTIVE AND AFFECT APPROPRIATE. HE HAS ALLERGY TO SOYBEANS. VS - BP-126/67, HR TELE AT SR-80, RR-20, T- 98.3 AND 02 SATS AT 99% RA. CHEST CLEAR TO AUSCULTATION, ABD SOFT NT ND BS POSITIVE THROUGHOUT, NO GUARDING, NO RIGIDITY. LEFT FOOT W CELLULITIS AND OPEN AREA LATERAL LEFT FOOT AT TALUS AND HEEL, POSITIVE EDEMA, ERYTHEMA AND PURULENCE NOTED. PITTING EDEMA +2 TO BLE. RT HALLUX W OPEN AREA TO LATERAL ASPECT. BOTH FEET CLEANED W NS, PETROLEUM GAUZE APPLIED, WRAPPED W KERLIX, WOUND CONSULT ORDERED, PT ORDERED. IVF NS AT 75/HR INFUSING TO BETTE #20G. PT W PAIN, NORCO 5 MG ORDERED. AWAITING MD SPANN AND ORDERS. SIDE RAILS UP, BED LOCKED, CALL LIGHT IN REACH. PT COVID NEG. HAS HAD PNA AND FLU VACCS. BAKER CATHETER IN PLACE DRAINING CLEAR UA TO GRAVITY. BAG REPLACED OLD ONE LEAKED. MONITOR / ASSIST
[2022-04-02] MEDS ORDERED: CIPR500T5 PO (10:37)
[2022-04-02] MEDS ORDERED: LACT10SO3 PO (10:37)
[2022-04-02] MEDS ORDERED: FURO40TA5 PO (10:37)
[2022-04-02] MEDS: HYDROCODONE/APAP 5/325MG TABLET PO PRN ×2 (11:27→15:32)
[2022-04-02] MEDS: IV NS 0.9% 1,000 ML IV PRN (14:04)
[2022-04-02] MEDS: LACTULOSE 10 G/15 ML UDC (PYXIS) PO SCH ×2 (15:36→21:04)
[2022-04-02 16:00] VITALS: BP 130/64
--- NOTE | 2022-04-02 18:41 | NUR ---
RN CLOSING NOTE- PT IN BED RESTING QUIETLY, VS STABLE, BAKER CATHETER W 450 OUTPUT. USED BSC FOR SMALL BM AFTER DINNER. DRESSING CHANGES COMPLETED TO BOTH FEET. MEDS PER ORDERS. IVF INFUSING NS AT 75/HR. SIDE RAILS UP, CALL LIGHT CLOSE, BED LOCKED. MONITOR ASSIST
[2022-04-02 20:00] VITALS: BP 118/57
--- NOTE | 2022-04-02 20:03 | NUR ---
LAMINATOR OPENING NOTE PATIENT SLEEPING IN BED, EASILY AWAKENED, PT ALERT/ORIENTED X 4, PT ABLE TO MAKE NEEDS KNOWN. PATIENT STABLE ON RA, NO S/S OF DISTRESS OR SOB NOTED, BREATHING EVEN AND UNLABORED. PATIENT ON EXTERNAL SPA TECHNICIAN READING SINUS RHYTHM, HR: 77. IV ACCESS ON LFA #20G INTACT AND INFUSING NS @ 75 ML/HR. PATIENT NOTED WITH BAKER CATHETER, DRAINING ANDREW/TEA COLORED URINE BY GRAVITY. SAFETY MEASURES IN PLACE: CALL LIGHT WITHIN REACH, SIDE RAILS UP X 2, BED LOCKED IN LOWEST POSITION, HOB ELEVATED, BED ALARM ON. WILL CONTINUE TO MONITOR PATIENT
[2022-04-03] VITALS (10 sets, daily range): BP systolic 119–149; BP diastolic 54–75
[2022-04-03] MEDS: LACTULOSE 10 G/15 ML UDC (PYXIS) PO SCH ×4 (02:41→21:04)
[2022-04-03] MEDS: IV NS 0.9% 1,000 ML IV PRN (03:15)
[2022-04-03] MEDS: CEFTRIAXONE 1 G in IV D5W 50 ML IV SCH (04:58)
[2022-04-03] MEDS: HYDROCODONE/APAP 5/325MG TABLET PO PRN ×3 (05:03→20:00)
--- NOTE | 2022-04-03 06:41 | NUR ---
HEADER UP CLOSING NOTE PATIENT SLEEPING IN BED, EASILY AWAKENED, PT ALERT/ORIENTED X 4, PT ABLE TO MAKE NEEDS KNOWN. PATIENT STABLE ON RA, NO S/S OF DISTRESS OR SOB NOTED, BREATHING EVEN AND UNLABORED. PATIENT ON EXTERNAL HOOP PUNCH AND COILER OPERATOR HELPER READING SINUS RHYTHM, HR: 79. IV ACCESS ON LFA #20G INTACT AND INFUSING NS @ 75 ML/HR. PATIENT NOTED WITH BAKER CATHETER, DRAINING ANDREW/TEA COLORED URINE BY GRAVITY, 1100 ML OUTPUT. NO SIGNIFICANT CHANGES THIS SHIFT, PATIENT SLEPT WELL ALL NIGHT, MEDICATIONS GIVEN ORDERED, PT NEEDS MET THROUGHOUT SHIFT. SAFETY MEASURES IN PLACE: CALL LIGHT WITHIN REACH, SIDE RAILS UP X 2, BED LOCKED IN LOWEST POSITION, HOB ELEVATED, BED ALARM ON. WILL ENDORSE TO DAYSHIFT RN FOR CONTINUITY OF CARE
--- NOTE | 2022-04-03 07:00 | NUR ---
EVENT CREW TECHNICIAN OPENING NOTES PATIENT LAYING IN BED, A/O X 4, ABLE TO MAKE NEEDS KNOWN, TOLERATING WELL ON ROOM AIR WITH NO S/S RESPIRATORY DISTRESS. NO COMPLAINTS OF PAIN OR DISCOMFORT AT THIS TIME. TELE MONITOR IN PLACE READING SR 97 WITH PVCs. LFA # 20 IV CLEAN, INTACT, INFUSING NS @ 75 ML/HR. BAKER CATHETER IN PLACE DRAINING CLEAR ANDREW COLORED URINE TO GRAVITY. SAFETY MEASURES IN PLACE: BED IN LOWEST LOCKED POSITION, SIDE RAILS UP X 2, CALL LIGHT WITHIN REACH. WILL CONTINUE TO MONITOR.
--- NOTE | 2022-04-03 07:03 | NUR ---
WOUND CARE CONSULT: PT PRESENTS WITH SACRAL DEEP TISSUE INJURY IN EVOLUTION WELL FOOT WOUNDS, PRESENT ON ADMISSION. DR JUNE TO BE CALLED THIS AM FOR FOOT WOUNDS. RECOMMENDATIONS MADE FOR SKIN PROTECTION AND SACRAL WOUND CARE. DISCUSSED WITH NURSING STAFF. PT STATES " I NEED TO BE ON COMMODE NOW". PT WAS ASSISTED TO COMMODE BY NURSING STAFF. OLIVIA TREVINO NOTED. IN AGREEMENT WITH PLAN OF CARE. Addendum: 04/03/22 at 0705 by LINH MATA WNDNU Amended: Links added.
[2022-04-03] MEDS: PANTOPRAZOLE 40 MG TABLET.DR PO SCH (08:16)
[2022-04-03 08:43] LABS: CALCIUM, SERUM 7.9 mg/dL (8.5-10.1); CARBON DIOXIDE 12 mmol/L (21-32); CHLORIDE 105 mmol/L (98-107); CREATININE 3.1 mg/dL (0.6-1.3); GLUCOSE 116 mg/dL (74-106); MAGNESIUM 1.9 mg/dL (1.8-2.4); PHOSPHORUS 4.9 mg/dL (2.5-4.9); POTASSIUM 4.1 mmol/L (3.5-5.1); SODIUM SERUM 132 mmol/L (136-145); UREA NITROGEN, BLOOD 55 mg/dL (7-18)
[2022-04-03 09:56] LABS: BASOPHILS % (AUTO) 0.8 % (0.0-2.0); EOSINOPHILS % (AUTO) 3.7 % (0.0-6.0); LYMPHOCYTES # (AUTO) 0.5 K/uL (0.8-4.8); LYMPHOCYTES % (AUTO) 15.8 % (20.0-44.0); MEAN CORPUSCULAR HGB CONC 33 g/dl (31.0-36.0); MEAN CORPUSCULAR VOLUME 90 fL (80-96); MONOCYTES # (AUTO) 0.6 K/uL (0.1-1.30); MONOCYTES % (AUTO) 19.9 % (2.0-12.0); NEUTROPHILS # (AUTO) 1.9 K/uL (1.8-8.9); NEUTROPHILS % (AUTO) 59.8 % (43.0-81.0); PLATELET COUNT (AUTO) 88 K/uL (150-450); RED BLOOD CELL COUNT(AUTO) 2.23 MIL/uL (4.5-6.0); WHITE BLOOD COUNT (AUTO) 3.1 K/uL (4.3-11.0)
[2022-04-03 10:00] LABS: HEMATOCRIT 20 % (39-51); HEMOGLOBIN 6.7 g/dL (13.5-17.5)
--- NOTE | 2022-04-03 16:46 | NUR ---
SS consult requested for pt. from home with wounds. SW will follow up at a later time.
[2022-04-03] MEDS: POVIDONE-IODINE OINT 28.4 GM TUBE TP SCH (17:45)
--- NOTE | 2022-04-03 18:37 | NUR ---
BILINGUAL INSIDE SALES REPRESENTATIVE CLOSING NOTES PATIENT LAYING IN BED, A/O X 4, ABLE TO MAKE NEEDS KNOWN, TOLERATING WELL ON ROOM AIR WITH NO S/S RESPIRATORY DISTRESS. NO COMPLAINTS OF PAIN OR DISCOMFORT AT THIS TIME. TELE MONITOR IN PLACE READING SR 92 WITH PVCs. LFA # 20 IV CLEAN, INTACT, INFUSING NS @ 75 ML/HR. BAKER CATHETER IN PLACE DRAINING CLEAR ANDREW COLORED URINE TO GRAVITY. SAFETY MEASURES IN PLACE: BED IN LOWEST LOCKED POSITION, SIDE RAILS UP X 2, CALL LIGHT WITHIN REACH. ALL NEEDS MET. WILL ENDORSE TO LUTE PACKER OR APPLIER FOR KEV.
--- NOTE | 2022-04-03 20:00 | NUR ---
TELERN VERBALIZES GENERALIZED BODY ACHE, NORCO 1 TAB PO ADMINISTERED ORDERED. ALL NEEDS ATTENDED. REFUSED IVF FOR NOW STATES WILL CALL.
[2022-04-03 20:06] LABS: HEMOGLOBIN 7.6 g/dL (13.5-17.5)
--- NOTE | 2022-04-03 23:03 | NUR ---
TELERN AWAKENED, IVF RESUMED. NO OTHER NEEDS MADE. KEPT COMFORTABLE
[2022-04-04] VITALS (7 sets, daily range): BP systolic 132–142; BP diastolic 58–74
[2022-04-04] MEDS: LACTULOSE 10 G/15 ML UDC (PYXIS) PO SCH ×4 (02:30→20:29)
[2022-04-04] MEDS: CEFTRIAXONE 1 G in IV D5W 50 ML IV SCH (05:43)
[2022-04-04] MEDS: IV NS 0.9% 1,000 ML IV PRN (05:51)
[2022-04-04 06:03] LABS: BASOPHILS % (MANUAL) 0 % (0.0-2.0); EOSINOPHILS % (MANUAL) 5 % (0-4); LYMPHOCYTES % (MANUAL) 15 % (16-48); MONOCYTES % (MANUAL) 21 % (0-11.0); NEUTROPHILS % (MANUAL) 59 (42-76)
[2022-04-04 06:22] LABS: BASOPHILS % (AUTO) 0.9 % (0.0-2.0); EOSINOPHILS % (AUTO) 4.6 % (0.0-6.0); HEMATOCRIT 22 % (39-51); HEMOGLOBIN 7.4 g/dL (13.5-17.5); LYMPHOCYTES # (AUTO) 0.5 K/uL (0.8-4.8); LYMPHOCYTES % (AUTO) 19.8 % (20.0-44.0); MEAN CORPUSCULAR HGB CONC 34 g/dl (31.0-36.0); MEAN CORPUSCULAR VOLUME 89 fL (80-96); MONOCYTES # (AUTO) 0.4 K/uL (0.1-1.30); MONOCYTES % (AUTO) 18.1 % (2.0-12.0); NEUTROPHILS # (AUTO) 1.4 K/uL (1.8-8.9); NEUTROPHILS % (AUTO) 56.6 % (43.0-81.0); PLATELET COUNT (AUTO) 84 K/uL (150-450); RED BLOOD CELL COUNT(AUTO) 2.43 MIL/uL (4.5-6.0); WHITE BLOOD COUNT (AUTO) 2.4 K/uL (4.3-11.0)
--- NOTE | 2022-04-04 06:40 | NUR ---
TELERN IVF CONTINUED, REMAINS SR ON THE MONITOR. CONTINUED MONITORING.
[2022-04-04 07:24] LABS: CALCIUM, SERUM 7.8 mg/dL (8.5-10.1); CARBON DIOXIDE 13 mmol/L (21-32); CHLORIDE 107 mmol/L (98-107); CREATININE 3.1 mg/dL (0.6-1.3); GLUCOSE 112 mg/dL (74-106); MAGNESIUM 1.9 mg/dL (1.8-2.4); PHOSPHORUS 4.9 mg/dL (2.5-4.9); POTASSIUM 4.1 mmol/L (3.5-5.1); SODIUM SERUM 134 mmol/L (136-145); UREA NITROGEN, BLOOD 54 mg/dL (7-18)
--- NOTE | 2022-04-04 07:30 | NUR ---
DEALER COMPLIANCE REPRESENTATIVE OPENING NOTES RECEIVED PATIENT ON BED AWAKE AND A/O X4. ON ROOM AIR TOLERATING WELL. NO SOB NOTED. NOT IN DISTRESS. WITH NO COMPLAINTS OF PAIN OR DISCOMFORT AT THIS TIME. ON TELE MONITOR CURRENTLY READING SINUS RHYTHM AT 85BPM. WITH IV ACCESS AT THE LEFT FOREARM G20 WITH NS AT 75ML/HR INFUSING WELL. SAFETY MEASURES IN PLACED. CALL LIGHT WITHIN REACH. BED ON LOWEST LOCKED POSITION, SIDE RAILS UP X2. WILL CONTINUE TO MONITOR.
[2022-04-04] MEDS: PANTOPRAZOLE 40 MG TABLET.DR PO SCH (09:34)
[2022-04-04] MEDS: POVIDONE-IODINE OINT 28.4 GM TUBE TP SCH ×2 (09:37→16:37)
[2022-04-04] MEDS: DAKINS QUARTER STRENGTH (0.125%) 480 ML BOTTLE TOP SCH (09:37)
[2022-04-04] MEDS: HYDROCODONE/APAP 5/325MG TABLET PO PRN (09:37)
[2022-04-04 13:15] LABS: BASOPHILS % (MANUAL) 0 % (0.0-2.0); EOSINOPHILS % (MANUAL) 3 % (0-4); LYMPHOCYTES % (MANUAL) 13 % (16-48); MONOCYTES % (MANUAL) 14 % (0-11.0); NEUTROPHILS % (MANUAL) 70 (42-76)
--- NOTE | 2022-04-04 18:38 | NUR ---
WELDING MACHINE OPERATOR RESISTANCE CLOSING NOTES PATIENT ON BED AWAKE AND A/O X4. ON ROOM AIR TOLERATING WELL. NO SOB NOTED. NOT IN DISTRESS. WITH NO COMPLAINTS OF PAIN OR DISCOMFORT AT THIS TIME. ON TELE MONITOR CURRENTLY READING SINUS RHYTHM AT 83BPM. WITH IV ACCESS AT THE LEFT FOREARM G20 WITH NS AT 75ML/HR INFUSING WELL. DUE MEDS GIVEN. WOUND CARE DONE. SAFETY MEASURES IN PLACED. CALL LIGHT WITHIN REACH. BED ON LOWEST LOCKED POSITION, SIDE RAILS UP X2. WILL ENDORSE TO NEXT SHIFT FOR KEV.
--- NOTE | 2022-04-04 19:36 | NUR ---
FUR MACHINE OPERATOR NOTES RECEIVED ON BED SLEEPING,AROUSABLE TO VERBAL STIMULI,BREATHING REGULAR,NOT IN ANY FORM OF DISTRESS.IVF NS AT 75ML/HR RATE,SITE PATENT ON LFA.BAKER CATH IN PLACE DRAINS YELLOWISH OUTPUT.DRESSING TO BILATERAL FOOT INTACT AND DRY.WILL REPOSITION Q 2 HOURS,CALL LIGHT IN REACH,NEEDS ANTICIPATED.
--- NOTE | 2022-04-04 21:30 | NUR ---
DOG SHOW JUDGE NOTES MD VISIT SEEN BY [facility]PITAL[facility] WITH NEW ORDERS NOTED AND TANK OUT.
[2022-04-04] MEDS ORDERED: VANCOMYCIN 1 GM VIAL ONE ×2 (21:52→21:54)
[2022-04-04] MEDS ORDERED: VANCOMYCIN 1.5 GM in IV D5W 500ml IV ONE (22:00)
--- NOTE | 2022-04-04 22:00 | NUR ---
MANAGER WIND NOTES STARTED ON VANCOMYCIN 1.5 GM IN D5W 500,INFUSING AT 250/HR RATE OVER 2 HOURS VIA IV PUMP.
--- NOTE | 2022-04-04 23:00 | NUR ---
REPAIR OPERATOR NOTES GET OUT TO BEDSIDE COMMODE,IV SALINE LOCK ACCIDENTALLY PULLED OUT.NEW SALINE LOCK #20 INSERTED ON RIGHT FOREARM.IV ABX RE STARTED.
[2022-04-05] VITALS: BP 149/67
[2022-04-05] MEDS: LACTULOSE 10 G/15 ML UDC (PYXIS) PO SCH ×4 (02:30→20:29)
[2022-04-05 04:00] VITALS: BP 151/70
[2022-04-05] MEDS: CEFTRIAXONE 1 G in IV D5W 50 ML IV SCH (05:11)
[2022-04-05] MEDS: HYDROCODONE/APAP 5/325MG TABLET PO PRN ×2 (05:20→11:07)
--- NOTE | 2022-04-05 06:33 | NUR ---
MS RN NOTES IV ABX TOLERATED WELL.PAIN MANAGEMENT EFFECTIVE,AFEBRILE.IN NO ACUTE DISTRESS.
--- NOTE | 2022-04-05 07:30 | NUR ---
RN OPENING NOTE-PATIENT ON BED AWAKE AND A/O X4. ON ROOM AIR TOLERATING WELL. NO SOB NOTED. NOT IN DISTRESS. WITH NO COMPLAINTS OF PAIN OR DISCOMFORT AT THIS TIME. ON TELE MONITOR CURRENTLY READING SINUS RHYTHM AT 82 . WITH IV ACCESS AT THE LEFT FOREARM G20 WITH NS AT 75ML/HR INFUSING WELL. SAFETY MEASURES IN PLACED. CALL LIGHT WITHIN REACH. BED ON LOWEST LOCKED POSITION, SIDE RAILS UP X2. WILL CONTINUE TO MONITOR / ASSIST
[2022-04-05] MEDS: PANTOPRAZOLE 40 MG TABLET.DR PO SCH (07:46)
[2022-04-05 08:00] VITALS: BP 149/73
[2022-04-05] MEDS: POVIDONE-IODINE OINT 28.4 GM TUBE TP SCH ×2 (09:00→15:03)
[2022-04-05] MEDS: DAKINS QUARTER STRENGTH (0.125%) 480 ML BOTTLE TOP SCH (09:00)
[2022-04-05 12:33] LABS: BASOPHILS % (AUTO) 0.4 % (0.0-2.0); HEMATOCRIT 23 % (39-51); HEMOGLOBIN 7.6 g/dL (13.5-17.5); LYMPHOCYTES # (AUTO) 0.4 K/uL (0.8-4.8); LYMPHOCYTES % (AUTO) 13.8 % (20.0-44.0); MEAN CORPUSCULAR HGB CONC 33 g/dl (31.0-36.0); MEAN CORPUSCULAR VOLUME 90 fL (80-96); MONOCYTES # (AUTO) 0.5 K/uL (0.1-1.30); MONOCYTES % (AUTO) 17.8 % (2.0-12.0); NEUTROPHILS # (AUTO) 1.9 K/uL (1.8-8.9); PLATELET COUNT (AUTO) 97 K/uL (150-450); RED BLOOD CELL COUNT(AUTO) 2.56 MIL/uL (4.5-6.0); WHITE BLOOD COUNT (AUTO) 2.9 K/uL (4.3-11.0)
[2022-04-05 12:44] LABS: CALCIUM, SERUM 8.2 mg/dL (8.5-10.1); CARBON DIOXIDE 13 mmol/L (21-32); CHLORIDE 105 mmol/L (98-107); CREATININE 2.9 mg/dL (0.6-1.3); GLUCOSE 127 mg/dL (74-106); MAGNESIUM 1.8 mg/dL (1.8-2.4); PHOSPHORUS 4.1 mg/dL (2.5-4.9); POTASSIUM 4.2 mmol/L (3.5-5.1); SODIUM SERUM 130 mmol/L (136-145); UREA NITROGEN, BLOOD 47 mg/dL (7-18)
--- NOTE | 2022-04-05 15:00 | NUR ---
RN NOTE-WOUND CARE COMPLETED PER ORDERS. TOLERATED WELL.
[2022-04-05] MEDS: IV NS 0.9% 1,000 ML IV PRN (15:02)
[2022-04-05 16:00] VITALS: BP 140/62
--- NOTE | 2022-04-05 18:47 | NUR ---
RN CLOSING NOTE- NO CHANGES, PT IN BED AWAKE AND A/O X4. ON ROOM AIR TOLERATING WELL. NO SOB NOTED. NOT IN DISTRESS. PAIN RELIEVED W NORCO 5 MG, . WITH IV ACCESS AT THE LEFT FOREARM 20G WITH NS AT 75ML/HR INFUSING WELL. SAFETY MEASURES IN PLACED. CALL LIGHT WITHIN REACH. BED ON LOWEST LOCKED POSITION, SIDE RAILS UP X2. WILL CONTINUE TO MONITOR / ASSIST
[2022-04-05 20:00] VITALS: BP 145/73
--- NOTE | 2022-04-05 20:02 | NUR ---
RN OPENING NOTE PATIENT AWAKE IN BED. A/OX4. NO S/S OF DISTRESS, BREATHING WITHOUT DIFFICULTY ON ROOM AIR. RFA #20 INTACT AND PATENT W/ NS 75ML/HR. SAFETY MEASURES IN PLACE: BED LOCKED AND AT LOWEST POSITION, RAILS UP X2, CALL BROWN WITHIN REACH. WILL CONTINUE TO MONITOR PATIENT.
[2022-04-06] MEDS: LACTULOSE 10 G/15 ML UDC (PYXIS) PO SCH ×4 (02:30→20:30)
[2022-04-06] MEDS: IV NS 0.9% 1,000 ML IV PRN (04:50)
[2022-04-06] MEDS: CEFTRIAXONE 1 G in IV D5W 50 ML IV SCH (04:50)
[2022-04-06 06:47] LABS: BASOPHILS % (AUTO) 0.6 % (0.0-2.0); EOSINOPHILS % (AUTO) 6.9 % (0.0-6.0); HEMATOCRIT 23 % (39-51); HEMOGLOBIN 7.8 g/dL (13.5-17.5); LYMPHOCYTES # (AUTO) 0.5 K/uL (0.8-4.8); LYMPHOCYTES % (AUTO) 17.6 % (20.0-44.0); MEAN CORPUSCULAR HGB CONC 34 g/dl (31.0-36.0); MEAN CORPUSCULAR VOLUME 90 fL (80-96); MONOCYTES # (AUTO) 0.5 K/uL (0.1-1.30); MONOCYTES % (AUTO) 18.5 % (2.0-12.0); NEUTROPHILS # (AUTO) 1.6 K/uL (1.8-8.9); NEUTROPHILS % (AUTO) 56.4 % (43.0-81.0); PLATELET COUNT (AUTO) 102 K/uL (150-450); RED BLOOD CELL COUNT(AUTO) 2.56 MIL/uL (4.5-6.0); WHITE BLOOD COUNT (AUTO) 2.8 K/uL (4.3-11.0)
--- NOTE | 2022-04-06 06:59 | NUR ---
RN CLOSING NOTE PATIENT ASLEEP IN BED. A/OX3-4. NO S/S OF DISTRESS, BREATHING WITHOUT DIFFICULTY ON ROOM AIR. RFA #20 INTACT AND PATENT W/ NS 75ML/HR. SAFETY MEASURES IN PLACE: BED LOCKED AND AT LOWEST POSITION, RAILS UP X2, CALL BROWN WITHIN REACH. WILL ENDORSE TO NEXT SHIFT.
--- NOTE | 2022-04-06 07:25 | NUR ---
BALANCE STAFF STAKER OPENING NOTES RECEIVED PATIENT IN BED RESTING, A/O X4 AND ABLE TO MAKE NE4EDS KNOWN. ON ROOM AIR TOLERATING WELL. NO SOB NOTED, NO RESPIRATORY DISTRESS. NO COMPLAINTS OF PAIN OR DISCOMFORT AT THIS TIME. ON TELE MONITOR CURRENTLY READING SINUS RHYTHM AT 75 BPM. WITH IV ACCESS AT THE LEFT FOREARM G20 WITH NS AT 75ML/HR INFUSING WELL. SAFETY MEASURES IN PLACED. CALL LIGHT WITHIN REACH. BED ON LOWEST LOCKED POSITION, SIDE RAILS UP X2. WILL CONTINUE TO MONITOR.
[2022-04-06 07:30] LABS: CALCIUM, SERUM 8.2 mg/dL (8.5-10.1); CARBON DIOXIDE 11 mmol/L (21-32); CHLORIDE 106 mmol/L (98-107); CREATININE 2.8 mg/dL (0.6-1.3); GLUCOSE 114 mg/dL (74-106); MAGNESIUM 1.7 mg/dL (1.8-2.4); PHOSPHORUS 4.2 mg/dL (2.5-4.9); POTASSIUM 4.2 mmol/L (3.5-5.1); SODIUM SERUM 131 mmol/L (136-145); UREA NITROGEN, BLOOD 46 mg/dL (7-18)
[2022-04-06 08:13] VITALS: BP_SYST 146; BP_SYST 148; BP_DIAS 72; BP_DIAS 73
[2022-04-06] MEDS: PANTOPRAZOLE 40 MG TABLET.DR PO SCH (08:27)
[2022-04-06] MEDS: POVIDONE-IODINE OINT 28.4 GM TUBE TP SCH ×2 (08:41→17:07)
[2022-04-06] MEDS: DAKINS QUARTER STRENGTH (0.125%) 480 ML BOTTLE TOP SCH (08:41)
[2022-04-06] MEDS ORDERED: VANCOMYCIN 1 GM in IV D5W 250 ML IV SCH (10:00)
[2022-04-06 12:04] LABS: OCCULT BLOOD STOOL NEGATIVE (NEGATIVE)
[2022-04-06] MEDS: HYDROCODONE/APAP 5/325MG TABLET PO PRN (14:39)
[2022-04-06 15:58] VITALS: BP 144/74
--- NOTE | 2022-04-06 16:15 | NUR ---
RN NOTE- PT SPOKE W DR COYNE REGARDING DEBRIDEMENT AND POSS HALLUX AMPUTATION TOMORROW. PT AGREED, SIGNED CONSENTS AND WILL BE NPO AFTER MN. DRESSING CHANGE TO FEET PER ORDERS. TOLERATED WELL.
--- NOTE | 2022-04-06 18:44 | NUR ---
RN CLOSING NOTE PT ASLEEP IN BED, EASILY AWOKEN. A/OX3-4 AND ABLE TO MAKE NEEDS KNOWN. PT IS ON ROOM AIR, BREATHING EVEN AND NONLABORED. NO CARDIAC DISTRESS NOTED THROUGHOUT SHIFT. IV AT RIGHT FOREARM #20, NORMAL SALINE RUNNING AT 75ML/HR, NO SIGNS OF INFILTRATION. SPAFETY PRECAUTIONS MET WITH BED IN LOWEST LOCKED POSITION, TRAY AND CALL LIGHT WITHIN REACH. ALL NEEDS MET AT THIS TIME. WILL ENDORSE KEV TO FACILITIES OPERATOR NURSE.
--- NOTE | 2022-04-06 19:41 | NUR ---
RN OPENING NOTE PATIENT ASLEEP IN BED. A/OX4. NO S/S OF DISTRESS, BREATHING WITHOUT DIFFICULTY ON ROOM AIR. RFA #20 W/ NS 75ML/HR. SAFETY MEASURES IN PLACE: BED LOCKED IN PLACE AND AT LOWEST POSITION, RAILS UP X2, CALL BROWN WITHIN REACH. WILL CONTINUE TO MONITOR PATIENT.
[2022-04-06 20:00] VITALS: BP 150/66
[2022-04-06 22:24] LABS: EOSINOPHILS % (MANUAL) 2 % (0-4); LYMPHOCYTES % (MANUAL) 20 % (16-48); MONOCYTES % (MANUAL) 10 % (0-11.0); NEUTROPHILS % (MANUAL) 68 (42-76)
[2022-04-07] MEDS: HYDROCODONE/APAP 5/325MG TABLET PO PRN (02:10)
[2022-04-07] MEDS: LACTULOSE 10 G/15 ML UDC (PYXIS) PO SCH ×4 (02:30→20:40)
[2022-04-07] MEDS: CEFTRIAXONE 1 G in IV D5W 50 ML IV SCH (04:58)
[2022-04-07] MEDS: IV NS 0.9% 1,000 ML IV PRN (04:59)
[2022-04-07] MEDS ORDERED: ANESTHESIA TRAY IN PYXIS 1 EA TRAY MC ONE (06:57)
--- NOTE | 2022-04-07 07:01 | NUR ---
RN CLOSING NOTE PATIENT ASLEEP IN BED. A/OX4. NO S/S OF DISTRESS, BREATHING WITHOUT DIFFICULTY ON 2L NC. RFA #20 INTACT AND PATENT W/ NS 75ML/HR. SAFETY MEASURES IN PLACE: BED LOCKED AND AT LOWEST POSITION, RAILS UP X2, CALL BROWN WITHIN REACH. WILL ENDORSE TO NEXT SHIFT FOR KEV.
--- NOTE | 2022-04-07 07:05 | NUR ---
RN NOTE PATIENT WENT DOWN TO OR. PATIENT A/OX4. STABLE.
[2022-04-07 07:10] LABS: CALCIUM, SERUM 8.1 mg/dL (8.5-10.1); CHLORIDE 109 mmol/L (98-107); CREATININE 2.8 mg/dL (0.6-1.3); GLUCOSE 115 mg/dL (74-106); POTASSIUM 4.3 mmol/L (3.5-5.1); SODIUM SERUM 133 mmol/L (136-145); UREA NITROGEN, BLOOD 45 mg/dL (7-18)
[2022-04-07 07:14] LABS: CARBON DIOXIDE 10 mmol/L (21-32)
[2022-04-07] MEDS ORDERED: FENTANYL PF 100MCG/2ML AMPUL ONE (07:16)
--- NOTE | 2022-04-07 07:22 | NUR ---
RN note Lab called for patient. Critical lab value of CO2 at 10. Patient currently noit on unit. Borught down to surgery Addendum: 04/07/22 at 0757 by ELLIOTT TORRES RN DR TELLO NOTIFIED
[2022-04-07] MEDS: PANTOPRAZOLE 40 MG TABLET.DR PO SCH (07:30)
--- NOTE | 2022-04-07 07:30 | NUR ---
RN OPENING NOTE PATIENT AWAY FROM UNIT WHEN RECEIVED. DOWN IN SURGERY FOR A PROCEDURE. WAS TOLD PATIENT IS A/OX4. NO S/S OF DISTRESS, BREATHING WITHOUT DIFFICULTY ON ROOM AIR. RFA #20 W/ NS 75ML/HR. WILL REASSESS PATIENT WHEN HE ARRIVES BACK FROM SURGERY.
[2022-04-07] MEDS ORDERED: BUPIVACAINE 0.5 % PF 150 MG/30 ML VIAL ONE (07:45)
--- NOTE | 2022-04-07 09:07 | NUR ---
RN NOTE ATIENT RETURNED FROM SURGERY ASLEEP. VITALS CHECKED, STABLE
[2022-04-07] MEDS: DAKINS QUARTER STRENGTH (0.125%) 480 ML BOTTLE TOP SCH (09:08)
[2022-04-07] MEDS: POVIDONE-IODINE OINT 28.4 GM TUBE TP SCH ×2 (09:08→16:36)
[2022-04-07 09:12] VITALS: BP_SYST 124; BP_SYST 135; BP_DIAS 62; BP_DIAS 69
[2022-04-07] MEDS: CEFEPIME 1 GM in IV D5W 50 ML IV SCH ×2 (12:25→23:54)
--- NOTE | 2022-04-07 12:48 | NUR ---
RN NOTE CONSENT FOR PROCEDURE HAS ALREADY BEEN SIGNED AND DATED 04/06/22 AND IS IN CHART Addendum: 04/07/22 at 1254 by ELLIOTT TORRES RN Amended: Links added.
[2022-04-07 16:00] VITALS: BP 135/79
[2022-04-07] MEDS: PROSOURCE / PROSTAT (PYXIS) 30 ML UDC PO SCH (16:34)
--- NOTE | 2022-04-07 19:09 | NUR ---
RN CLOSING NOTE PATIENT ASLEEP IN BED. A/OX4. NO S/S OF DISTRESS, BREATHING WITHOUT DIFFICULTY ON 2L NC. RFA #20 INTACT AND PATENT W/ NS 75ML/HR. SAFETY MEASURES IN PLACE: BED LOCKED AND AT LOWEST POSITION, RAILS UP X2, CALL BROWN WITHIN REACH. WILL ENDORSE TO NEXT SHIFT FOR CONTINUATION OF CARE
--- NOTE | 2022-04-07 19:15 | NUR ---
RN opening notes Received Pt from morning nurse. Pt is laying in bed comfortably watching TV. Pt is alert and orientedX4. On 2 L NC. No SOB. No S/S of distress noted. IV site at RFA# 20 is clean, intact and infusing well NS@ 75 ml/hr. safety precautions is maintained. bed at low position, brakes locked, side rails upX2, hob elevated, bed alarm is on and call light is within reach. Will continue to monitor.
[2022-04-07 20:00] VITALS: BP 138/62
[2022-04-08] MEDS: HYDROCODONE/APAP 5/325MG TABLET PO PRN ×3 (01:08→22:08)
[2022-04-08] MEDS: LACTULOSE 10 G/15 ML UDC (PYXIS) PO SCH ×4 (02:30→20:30)
--- NOTE | 2022-04-08 03:00 | NUR ---
RN notes Pt refused lactulose. Pt had 2 BM. Will continue to monitor.
[2022-04-08] MEDS: IV NS 0.9% 1,000 ML IV PRN (03:16)
--- NOTE | 2022-04-08 06:30 | NUR ---
RN closing notes Pt is resting in bed comfortably. Pt is alert and orientedX4. On 2 L NC. No SOB. No S/S of distress noted. IV site at LAC# 20 is clean, intact and infusing well NS@ 75 ml/hr. Routine meds were given as ordered. VS is stable. Kept Pt clean, dry and comfortably. Weston cath is intact and draining yellow urine. safety precautions is maintained. bed at low position, brakes locked, side rails upX2, hob elevated, bed alarm is on and call light is within reach. Will endorse to am nurse for KEV.
[2022-04-08 07:00] VITALS: BP 143/75
--- NOTE | 2022-04-08 07:20 | NUR ---
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 IV ACCESS ON LAC G#22 W/ NS 75ML/HR, PATENT FLUSHING WELL. NO COMPLAINTS OF ANY PAIN NOR DISCOMFORT. SAFETY MEASURES IN PLACE: BED LOCKED AND AT LOWEST POSITION, RAILS UP X2, CALL LIGHT AND TRAY WITHIN REACH. WILL CONTINUE TO MONITOR PATIENT.
--- NOTE | 2022-04-08 07:25 | NUR ---
MS YUNIOR OPENING NOTE RECEIVED PATIENT AWAKE IN BED. A/OX4, ABLE TO MAKE NEEDS KNOWN, NO S/S OF ANY APPARENT DISTRESS, STABLE ON ROOM AIR, WITHOUT ANY BREATHING DIFFICULTY. IV ACCESS ON R WRIST G#20 W/ NS 75ML/HR, PATENT FLUSHING WELL. NO COMPLAINTS OF ANY PAIN NOR DISCOMFORT. SAFETY MEASURES IN PLACE: BED LOCKED AND AT LOWEST POSITION, RAILS UP X2, CALL LIGHT AND TRAY WITHIN REACH. WILL CONTINUE TO MONITOR PATIENT. Addendum: 04/08/22 at 1616 by ISAIAH EMERSON RN ERRATUM: NOT FOR THIS PATIENT
[2022-04-08 08:00] VITALS: BP 143/75
[2022-04-08] MEDS: PANTOPRAZOLE 40 MG TABLET.DR PO SCH (08:08)
[2022-04-08] MEDS: POVIDONE-IODINE OINT 28.4 GM TUBE TP SCH ×2 (08:24→16:38)
[2022-04-08] MEDS: PROSOURCE / PROSTAT (PYXIS) 30 ML UDC PO SCH ×3 (08:25→16:38)
[2022-04-08] MEDS: DAKINS QUARTER STRENGTH (0.125%) 480 ML BOTTLE TOP SCH (08:25)
--- NOTE | 2022-04-08 11:00 | NUR ---
RN NOTES - PATIENT REFUSED PT EVAL TODAY PER PT
[2022-04-08] MEDS: CEFEPIME 1 GM in IV D5W 50 ML IV SCH (13:01)
--- NOTE | 2022-04-08 15:11 | NUR ---
RN NOTES - PATIENT COMPLAINING OF 7/10 PAIN COMING FROM LEFT LEG/TOE, GIVEN NORCO 5/325 MG ORDERED. WILL CONTINUE TO MONITOR.
[2022-04-08 16:00] VITALS: BP 138/55
--- NOTE | 2022-04-08 18:34 | NUR ---
MS RN CLOSING NOTE PATIENT AWAKE IN BED, A/OX4, ABLE TO MAKE NEEDS KNOWN, NO S/S OF ANY APPARENT DISTRESS, PATIENT ON 2 LPM WITHOUT ANY BREATHING DIFFICULTY, SATURATING AT 100%. STILL IV ACCESS ON LAC G#22 W/ NS 75ML/HR, PATENT FLUSHING WELL. NO COMPLAINTS OF ANY PAIN NOR DISCOMFORT. ALL NEEDS MET, ALL DUE MEDS GIVEN. SAFETY MEASURES MAINTAINED: BED LOCKED AND AT LOWEST POSITION, RAILS UP X2, CALL LIGHT AND TRAY WITHIN REACH. WILL ENDORSE TO THE WATER WELL DRILLER NURSE.
--- NOTE | 2022-04-08 19:25 | NUR ---
MS RN OPENING NOTE RECEIVED PATIENT AWAKE IN BED. PT A/OX4, ABLE TO MAKE NEEDS KNOWN, NO S/S OF RESPIRATORY DISTRESS, STABLE ON ROOM AIR, NO SOB NOTED. IV ACCESS TO RIGHT WRIST G#20 W/ NS RUNNING AT 75ML/HR, PATENT FLUSHING WELL. NO COMPLAINTS OF ANY PAIN NOR DISCOMFORT. SAFETY MEASURES IN PLACE: BED LOCKED AND AT LOWEST POSITION, RAILS UP X2, CALL LIGHT AND TRAY WITHIN REACH. WILL CONTINUE TO MONITOR PATIENT.
[2022-04-08 20:00] VITALS: BP 140/63
[2022-04-09] MEDS: CEFEPIME 1 GM in IV D5W 50 ML IV SCH ×3 (00:22→23:35)
[2022-04-09] MEDS: LACTULOSE 10 G/15 ML UDC (PYXIS) PO SCH ×4 (02:30→20:28)
[2022-04-09 07:00] VITALS: BP 125/65
--- NOTE | 2022-04-09 07:00 | NUR ---
MS RN CLOSING NOTE LEFT PATIENT SLEEPING IN BED, A/OX4, ABLE TO MAKE NEEDS KNOWN, NO S/S OF RESPIRATORY DISTRESS, PATIENT ON 2 LPM WITHOUT ANY BREATHING DIFFICULTY, SATURATING AT 100%. STILL IV ACCESS ON LAC G#22 W/ NS 75ML/HR, PATENT FLUSHING WELL. NO COMPLAINTS OF ANY PAIN NOR DISCOMFORT. ALL NEEDS MET PT REFUSED LACTULOSE AT 2030, AND AT 0230. SAFETY MEASURES MAINTAINED: BED LOCKED AND AT LOWEST POSITION, RAILS UP X2, CALL LIGHT AND TRAY WITHIN REACH. WILL ENDORSE TO THE AM SHIFT NURSE FOR KEV.
--- NOTE | 2022-04-09 07:30 | NUR ---
RN OPENING NOTE RECEIVED PATIENT FROM FORENSIC IDENTIFICATION SPECIALIST ASLEEP IN BED. PT A/OX4, ABLE TO MAKE NEEDS KNOWN, NO S/S OF RESPIRATORY DISTRESS, STABLE ON ROOM AIR, NO SOB NOTED. IV ACCESS TO RIGHT WRIST G#20 W/ NS RUNNING AT 75ML/HR, PATENT. NO COMPLAINTS OF ANY PAIN NOR DISCOMFORT. SAFETY MEASURES IN PLACE: BED LOCKED AND AT LOWEST POSITION, RAILS UP X2, CALL LIGHT AND TRAY WITHIN REACH. WILL CONTINUE TO MONITOR PATIENT THROUGHOUT THE DAY
[2022-04-09] MEDS: PROSOURCE / PROSTAT (PYXIS) 30 ML UDC PO SCH ×3 (08:13→17:29)
[2022-04-09] MEDS: POVIDONE-IODINE OINT 28.4 GM TUBE TP SCH ×2 (08:13→17:29)
[2022-04-09] MEDS: DAKINS QUARTER STRENGTH (0.125%) 480 ML BOTTLE TOP SCH (08:13)
[2022-04-09] MEDS: PANTOPRAZOLE 40 MG TABLET.DR PO SCH (08:13)
[2022-04-09] MEDS: HYDROCODONE/APAP 5/325MG TABLET PO PRN ×2 (11:00→23:17)
[2022-04-09 16:00] VITALS: BP 134/72
--- NOTE | 2022-04-09 19:20 | NUR ---
RN CLOSING NOTE PATIENT SLEEPING IN BED, A/OX4, ABLE TO MAKE NEEDS KNOWN, NO S/S OF RESPIRATORY DISTRESS, PATIENT ON 2 LPM WITHOUT ANY BREATHING DIFFICULTY, SATURATING AT 100%. RIGHT UPPER MIDLINE 18 G, PATENT FLUSHING WELL. NO COMPLAINTS OF ANY PAIN NOR DISCOMFORT. ALL NEEDS MET. SAFETY MEASURES MAINTAINED: BED LOCKED AND AT LOWEST POSITION, RAILS UP X2, CALL LIGHT AND TRAY WITHIN REACH. WILL ENDORSE TO THE AM SHIFT NURSE FOR KEV.
--- NOTE | 2022-04-09 19:26 | NUR ---
RN OPENING NOTE; RECEIVED PATIENT SLEEPING IN BED,A/OX4, ABLE TO MAKE NEEDS KNOWN,ON 2L O2 VIA NC TED WELL SATTING 99%,NO SOB/DISTRESS NOTED, RIGHT UPPER MIDLINE 18 G, PATENT FLUSHING WELL.SAFETY MEASURES MAINTAINED: BED LOCKED AND AT LOWEST POSITION, RAILS UP X2, CALL LIGHT WITHIN REACH,WILL CONTINUE TO MONITOR.
[2022-04-09 20:19] VITALS: BP 147/71
--- NOTE | 2022-04-09 23:25 | NUR ---
RN NOTE; PT COMPLAINED LT FOOT PAIN /,PRN NORCO 5-325MG WAS GIVEN.NO SIGN A/R NOTED.
[2022-04-10] MEDS: LACTULOSE 10 G/15 ML UDC (PYXIS) PO SCH ×5 (02:41→20:27)
[2022-04-10] MEDS: IV NS 0.9% 1,000 ML IV PRN ×2 (04:19→18:39)
--- NOTE | 2022-04-10 06:32 | NUR ---
RN CLOSOING NOTE; PATIENT SLEEPING IN BED,A/OX4, ABLE TO MAKE NEEDS KNOWN,ON 2L O2 VIA NC TED WELL SATTING 99%,NO SOB/DISTRESS NOTED,PT WAS COMPLAINED OF PAIN 7/10 LLFOOT,PRN MEDS WAS GIVEN,DUE MEDS GIVEN ORDER,ALL NEEDS ATTENDED, RIGHT UPPER MIDLINE 18 G, PATENT FLUSHING WELL.SAFETY MEASURES MAINTAINED: BED LOCKED AND AT LOWEST POSITION, RAILS UP X2, CALL LIGHT WITHIN REACH,WILL ENDORSED TO NEXT SHIFT.
--- NOTE | 2022-04-10 06:33 | NUR ---
RN CLOSING NOTE; PATIENT IN BED SLEEPING BUT EASY TO AROUSED,TDE WELL ON RM AIR,NO SIGN SOB/DISTRESS NOTED,NO COMPLAINED OF PAIN/DISCOMFORT DURING SHIFT.IV SITE ON LHAND 20G WITH D5 1/2 NS 75ML/HR.SP RT HIP ORIF NO SIGN OF BLEEDING SITE NOTED,FC DRAINING ANDREW URINE NO ODOR NOTED OUTPUT 1050ML.SAFETY MEASURED IN PLACE,CALL LIGHT WITHIN REACH,WILL ENDORSED TO NEXT SHIFT.
--- NOTE | 2022-04-10 07:45 | NUR ---
RN OPENING NOTE; RECEIVED PATIENT AWAKE IN BED,A/OX4, ABLE TO MAKE NEEDS KNOWN,ON 2L O2 VIA NC TED WELL SATTING 99%,NO SOB/DISTRESS NOTED, NO C/O OF PAIN AND DISCOMFORT NOTED , RIGHT UPPER MIDLINE 18 G, PATENT FLUSHING WELL.SAFETY MEASURES MAINTAINED: BED LOCKED AND AT LOWEST POSITION, RAILS UP X2, CALL LIGHT WITHIN REACH,WILL CONTINUE TO MONITOR.
[2022-04-10] MEDS: PANTOPRAZOLE 40 MG TABLET.DR PO SCH (07:47)
[2022-04-10] MEDS: HYDROCODONE/APAP 5/325MG TABLET PO PRN ×2 (07:53→14:39)
[2022-04-10 08:00] VITALS: BP 133/60
[2022-04-10] MEDS: PROSOURCE / PROSTAT (PYXIS) 30 ML UDC PO SCH ×4 (11:09→17:14)
[2022-04-10] MEDS: DAKINS QUARTER STRENGTH (0.125%) 480 ML BOTTLE TOP SCH (11:13)
[2022-04-10] MEDS: POVIDONE-IODINE OINT 28.4 GM TUBE TP SCH ×2 (11:15→17:20)
[2022-04-10] MEDS: CEFEPIME 1 GM in IV D5W 50 ML IV SCH ×2 (11:25→23:17)
--- NOTE | 2022-04-10 15:03 | NUR ---
SS consult: SS Consult requested for safe discharge planning. The pt. is 71-year-old male admitted to [facility] for acute renal failure, foot ulcer and UTI. DARRIUS met with pt. at bedside. The pt. is alert & oriented x 3 and makes good eye contact. The pt. has euthymic mood & affect. Pt. denies SI/HI and denies hallucinations. The pt. is hard of hearing. The pt.s speech is slow, raspy and low. Pt.s thought process is WNL. The pt. appears unkempt with both feet wrapped. Pt. states he has had wound on left foot for 7-10 years that never healed, and pt. has debridement surgery on right toe. Pt. states he does not know how he originally got the wound. Per pt. he resides at home [[address] [address]; [phone]] with his , Tim Mccain [phone] and his 2 adult children. Pt. denies any history of mental illness and denies drug or alcohol addiction. Per pt. he was ambulatory with front wheel walker prior to admission. Per pt. he is independent with all his ADLs and sometimes needs minimal assistance. Per pt. he is ambulatory with a cane and will use it at home for safe ambulation. Per pt. he receives SSI. DC Plan: Per pt. and CM note, the pt. will be discharging to a nursing home facility for rehabilitation. SW provided pt. with senior resources including for transportation, meal delivery, DME, insurance assistance etc. Pt. was receptive and stated he will use resources as needed. ABUSE PREVENTION: ELDER ABUSE HOTLINE (19/10) ADULT PROTECTIVE SERVICES HOTLINE LONG-TERM CARE [facility] Region AREA ON AGING (HOTLINE) ADULT DAY HEALTH CARE CARE CENTERS: Private pay or Medi-dominga funded adult day care [facility] , [facility] , [facility] Adult Care Center , [facility] Adult Day Health Care , [facility] Center[facility] Adult [facility] Health Care , [facility] Adult [facility] Center , [facility] Generation Center , [facility] , [place] ALZHEIMERS DISEASE/DEMENTIA: Alzheimers Association Helpline [facility] Chapter www.alz.org/[facility] Department of Aging www.lacity.org Family Caregiver [place] www.caregiver.org [place] Caregiver Resources Center/Family Support www.losangeless[facility].org CANCER RESOURCES: [place] Cancer Society www.cancer.org Cancer Support Community www.CancerSupportVvsb.org: CancerCare www.cancercare.org [facility] Cancer Support [place] www.[facility].org [facility] HEALTH ASSOCIATIONS: AARP www.aarp.org ALS Association (ask for Annel) www.als.org Jama[place] Diabetes Association www.diabetes.org Jamaican Heart Association www.heart.org Jamaican Lung Association www.lungusa.org Jamaican Parkinson Disease Association www.apdaparkinson.org Jamaican [place] , www.redcross.org Arthritis Foundation www.arthritis.org Crohns & Colitis Foundation of Jamaican www.ccfa.org/chapters/[place] National Multiple Sclerosis Society www.nationalmssociety.org Myasthenia Gravis Foundation www.myasthenia-ca.org National Stroke Association www.stroke.org CONSERVATORSHIP & GUARDIANSHIP: AARP Izzy Parkinson Legal Services Center for Health Care Rights Eldercare Information and Referral Religion Instructor Foundation [facility]: [facility] Bar Referral Service [facility] Legal Services Office of the Public Guardian Sheldon EYESIGHT DISORDER RESOURCES: [place]ican Macular Degeneration Foundation [facility] www.university of [facility]aryland rehabilitation & orthopaedic institute.org GRIEF AND BEREAVEMENT RESOURCES: [facility] , [facility] THE [place] Connection , [facility] Bereavement Center , [place] HEARING DISORDER RESOURCES: [place] Telephone Access Program Deaf and Disabled Telecommunications Program www.ddtp.cpu.ca.gov HearRx Hearing Centers ([place]) Better Hearing Systems , [place] GLAD ([facility] Agency on Deafness) V/ TTY; Edge Runner , [facility] -low income hearing aid assistance www.FuelCell Energy Inchearingfoundation.org [place] Hearing Care , Piyush HELP AT HOME CAREGIVER SUPPORT: In Home Support Services (Must have Medi-Dominga to be eligible) *Ask for a list of agencies that provide services to assist with care in the home. Local Senior Centers also have listings of care providers. HOME SAFETY MODIFICATIONS AND EQUIPMENT: Senior centers have additional referrals. [place] Housing and Community Investment Dept. Handyworker Program (low income) or Visit http://hcidla.lacity.org/hqd-gtobji-wi for more information National Seating and Mobility and/or ; Forever Active www.foreveractivemed.LearnUpon Stay Home Safe www.StayhomWork in Field.LearnUpon LIFE ALERT RESPONSE SYSTEM: Lightside Games Services 711-426-8192 www. Mozenda Life Alert 488-686-8669 www.Sierra Monolithics Life Station 427-504-8093 www.DataCentred.LearnUpon Safe Return 515-213-3412 www.Tigerstripe.or/safereturn Cell Phones for Seniors www.RECOMY.COM MEALS AND FOOD PROGRAMS: [place] Meals on Wheels [phone] [place] Meals on Wheels [phone] [facility] [phone] [place] to the Homebound [phone] [place] to the Homebound [phone] [facility] to the Homebound [phone] [facility] to the Homebound [phone] [facility] Children[facility] Hospital[facility] [phone] [facility] Hospital[facility] [phone] ONE Generation [phone] [facility] [phone] [facility] [phone] Meals on Wheels [phone] For all ages: $6.85/ meal w side. Delivered M-F from 10 am-1pm. Application and payment is done over the phone. Frozen meals available for weekends. Emergency Food [facility] [phone] [facility] Library Technical Assistant [phone] [facility] [phone] [facility]- Brown bag lunches [phone] [facility] [phone] MEAL/GROCERY DELIVERY PROGRAMS: [facility] Meals [phone]- [facility] [phone]- [facility] Magic Kitchen [phone] Moms Meals [phone] (ask Multani for Discount Select grocery stores may provide delivery. MEDICAL INSURANCE SUPPORT SERVICES: Center for Health Care Rights [phone] Health Insurance Counseling/Advocacy Programs (HICAP)-Must have Medicare. Offers counseling for Medi-Dominga eligibility [phone] [facility] of Public Library Technical Assistant [phone] www.[facility].ca.gov Medicare [phone] www.socialsecurity.org Social Security [phone] SENIOR ACTIVITY PROGRAMS: *Contact a local senior center, adult school, recreation facility or community college for education, fitness, recreation, and social programs. Aquatic Therapy and Adapted Exercise programs through [facility] [phone] Encore at [facility] [phone] www.[facility]/encore U- Senior Friends [phone] [place] Senior Programs [phone] www.oasisnet.org Suddenly 65 www.vtonhywd21.com SENIOR CENTERS: [facility] Senior [place] [phone] [facility] [phone] [facility] [phone] [facility] [phone] [facility] [phone] [facility] [phone] [facility] [phone] [facility] [phone] One Generation, [facility] [phone] [facility] [phone] [facility] [phone] [facility] [phone] [facility] Ward [phone] TRANSPORTATION: Local [facility] Centers may have applications for transportation programs and additional resources. ACCESS Services [phone] Transportation for seniors and disabled persons 7 days a week requiring 254 hr. advance reservation. Must apply and register for program yola eligible. CITY RIDE [phone] or [phone] Transportation for seniors and persons with ADA card/metro disabled card in the [facility]. M-F only. Must register for services. ONE GENERATION [phone] Serves 65 years + in conjunction with Nine Star ride program. Must be registered with both programs. A to B Transport [phone] Provides wheelchair/gurney van service. Adult Medical Transport [phone] Accepts [facility] with prior authorization. Care Van [phone] Provides wheelchair Transport. [facility] Wide Transportation [phone] Provides gurney service Gentle Care [phone] Gurney Transport. [facility] Town Transportation [phone] wheelchair & gurney transport [facility] Transportation [phone] wheelchair & gurney transport [place] Non-Emergency Transport [phone] wheelchair & gurney transport [facility] [place] [phone] Short Term Transportation primarily for adults with disabilities on social security income. Nominal fee may apply and a reservation is required. City Cab [phone] or [phone] [facility] [phone] [place] [address] Referral Services -[phone] For additional programs & services VETERANS RESOURCES: Submissions for Aid and Attendance should be done directly to Federal VA office locatd at : [facility] [id number] [place] [phone] National Caregiver Support Line [phone] [facility] Veterans Services Field Office [phone] [place] Department of Affairs [phone] Pension Information [phone]
[2022-04-10 16:00] VITALS: BP 139/61
--- NOTE | 2022-04-10 18:34 | NUR ---
RN CLOSING NOTE; PATIENT AWAKE IN BED,A/OX4, ABLE TO MAKE NEEDS KNOWN,ON 2L O2 VIA NC TED WELL SATTING 99%,NO SOB/DISTRESS NOTED, ALL DUE MEDS ORDERED , C/O OF PAIN AND DISCOMFORT AND NORCO GIVEN ORDERED , , RIGHT UPPER MIDLINE 18 G WITH NS at 75 ML /HR ON GOING L.SAFETY MEASURES MAINTAINED: BED LOCKED AND AT LOWEST POSITION, RAILS UP X2, CALL LIGHT WITHIN REACH, ENDORSED TO NEXT SHIFT .
[2022-04-10 19:47] LABS: CALCIUM, SERUM 7.8 mg/dL (8.5-10.1); CARBON DIOXIDE 11 mmol/L (21-32); CHLORIDE 109 mmol/L (98-107); CREATININE 2.9 mg/dL (0.6-1.3); GLUCOSE 118 mg/dL (74-106); POTASSIUM 4.7 mmol/L (3.5-5.1); SODIUM SERUM 133 mmol/L (136-145); UREA NITROGEN, BLOOD 61 mg/dL (7-18)
[2022-04-10 20:00] VITALS: BP 150/63
[2022-04-11] MEDS: LACTULOSE 10 G/15 ML UDC (PYXIS) PO SCH ×5 (02:32→20:30)
--- NOTE | 2022-04-11 05:21 | NUR ---
RN CLOSING NOTES ALERT AND ORIENTATED X3 HEELS OFF THE BED WITH PILLOWS, NOTED HAD TO REPLACE D/T PT KICKS THE PILLOW OFF HE IS USING THE BEDSIDE COMMODE WITH ASSIST BAKER IN PLACE CLEAR YELLOW URINE NEEDS TO BE COAXED TO TAKE HIS MEDICATION AT TIMES ASP PRECAUTIONS
[2022-04-11 07:00] VITALS: BP 151/66
[2022-04-11] MEDS: PANTOPRAZOLE 40 MG TABLET.DR PO SCH (07:46)
--- NOTE | 2022-04-11 07:50 | NUR ---
MS RN OPENING NOTE; RECEIVED PATIENT AWAKE IN BED,A/OX4, ABLE TO MAKE NEEDS KNOWN,ON 2L O2 VIA NC TED WELL OXYGEN SATURATION OF 100%. NO SOB/DISTRESS NOTED, NO C/O OF PAIN AND DISCOMFORT NOTED , RIGHT UPPER MIDLINE 18 G, PATENT, FLUSHING WELL. SAFETY MEASURES MAINTAINED: BED LOCKED AND AT LOWEST POSITION, RAILS UP X2, CALL LIGHT WITHIN REACH,WILL CONTINUE TO MONITOR.
[2022-04-11] MEDS: PROSOURCE / PROSTAT (PYXIS) 30 ML UDC PO SCH ×3 (09:30→17:02)
[2022-04-11] MEDS: DAKINS QUARTER STRENGTH (0.125%) 480 ML BOTTLE TOP SCH (09:31)
[2022-04-11] MEDS: POVIDONE-IODINE OINT 28.4 GM TUBE TP SCH ×2 (09:46→17:02)
[2022-04-11 12:00] VITALS: BP 178/123
[2022-04-11] MEDS: IV NS 0.9% 1,000 ML IV PRN (12:54)
[2022-04-11] MEDS: CEFEPIME 1 GM in IV D5W 50 ML IV SCH (12:55)
[2022-04-11] MEDS: HYDROCODONE/APAP 5/325MG TABLET PO PRN (15:04)
[2022-04-11 16:00] VITALS: BP 150/61
--- NOTE | 2022-04-11 18:45 | NUR ---
MS RN CLOSING NOTE; PATIENT AWAKE IN BED,A/OX4, ABLE TO MAKE NEEDS KNOWN,ON 2L O2 VIA NC TED WELL SATTING 99%,NO SOB/DISTRESS NOTED, ALL DUE MEDS ORDERED , C/O OF PAIN AND DISCOMFORT AND NORCO GIVEN ORDERED , , RIGHT UPPER MIDLINE 18 G WITH NS at 75 ML /HR ON GOING. ASSISTED TOSTAND AND PIVOT INTO BEDSIDE COMMODE NEEDED FOR BM. Evans CATHETERR CARE MAINTAINED, DRAINING CLEAR, YELLOW URINE TO GRAVITY. SAFETY MEASURES MAINTAINED: BED LOCKED AND AT LOWEST POSITION, RAILS UP X2, CALL LIGHT WITHIN REACH, ENDORSED TO NEXT SHIFT .
--- NOTE | 2022-04-11 19:35 | NUR ---
MS RN OPENING NOTE; RECEIVED PATIENT AWAKE IN BED, PATIENT IS A/OX4, ABLE TO MAKE NEEDS KNOWN,ON ROOM AIR .NO SOB/DISTRESS NOTED, NO C/O OF PAIN AND DISCOMFORT NOTED. RIGHT UPPER ARM MIDLINE 18 G, PATENT FLUSHING WELL. ON NS AT 75 ML/HR. BAKER CATHETER INTACT AND DRAINING URINE BY GRAVITY. ALL SAFETY MEASURES MAINTAINED: BED LOCKED AND AT LOWEST POSITION, RAILS UP X2, CALL LIGHT WITHIN REACH,WILL CONTINUE TO MONITOR CLOSELY.
[2022-04-11 20:00] VITALS: BP 148/62
[2022-04-12] MEDS: CEFEPIME 1 GM in IV D5W 50 ML IV SCH ×2 (00:25→12:24)
[2022-04-12] MEDS: HYDROCODONE/APAP 5/325MG TABLET PO PRN (01:10)
[2022-04-12] MEDS: IV NS 0.9% 1,000 ML IV PRN ×2 (02:31→13:13)
[2022-04-12] MEDS: LACTULOSE 10 G/15 ML UDC (PYXIS) PO SCH ×4 (02:48→20:25)
--- NOTE | 2022-04-12 06:36 | NUR ---
MS RN CLOSING NOTE; PATIENT AWAKE IN BED, PATIENT IS A/OX4, ABLE TO MAKE NEEDS KNOWN,ON ROOM AIR .NO SOB/DISTRESS NOTED, NO C/O OF PAIN AND DISCOMFORT NOTED AT THIS TIME. RIGHT UPPER ARM MIDLINE 18 G, PATENT FLUSHING WELL. ON NS AT 75 ML/HR. BAKER CATHETER INTACT AND DRAINING URINE BY GRAVITY. URINE OUTPUT NOTED 1400 ML. ALL DUE MEDS AND TREATMENTS GIVEN ORDERED.ALL SAFETY MEASURES MAINTAINED: BED LOCKED AND AT LOWEST POSITION, RAILS UP X2, CALL LIGHT AND TABLE WITHIN REACH,WILL ENDORSE FOR KEV.
[2022-04-12 07:00] VITALS: BP 158/95
--- NOTE | 2022-04-12 07:53 | NUR ---
MS RN OPENING NOTE; RECEIVED PATIENT AWAKE SITTING UP IN BED, EATING BREAKFAST, A/OX4, ABLE TO MAKE NEEDS KNOWN,ON 2L O2 VIA NC. OXYGEN SATURATION IS 100%. NO SOB/DISTRESS NOTED, NO C/O OF PAIN AND DISCOMFORT NOTED. RIGHT UPPER ARM MIDLINE 18 G, PATENT, FLUSHING WELL. SAFETY MEASURES MAINTAINED: BED LOCKED AND AT LOWEST POSITION, RAILS UP X2, CALL LIGHT WITHIN REACH, WILL CONTINUE TO MONITOR.
[2022-04-12] MEDS: PANTOPRAZOLE 40 MG TABLET.DR PO SCH (07:55)
[2022-04-12] MEDS: PROSOURCE / PROSTAT (PYXIS) 30 ML UDC PO SCH ×3 (08:44→16:27)
[2022-04-12] MEDS: DAKINS QUARTER STRENGTH (0.125%) 480 ML BOTTLE TOP SCH (08:45)
[2022-04-12] MEDS: POVIDONE-IODINE OINT 28.4 GM TUBE TP SCH ×2 (08:45→16:27)
[2022-04-12] MEDS: ENSURE ENLIVE CHOC 237 ML CAN PO SCH (18:16)
--- NOTE | 2022-04-12 18:39 | NUR ---
MS RN CLOSING NOTE; PATIENT AWAKE IN BED, A/OX4, ABLE TO MAKE NEEDS KNOWN, ON 2L O2 VIA NC TOLERATES WELL SATTING 100%. NO SOB/DISTRESS NOTED, ALL DUE MEDS GIVEN ORDERED. NO C/O OF PAIN. RIGHT UPPER ARM MIDLINE 18 G WITH NS at 75 ML /HR ON INFUSING. ASSISTED TO STAND AND PIVOT INTO BEDSIDE COMMODE NEEDED FOR BM. BAKER CATHETER CARE MAINTAINED, DRAINING CLEAR, YELLOW URINE TO GRAVITY. SAFETY MEASURES MAINTAINED: BED LOCKED AND AT LOWEST POSITION, RAILS UP X2, CALL LIGHT WITHIN REACH, ENDORSED TO NEXT SHIFT .
--- NOTE | 2022-04-12 19:30 | NUR ---
MS RN OPENING NOTE; RECEIVED PATIENT AWAKE IN BED, PATIENT IS A/OX4, ABLE TO MAKE NEEDS KNOWN, HARD OF HEARING.ON ROOM AIR . AND PRN NASAL CANNULA AT 2 L/MIN.NO SOB/DISTRESS NOTED, NO PAIN NOTED . NO DISCOMFORT NOTED. RIGHT UPPER ARM MIDLINE 18 G, PATENT FLUSHING WELL. ON NS AT 75 ML/HR. BAKER CATHETER INTACT AND DRAINING URINE BY GRAVITY. ALL SAFETY MEASURES MAINTAINED: BED LOCKED AND AT LOWEST POSITION, RAILS UP X2, CALL LIGHT AND TABLE WITHIN EASY REACH,WILL CONTINUE TO MONITOR CLOSELY.
[2022-04-12 20:20] VITALS: BP 148/69
[2022-04-13] MEDS: CEFEPIME 1 GM in IV D5W 50 ML IV SCH (00:48)
[2022-04-13] MEDS: LACTULOSE 10 G/15 ML UDC (PYXIS) PO SCH ×4 (02:24→20:12)
[2022-04-13] MEDS: IV NS 0.9% 1,000 ML IV PRN (06:04)
--- NOTE | 2022-04-13 06:27 | NUR ---
MS RN CLOSING NOTE; PATIENT AWAKE IN BED, PATIENT IS A/OX4, ABLE TO MAKE NEEDS KNOWN,ON ROOM AIR .NO SOB/DISTRESS NOTED, NO C/O OF PAIN AND DISCOMFORT NOTED AT THIS TIME. RIGHT UPPER ARM MIDLINE 18 G, PATENT FLUSHING WELL. ON NS AT 75 ML/HR. BAKER CATHETER INTACT AND DRAINING URINE BY GRAVITY. URINE OUTPUT NOTED 2100 ML. ALL DUE MEDS AND TREATMENTS GIVEN ORDERED.ALL SAFETY MEASURES MAINTAINED: BED LOCKED AND AT LOWEST POSITION, RAILS UP X2, CALL LIGHT AND TABLE WITHIN REACH,WILL ENDORSE FOR KEV.
--- NOTE | 2022-04-13 07:25 | NUR ---
MS RN OPENING NOTE; RECEIVED PATIENT AWAKE IN BED, PATIENT IS A/OX4, ABLE TO MAKE NEEDS KNOWN, HARD OF HEARING. ON ROOM AIR AND PRN NASAL CANNULA AT 2 L/MIN. NO SOB OR RESPIRATORY DISTRESS NOTED. IV ACCESS AT RIGHT UPPER ARM MIDLINE 18 G, PATENT FLUSHING WELL. ON NS AT 75 ML/HR. BAKER CATHETER INTACT AND DRAINING URINE BY GRAVITY. ALL SAFETY MEASURES MAINTAINED: BED LOCKED AND AT LOWEST POSITION, RAILS UP X2, CALL LIGHT AND TABLE WITHIN EASY REACH,WILL CONTINUE TO MONITOR CLOSELY.
[2022-04-13 08:00] VITALS: BP 140/62
[2022-04-13] MEDS: HYDROCODONE/APAP 5/325MG TABLET PO PRN ×2 (08:21→13:50)
[2022-04-13] MEDS: PANTOPRAZOLE 40 MG TABLET.DR PO SCH (08:21)
[2022-04-13] MEDS: ENSURE ENLIVE CHOC 237 ML CAN PO SCH ×2 (08:24→17:55)
[2022-04-13] MEDS: POVIDONE-IODINE OINT 28.4 GM TUBE TP SCH ×2 (09:00→16:46)
[2022-04-13] MEDS: DAKINS QUARTER STRENGTH (0.125%) 480 ML BOTTLE TOP SCH ×4 (09:00→16:48)
--- NOTE | 2022-04-13 09:30 | NUR ---
pt refused wound care. he said he had gotten it earlier in the morning or late at night and would prefer its cleaned later
[2022-04-13 09:34] LABS: BASOPHILS % (AUTO) 0.7 % (0.0-2.0); EOSINOPHILS % (AUTO) 3.2 % (0.0-6.0); HEMATOCRIT 23 % (39-51); HEMOGLOBIN 7.5 g/dL (13.5-17.5); LYMPHOCYTES # (AUTO) 0.5 K/uL (0.8-4.8); LYMPHOCYTES % (AUTO) 18.2 % (20.0-44.0); MEAN CORPUSCULAR HGB CONC 33 g/dl (31.0-36.0); MEAN CORPUSCULAR VOLUME 92 fL (80-96); MONOCYTES # (AUTO) 0.3 K/uL (0.1-1.30); MONOCYTES % (AUTO) 12.2 % (2.0-12.0); NEUTROPHILS # (AUTO) 1.7 K/uL (1.8-8.9); NEUTROPHILS % (AUTO) 65.7 % (43.0-81.0); PLATELET COUNT (AUTO) 75 K/uL (150-450); RED BLOOD CELL COUNT(AUTO) 2.48 MIL/uL (4.5-6.0); WHITE BLOOD COUNT (AUTO) 2.6 K/uL (4.3-11.0)
[2022-04-13 10:04] LABS: CHLORIDE 112 mmol/L (98-107); GLUCOSE 168 mg/dL (74-106); POTASSIUM 4.1 mmol/L (3.5-5.1); SODIUM SERUM 136 mmol/L (136-145); UREA NITROGEN, BLOOD 58 mg/dL (7-18)
[2022-04-13 10:18] LABS: CARBON DIOXIDE 8 mmol/L (21-32)
--- NOTE | 2022-04-13 10:18 | NUR ---
RECEIVED CRITICAL LAB VALUE FROM PILAR IN LAB. CO2 WAS AT 8. NOTIFIED.
[2022-04-13] MEDS: PROSOURCE / PROSTAT (PYXIS) 30 ML UDC PO SCH ×3 (10:41→16:49)
[2022-04-13] MEDS ORDERED: IV NS 0.9% 1,000 ML IV SCH (12:30)
[2022-04-13] MEDS ORDERED: Sodium Bicarbonate 150 MEQ in IV 1/2NS 1000 ML 1,000 ML IV SCH (12:30)
[2022-04-13] MEDS ORDERED: CEFEPIME 1 GM in IV D5W 50 ML IV SCH (13:00)
--- NOTE | 2022-04-13 13:36 | NUR ---
PT REFUSING LACTULOSE.
[2022-04-13] MEDS ORDERED: HYDR-3972 PO (13:55)
[2022-04-13 16:00] VITALS: BP 127/64
[2022-04-13] MEDS ORDERED: SODI650T PO (16:22)
[2022-04-13] MEDS ORDERED: D5W IV ONE (16:30)
[2022-04-13] MEDS ORDERED: Sodium Bicarbonate 50 MEQ/50 ML VIAL IV ONE (16:30)
[2022-04-13] MEDS ORDERED: SODIUM BICARBONATE IV ONE (16:30)
--- NOTE | 2022-04-13 18:56 | NUR ---
MS RN CLOSING NOTE; PATIENT AWAKE IN BED, PATIENT IS A/OX4, ABLE TO MAKE NEEDS KNOWN,ON ROOM AIR. NO SOB/DISTRESS NOTED, NO C/O OF PAIN AND DISCOMFORT NOTED AT THIS TIME. RIGHT UPPER ARM MIDLINE 18 G, PATENT FLUSHING WELL. BAKER CATHETER INTACT AND DRAINING URINE BY GRAVITY. D/C PLANNING IN PLACE FOR TOMORROW. ALL DUE MEDS AND TREATMENTS GIVEN ORDERED.ALL SAFETY MEASURES MAINTAINED: BED LOCKED AND AT LOWEST POSITION, RAILS UP X2, CALL LIGHT AND TABLE WITHIN REACH,WILL ENDORSE FOR KEV.
--- NOTE | 2022-04-13 19:25 | NUR ---
RN OPENING NOTE; RECEIVED PT IN BED AAOX4 ABLE TO MAKE NEEDS KNOWN,TED WELL ON RM AIR SATTING 98%,NO SIGN SOB/DISTRESS NOTED,NO COMPLAIN OF PAIN /DISCOMFORT AT TH8IS TIME,IV SITE ON RFA 20G SL,INTACT AND PATENT,SAFETY MEASURE IN PLACE,CALL LIGHT WITHIN REACH,WILL CONTINUE TO MONITOR.
[2022-04-13 22:09] LABS: EOSINOPHILS % (MANUAL) 4 % (0-4); LYMPHOCYTES % (MANUAL) 16 % (16-48); MONOCYTES % (MANUAL) 6 % (0-11.0); NEUTROPHILS % (MANUAL) 74 (42-76)
[2022-04-14] MEDS: LACTULOSE 10 G/15 ML UDC (PYXIS) PO SCH ×2 (02:31→08:39)
--- NOTE | 2022-04-14 06:16 | NUR ---
RN CLOSING NOTE; PATIENT IN BED AAOX4 ABLE TO MAKE NEEDS KNOWN,TED WELL ON RM AIR SATTING 97.4%,NO SIGN SOB/DISTRESS NOTED,NO COMPLAIN OF PAIN /DISCOMFORT DURING SHIFT,DUE MEDS GIVEN ORDER,ALL NEEDS ATTENDED,,IV SITE ON RFA 20G SL,INTACT AND PATENT,SAFETY MEASURE IN PLACE,CALL LIGHT WITHIN REACH,WILL ENDORSED TO NEXT SHIFT.
[2022-04-14 06:51] LABS: CALCIUM, SERUM 8.1 mg/dL (8.5-10.1); CARBON DIOXIDE 14 mmol/L (21-32); CHLORIDE 111 mmol/L (98-107); CREATININE 2.9 mg/dL (0.6-1.3); GLUCOSE 107 mg/dL (74-106); POTASSIUM 3.8 mmol/L (3.5-5.1); SODIUM SERUM 139 mmol/L (136-145); UREA NITROGEN, BLOOD 57 mg/dL (7-18)
--- NOTE | 2022-04-14 07:55 | NUR ---
RN OPENING NOTE PATIENT AWAKE IN BED RESTING, A/O X 4. NO S/S OF PAIN NOTED AT THIS TIME. ON ROOM AIR, NO DISTRESS OR SHORTNESS OF BREATH NOTED. IV ACCESS BRAN #18G, INTACT, PATENT AND FLUSHING WELL. FALL AND SAFETY MEASURES IN PLACE, BED ALARM ON, BED IN LOW AND LOCK POSITION, CALL LIGHT AND TABLE WITHIN EASY REACH, SIDE RAILS UP X2. WILL CONTINUE TO MONITOR.
[2022-04-14 08:00] VITALS: BP_SYST 106; BP_SYST 126; BP_DIAS 69; BP_DIAS 77
[2022-04-14] MEDS: PANTOPRAZOLE 40 MG TABLET.DR PO SCH (08:38)
[2022-04-14] MEDS: PROSOURCE / PROSTAT (PYXIS) 30 ML UDC PO SCH ×2 (08:38→13:29)
[2022-04-14] MEDS: POVIDONE-IODINE OINT 28.4 GM TUBE TP SCH (08:39)
[2022-04-14] MEDS: ENSURE ENLIVE CHOC 237 ML CAN PO SCH (08:41)
[2022-04-14] MEDS: HYDROCODONE/APAP 5/325MG TABLET PO PRN (08:47)
--- NOTE | 2022-04-14 14:30 | NUR ---
DUPLICATING MACHINE MECHANIC NOTE PATIENT DISCHARGE IN STABLE MEDICAL CONDITION. A/O X4, V/S TAKEN STABLE AND RECORDED. NO IV ACCESS. NAME ARM BAND REMOVED. SKIN ASSESSMENT DONE AND PICTURES TAKEN, WOUND CARE PROVIDED BEFORE DISCHARGE. ALL BELONGINGS CHECKED AND BELONGING LIST SINGED. HEALTH TEACHING AND DISCHARGE INSTRUCTIONS GIVEN TO PATAIENT AND NURSE AT FACILITY, AND VERBALIZED UNDERSTANDING. INSTRUCTED PATIENT TO FOLLOW UP WITH PRIMARY DOCTOR, DISCUSSED PRESCRIPTIONS. INSTRUCTED PATIENT IN CASE OF EMERGENCY TO CALL 911 OR GO TO NEAREST ER. PATIENT WENT TO [facility], REPORT WAS GIVEN TO JACOB ZAMUDIO AT 1300. PATIENT LEFT UNIT VIA GURNEY WITH NO SIGNS OF DISTRESS ACCOMPANIED BY OUTBOUND CALL CENTER REPRESENTATIVE. CHARGE NURSE AWARE OF DISCHARGE.
== END 2022-04-14 15:00 | DRG 853 ==
LOC: ER 01:41 → TELE 08:52 → MED 04-05 11:23
PROVIDERS: ADMIT Nurse Practitioner Acute Care; ATTEND Nurse Practitioner Acute Care
PROC: 30233N1 Transfusion of Nonautologous Red Blood Cells into Peripheral Vein, Percutaneous Approach (ICD-10-PCS; 2022-04-03)
PROC: 0JBQ0ZZ Excision of Right Foot Subcutaneous Tissue and Fascia, Open Approach (ICD-10-PCS; principal; 2022-04-07)
PROC: 0Y6P0Z3 Detachment at Right 1st Toe, Low, Open Approach (ICD-10-PCS; 2022-04-07)
PROC: 05H933Z Insertion of Infusion Device into Right Brachial Vein, Percutaneous Approach (ICD-10-PCS; 2022-04-09)
DX: A41.9 Sepsis, unspecified organism (principal); G92.8 Other toxic encephalopathy; N17.0 Acute kidney failure with tubular necrosis; K76.7 Hepatorenal syndrome; E44.0 Moderate protein-calorie malnutrition; D61.818 Other pancytopenia; M86.171 Other acute osteomyelitis, right ankle and foot; L97.419 Non-pressure chronic ulcer of right heel and midfoot with unspecified severity; L03.115 Cellulitis of right lower limb; N39.0 Urinary tract infection, site not specified; E87.1 Hypo-osmolality and hyponatremia; N13.6 Pyonephrosis; D62 Acute posthemorrhagic anemia; L97.429 Non-pressure chronic ulcer of left heel and midfoot with unspecified severity; E87.20 Acidosis, unspecified; M86.671 Other chronic osteomyelitis, right ankle and foot; E11.621 Type 2 diabetes mellitus with foot ulcer; Z20.822 Contact with and (suspected) exposure to COVID-19; E11.69 Type 2 diabetes mellitus with other specified complication; E11.22 Type 2 diabetes mellitus with diabetic chronic kidney disease; L97.519 Non-pressure chronic ulcer of other part of right foot with unspecified severity; Z98.890 Other specified postprocedural states; Z91.018 Allergy to other foods; Z79.82 Long term (current) use of aspirin; Z79.899 Other long term (current) drug therapy; K21.9 Gastro-esophageal reflux disease without esophagitis; I25.10 Atherosclerotic heart disease of native coronary artery without angina pectoris; Z80.3 Family history of malignant neoplasm of breast; Z80.8 Family history of malignant neoplasm of other organs or systems; Z80.6 Family history of leukemia; Z87.891 Personal history of nicotine dependence; Z90.79 Acquired absence of other genital organ(s); N40.0 Benign prostatic hyperplasia without lower urinary tract symptoms; N18.9 Chronic kidney disease, unspecified; I12.9 Hypertensive chronic kidney disease with stage 1 through stage 4 chronic kidney disease, or unspecified chronic kidney disease; E78.5 Hyperlipidemia, unspecified; E86.9 Volume depletion, unspecified; D63.8 Anemia in other chronic diseases classified elsewhere; K74.60 Unspecified cirrhosis of liver; L97.529 Non-pressure chronic ulcer of other part of left foot with unspecified severity; F03.90 Unspecified dementia, unspecified severity, without behavioral disturbance, psychotic disturbance, mood disturbance, and anxiety; Z86.16 Personal history of COVID-19; E88.09 Other disorders of plasma-protein metabolism, not elsewhere classified; Z87.440 Personal history of urinary (tract) infections; E86.1 Hypovolemia; Z87.19 Personal history of other diseases of the digestive system; R31.9 Hematuria, unspecified; D69.6 Thrombocytopenia, unspecified; B96.5 Pseudomonas (aeruginosa) (mallei) (pseudomallei) as the cause of diseases classified elsewhere; Z87.81 Personal history of (healed) traumatic fracture
CPT/HCPCS: 36415; 71045-TC; 73630-TC; 76770-TC; 80048-TC; 80076-TC; 80202-TC; 81001; 82272-TC; 82962-TC; 83605-TC; 83735-TC; 83880; 84100-TC; 84484-TC; 85025-TC; 85027-TC; 85610-TC; 85730-TC; 86850-TC; 87040-TC; 87081-TC; 87086-TC; 88305-TC; 88311-TC; 97110-TC; 97112-TC; 97116-TC; 97530-TC; A6209; A6253; A6403; C9803; G0378; J0690; J0692; J0696; J1100; J2405; J3010; J3370; J3490; J7030; J7040; J7042; J7060; P9016